=== PATIENT | female | born 1940 | race Caucasian/White ===

== ENCOUNTER 2017-04-19 21:56 | Emergency (ER) | payer MEDICARE, OTHER ==
[~2017-04-19] VITALS: Ht 154.9 cm; Wt 56.8 kg
[~2017-04-19 21:56] MED LIST: AMLO5TAB2 PO; ASCO-196 PO; ATEN25TA PO; CHOL100046 PO; CYCL-1 PO; FOLI0.8T7 PO; FURO40TA4 PO; GABA-530 PO; OMEP40CA37 PO; SEVE800T8 PO
[2017-04-19 22:47] LABS: BASOPHILS % (AUTO) 0.3 % (0-1); EOSINOPHILS # (AUTO) 0.3 X10'3 (0-0.9); EOSINOPHILS % (AUTO) 3.4 % (0-6); HEMATOCRIT 31.5 % (35.0-45.0); HEMOGLOBIN 10.6 g/dl (12.0-16.0); LYMPHOCYTES # (AUTO) 0.7 X10'3 (1.1-4.8); MEAN CORPUSCULAR HEMOGLOBIN 32.8 PG (27.0-31.0); MEAN CORPUSCULAR HGB CONC 33.4 % (33.0-36.5); MEAN PLATELET VOLUME 7.7 FL (7.4-10.4); MONOCYTES # (AUTO) 0.4 X10'3 (0-0.9); MONOCYTES % (AUTO) 4.5 % (2-12); NEUTROPHILS # (AUTO) 7.7 X10'3 (1.8-7.7); NEUTROPHILS % (AUTO) 83.8 % (42-75); PLATELET COUNT 183 X10'3 (140-440); RED BLOOD COUNT 3.22 X10'6 (4.20-5.60); RED CELL DISTRIBUTION WIDTH 14.3 % (11.5-14.5); WHITE BLOOD COUNT 9.1 X10'3 (4.5-11.0)
[2017-04-19 22:58] LABS: ALANINE AMINOTRANSFERASE 31 U/L (12-78); ALBUMIN 3.6 G/DL (3.4-5.0); ALBUMIN/GLOBULIN RATIO 0.8 (1.1-1.5); ALKALINE PHOSPHATASE 120 IU/L (46-116); ANION GAP 8 (8-16); ASPARTATE AMINO TRANSFERASE 21 U/L (10-37); BILIRUBIN,TOTAL 0.4 MG/DL (0.1-1.0); BLOOD UREA NITROGEN 45 MG/DL (7-18); BUN/CREATININE RATIO 7.4 (6.6-38.0); CALCIUM 9.2 MG/DL (8.5-10.1); CHLORIDE 101 MMOL/L (99-107); CREATININE 6.06 MG/DL (0.40-0.90); GLUCOSE 202 MG/DL (70-104); SODIUM 136 MMOL/L (135-145); TOTAL CARBON DIOXIDE 26.7 MMOL/L (24-32); TOTAL PROTEIN 7.9 G/DL (6.4-8.2); eGFR 7 ML/MIN
[2017-04-19 22:59] LABS: D-DIMER 2.61 MG/L FEU (0-0.50); INR 0.9 INR; PARTIAL THROMBOPLASTIN TIME 29 SECONDS (22-32); PROTHROMBIN TIME 9.7 SECONDS (9.0-12.0)
[2017-04-19] MEDS ORDERED: nitroGLYCERIN 1gm ointment UD TP ONE (23:55)
[2017-04-20] MEDS ORDERED: amLODIPine 5mg tablet PO STA (00:56)
[2017-04-20] MEDS ORDERED: metoprolol tartrate 50mg tablet PO STA (00:56)
[2017-04-20] MEDS ORDERED: furosemide 10 MG/1 ML 10ml inj IV STA (00:56)
[2017-04-20] MEDS ORDERED: acetaminophen 325mg tablet PO ONE (04:05)
[2017-04-20] MEDS ORDERED: iohexol 350MG/ML 100ml bottle IV ONE (07:50)
[2017-04-20 09:42] VITALS: BP 170/87
== END 2017-04-20 11:31 | disposition home or self-care (01) ==
LOC: ER 21:56
DX: R06.02 Shortness of breath (principal); R07.9 Chest pain, unspecified; R05 Cough; I50.9 Heart failure, unspecified; E11.22 Type 2 diabetes mellitus with diabetic chronic kidney disease; N18.6 End stage renal disease; Z99.2 Dependence on renal dialysis
CPT/HCPCS: 36415; 71045; 71275; 80053; 83880; 84484; 85025; 85379; 85610; 85730; 87502; 87503; 93005; 99285; J7030; Q9967; J1940

== ENCOUNTER 2017-05-09 03:50 | Emergency (ER) | payer MEDICARE, OTHER ==
[~2017-05-09] VITALS: Ht 157.5 cm; Wt 56.4 kg
[2017-05-09] MEDS ORDERED: METO-467 PO (04:24)
[2017-05-09] MEDS ORDERED: ipratropium/albuterol 3ml nebule NEB ONE (04:25)
[2017-05-09] MEDS ORDERED: dexamethasone sod phosphate 10mg/ml inj IV STA (04:25)
[2017-05-09 04:47] LABS: BASOPHILS # (AUTO) 0.1 X10'3 (0-0.2); BASOPHILS % (AUTO) 0.8 % (0-1); EOSINOPHILS # (AUTO) 0.2 X10'3 (0-0.9); HEMATOCRIT 33.7 % (35.0-45.0); HEMOGLOBIN 11.4 g/dl (12.0-16.0); LYMPHOCYTES # (AUTO) 1.2 X10'3 (1.1-4.8); LYMPHOCYTES % (AUTO) 10.2 % (21-51); MEAN CORPUSCULAR HEMOGLOBIN 33.4 PG (27.0-31.0); MEAN CORPUSCULAR VOLUME 98.2 FL (78-98); MEAN PLATELET VOLUME 9.2 FL (7.4-10.4); MONOCYTES # (AUTO) 0.6 X10'3 (0-0.9); MONOCYTES % (AUTO) 4.9 % (2-12); NEUTROPHILS # (AUTO) 9.8 X10'3 (1.8-7.7); NEUTROPHILS % (AUTO) 82.1 % (42-75); PLATELET COUNT 148 X10'3 (140-440); RED BLOOD COUNT 3.43 X10'6 (4.20-5.60); RED CELL DISTRIBUTION WIDTH 15.9 % (11.5-14.5); WHITE BLOOD COUNT 11.9 X10'3 (4.5-11.0)
[2017-05-09 06:29] LABS: ALANINE AMINOTRANSFERASE 25 U/L (12-78); ALBUMIN 3.6 G/DL (3.4-5.0); ALBUMIN/GLOBULIN RATIO 0.9 (1.1-1.5); ALKALINE PHOSPHATASE 106 IU/L (46-116); ANION GAP 15 (8-16); ASPARTATE AMINO TRANSFERASE 16 U/L (10-37); BILIRUBIN,TOTAL 0.5 MG/DL (0.1-1.0); BLOOD UREA NITROGEN 63 MG/DL (7-18); BUN/CREATININE RATIO 8.9 (6.6-38.0); CALCIUM 8.9 MG/DL (8.5-10.1); CHLORIDE 100 MMOL/L (99-107); GLUCOSE 244 MG/DL (70-104); POTASSIUM 3.9 MMOL/L (3.5-5.1); SODIUM 139 MMOL/L (135-145); TOTAL CARBON DIOXIDE 24.1 MMOL/L (24-32); TOTAL PROTEIN 7.6 G/DL (6.4-8.2); eGFR 6 ML/MIN
[2017-05-09 07:10] VITALS: BP 135/56
== END 2017-05-09 07:10 | disposition home or self-care (01) ==
LOC: ER 03:50
DX: R06.02 Shortness of breath (principal); E11.22 Type 2 diabetes mellitus with diabetic chronic kidney disease; N18.6 End stage renal disease; I50.9 Heart failure, unspecified; Z98.890 Other specified postprocedural states; Z99.2 Dependence on renal dialysis; Z95.1 Presence of aortocoronary bypass graft; Z79.899 Other long term (current) drug therapy
CPT/HCPCS: 36415; 71045; 80053; 83880; 84484; 85025; 93005; 94640; 94760; 96374; 99285; J1100; J7030

== ENCOUNTER 2017-09-21 02:00 | Inpatient (IN) | payer MEDICARE, OTHER ==
[~2017-09-21] VITALS: Ht 162.6 cm; Wt 45.0 kg
[~2017-09-21 02:00] MED LIST changes: +AMLO2.5T2 PO; -ATEN25TA PO; -FURO40TA4 PO; +METO-395 PO; +METO-467 PO; +OMEP20TA5 PO
[2017-09-21 02:33] LABS: BASOPHILS # (AUTO) 0.1 X10'3 (0-0.2); BASOPHILS % (AUTO) 0.4 % (0-1); EOSINOPHILS # (AUTO) 0.3 X10'3 (0-0.9); EOSINOPHILS % (AUTO) 2.9 % (0-6); HEMATOCRIT 28.3 % (35.0-45.0); HEMOGLOBIN 9.7 g/dl (12.0-16.0); LYMPHOCYTES # (AUTO) 0.9 X10'3 (1.1-4.8); LYMPHOCYTES % (AUTO) 7.9 % (21-51); MEAN CORPUSCULAR HEMOGLOBIN 33.8 PG (27.0-31.0); MEAN CORPUSCULAR HGB CONC 34.2 % (33.0-36.5); MEAN CORPUSCULAR VOLUME 98.7 FL (78-98); MEAN PLATELET VOLUME 8.3 FL (7.4-10.4); MONOCYTES # (AUTO) 0.3 X10'3 (0-0.9); MONOCYTES % (AUTO) 2.4 % (2-12); NEUTROPHILS # (AUTO) 10.3 X10'3 (1.8-7.7); NEUTROPHILS % (AUTO) 86.4 % (42-75); PLATELET COUNT 224 X10'3 (140-440); RED BLOOD COUNT 2.86 X10'6 (4.20-5.60); RED CELL DISTRIBUTION WIDTH 15.8 % (11.5-14.5); WHITE BLOOD COUNT 11.9 X10'3 (4.5-11.0)
[2017-09-21 02:43] LABS: PARTIAL THROMBOPLASTIN TIME 25 SECONDS (22-32); PROTHROMBIN TIME 10.1 SECONDS (9.0-12.0)
[2017-09-21 02:49] LABS: ALANINE AMINOTRANSFERASE 28 U/L (12-78); ALBUMIN 3.4 G/DL (3.4-5.0); ALBUMIN/GLOBULIN RATIO 0.7 (1.1-1.5); ALKALINE PHOSPHATASE 118 IU/L (46-116); ANION GAP 16 (8-16); ASPARTATE AMINO TRANSFERASE 21 U/L (10-37); BILIRUBIN,TOTAL 0.5 MG/DL (0.1-1.0); BLOOD UREA NITROGEN 42 MG/DL (7-18); BUN/CREATININE RATIO 6.3 (6.6-38.0); CALCIUM 8.5 MG/DL (8.5-10.1); CHLORIDE 100 MMOL/L (99-107); CREATININE 6.67 MG/DL (0.40-0.90); GLUCOSE 279 MG/DL (70-104); POTASSIUM 3.9 MMOL/L (3.5-5.1); SODIUM 140 MMOL/L (135-145); TOTAL CARBON DIOXIDE 23.7 MMOL/L (24-32); TOTAL PROTEIN 8.1 G/DL (6.4-8.2); eGFR 6 ML/MIN
[2017-09-21] MEDS ORDERED: magnesium hydroxide 30ml (MOM) UD suspension PO PRN (03:25)
[2017-09-21] MEDS ORDERED: acetaminophen 325mg tablet PO PRN (03:25)
[2017-09-21 04:46] LABS: ABG BASE EXCESS 1.1 mmol/L (-2.0-3.0); ABG HCO3 25.5 mmol/L (22.0-26.0); ABG OXYGEN SATURATION 96.8 % (95-98); ABG PCO2 (T) 39.4 mmHg (32.0-45.0); ABG PH (T) 7.428 (7.350-7.450); ABG PO2 (T) 100.4 mmHg (83-108); ALLEN'S TEST Positive; FCOHb 0.1 % (0.5-1.5); FMetHb 0.3 % (0.3-1.12); FO2Hb 96.4 % (94-100); PATIENT TEMPERATURE 36.9; RESPIRATORY RATE 12 b/min; TOTAL HEMOGLOBIN 9.7 G/dl (12.0-16.0)
[2017-09-21] MEDS ORDERED: heparin 1,000unit/ml 10ml vial 10 ML IV ONE (04:53)
[2017-09-21] MEDS ORDERED: normal saline 1000ml 250 ML IV PRN (04:53)
[2017-09-21] MEDS ORDERED: heparin 1,000 units/ml 10ml inj IV ONE (04:55)
[2017-09-21] MEDS ORDERED: albumin (Human) 5% 250ml 250 ML IV PRN (04:55)
[2017-09-21] MEDS ORDERED: epoetin 20,000 units/ml inj IV ONE (04:55)
[2017-09-21] MEDS ORDERED: heparin 1,000 units/ml 10ml inj HE ONE ×2 (05:00)
[2017-09-21 05:15] VITALS: BP 153/57
[2017-09-21 07:50] VITALS: BP 116/63
[2017-09-21] MEDS ORDERED: METO25TA6 PO (07:51)
[2017-09-21] MEDS ORDERED: heparin, porcine 5000 units/ml vial SQ SCH (08:00)
[2017-09-21] MEDS ORDERED: LIDOcaine 1% (10mg/ml) 2ml vial SQ ONE (08:40)
[2017-09-21 11:11] VITALS: BP 145/61
[2017-09-21] MEDS ORDERED: folic acid/vitamin B complex w/vitamin C 0.8mg tablet PO SCH (16:05)
[2017-09-21] MEDS ORDERED: cyclobenzaprine 10mg tablet PO PRN (16:05)
[2017-09-21] MEDS ORDERED: gabapentin 100mg capsule PO PRN (16:05)
[2017-09-21] MEDS ORDERED: vitamin D (cholecalciferol) 1,000 unit tablet PO SCH (16:05)
[2017-09-21] MEDS ORDERED: amLODIPine 5mg tablet PO ONE (16:20)
[2017-09-21] MEDS ORDERED: heparin, porcine 5000 units/ml vial SQ ONE (16:20)
[2017-09-21] MEDS ORDERED: metoprolol tartrate 25mg tablet PO ONE (16:20)
[2017-09-21] MEDS ORDERED: sevelamer carbonate 800mg tablet PO SCH (18:00)
[2017-09-21] MEDS ORDERED: metoprolol tartrate 25mg tablet PO SCH (20:00)
[2017-09-21] MEDS ORDERED: amLODIPine 5mg tablet PO SCH (20:00)
[2017-09-21] MEDS ORDERED: gabapentin 100mg capsule PO SCH (21:00)
[2017-09-22] MEDS ORDERED: pantoprazole 40mg Tablet.DR PO SCH (08:00)
== END 2017-09-21 17:20 | disposition home or self-care (01) | DRG 291 ==
LOC: ER 02:00 → ED HOLD 03:24 → PCU 3S 05:00
PROVIDERS: ATTEND Internal Medicine Critical Care Medicine
PROC: 5A1D70Z Performance of Urinary Filtration, Intermittent, Less than 6 Hours Per Day (ICD-10-PCS; principal; 2017-09-21)
PROC: 5A09357 Assistance with Respiratory Ventilation, Less than 24 Consecutive Hours, Continuous Positive Airway Pressure (ICD-10-PCS; 2017-09-21)
DX: I13.2 Hypertensive heart and chronic kidney disease with heart failure and with stage 5 chronic kidney disease, or end stage renal disease (principal); N18.6 End stage renal disease; J96.91 Respiratory failure, unspecified with hypoxia; E87.70 Fluid overload, unspecified; E11.22 Type 2 diabetes mellitus with diabetic chronic kidney disease; G25.81 Restless legs syndrome; I08.1 Rheumatic disorders of both mitral and tricuspid valves; I50.9 Heart failure, unspecified; Z99.2 Dependence on renal dialysis; Z79.899 Other long term (current) drug therapy; Z87.81 Personal history of (healed) traumatic fracture; Z80.52 Family history of malignant neoplasm of bladder
CPT/HCPCS: 36415; 36600; 71045; 80053; 82803; 83880; 84484; 85018; 85025; 85610; 85730; 87070; 93306; 94660; 94760; 99285; A6402; G0257; J0885; J1644; J3490; J7030

== ENCOUNTER 2017-10-09 03:22 | Emergency (ER) | payer MEDICARE, OTHER ==
[~2017-10-09] VITALS: Ht 154.9 cm; Wt 56.8 kg
[~2017-10-09 03:22] MED LIST changes: -AMLO2.5T2 PO; -ASCO-196 PO; -METO-395 PO; -METO-467 PO; +METO25TA6 PO; -OMEP40CA37 PO
[2017-10-09 03:52] LABS: BASOPHILS % (AUTO) 0.4 % (0-1); EOSINOPHILS # (AUTO) 0.2 X10'3 (0-0.9); EOSINOPHILS % (AUTO) 2.6 % (0-6); HEMATOCRIT 32.8 % (35.0-45.0); HEMOGLOBIN 11.1 g/dl (12.0-16.0); LYMPHOCYTES % (AUTO) 10.9 % (21-51); MEAN CORPUSCULAR VOLUME 102.8 FL (78-98); MEAN PLATELET VOLUME 8.4 FL (7.4-10.4); MONOCYTES # (AUTO) 0.4 X10'3 (0-0.9); MONOCYTES % (AUTO) 4.1 % (2-12); NEUTROPHILS # (AUTO) 7.5 X10'3 (1.8-7.7); PLATELET COUNT 179 X10'3 (140-440); RED BLOOD COUNT 3.19 X10'6 (4.20-5.60); RED CELL DISTRIBUTION WIDTH 17.1 % (11.5-14.5); WHITE BLOOD COUNT 9.2 X10'3 (4.5-11.0)
[2017-10-09 04:04] LABS: INR 0.9 INR; PARTIAL THROMBOPLASTIN TIME 28 SECONDS (22-32); PROTHROMBIN TIME 9.4 SECONDS (9.0-12.0)
[2017-10-09 04:08] LABS: ALANINE AMINOTRANSFERASE 20 U/L (12-78); ALBUMIN 3.9 G/DL (3.4-5.0); ALBUMIN/GLOBULIN RATIO 0.8 (1.1-1.5); ALKALINE PHOSPHATASE 134 IU/L (46-116); ANION GAP 7 (8-16); ASPARTATE AMINO TRANSFERASE 20 U/L (10-37); BILIRUBIN,TOTAL 0.5 MG/DL (0.1-1.0); BLOOD UREA NITROGEN 39 MG/DL (7-18); BUN/CREATININE RATIO 7.3 (6.6-38.0); CALCIUM 9.2 MG/DL (8.5-10.1); CHLORIDE 98 MMOL/L (99-107); CREATININE 5.31 MG/DL (0.40-0.90); GLUCOSE 187 MG/DL (70-104); POTASSIUM 3.2 MMOL/L (3.5-5.1); SODIUM 137 MMOL/L (135-145); TOTAL CARBON DIOXIDE 32.2 MMOL/L (24-32); TOTAL PROTEIN 8.6 G/DL (6.4-8.2); eGFR 8 ML/MIN
[2017-10-09] MEDS ORDERED: potassium Cl 20 mEq SR tablet PO ONE (05:00)
[2017-10-09 05:25] VITALS: BP 139/56
== END 2017-10-09 05:29 | disposition home or self-care (01) ==
LOC: ER 03:22
DX: J81.1 Chronic pulmonary edema (principal); E87.70 Fluid overload, unspecified; I50.9 Heart failure, unspecified; E11.9 Type 2 diabetes mellitus without complications; Z98.890 Other specified postprocedural states; Z79.899 Other long term (current) drug therapy; Z99.2 Dependence on renal dialysis
CPT/HCPCS: 36415; 71045; 80053; 84484; 85025; 85610; 85730; 93005; 99285

== ENCOUNTER 2018-06-01 08:37 | Day surgery (SDC) | payer MEDICARE, OTHER ==
[~2018-06-01] VITALS: Ht 154.9 cm; Wt 57.3 kg
[~2018-06-01 08:37] MED LIST changes: +AMLO-314 PO; -AMLO5TAB2 PO
[2018-06-01] MEDS ORDERED: normal saline 1000ml 1,000 ML IV SCH (09:10)
[2018-06-01] MEDS ORDERED: FURO80TA87 PO (09:12)
[2018-06-01] MEDS ORDERED: CALC668T PO (09:14)
[2018-06-01] MEDS ORDERED: HYDR-4069 PO (09:16)
[2018-06-01] MEDS ORDERED: ASPI81TA52 PO (09:18)
[2018-06-01 09:30] VITALS: BP 125/58
[2018-06-01 09:48] LABS: BASOPHILS # (AUTO) 0.1 X10'3 (0-0.2); BASOPHILS % (AUTO) 0.7 % (0-1); EOSINOPHILS # (AUTO) 0.2 X10'3 (0-0.9); EOSINOPHILS % (AUTO) 2.9 % (0-6); HEMATOCRIT 33.8 % (35.0-45.0); HEMOGLOBIN 11.1 g/dl (12.0-16.0); LYMPHOCYTES # (AUTO) 0.7 X10'3 (1.1-4.8); LYMPHOCYTES % (AUTO) 8.4 % (21-51); MEAN CORPUSCULAR HEMOGLOBIN 32.2 PG (27.0-31.0); MEAN CORPUSCULAR VOLUME 97.5 FL (78-98); MEAN PLATELET VOLUME 8.7 FL (7.4-10.4); MONOCYTES # (AUTO) 0.7 X10'3 (0-0.9); MONOCYTES % (AUTO) 8.1 % (2-12); NEUTROPHILS # (AUTO) 6.8 X10'3 (1.8-7.7); NEUTROPHILS % (AUTO) 79.9 % (42-75); PLATELET COUNT 176 X10'3 (140-440); RED BLOOD COUNT 3.46 X10'6 (4.20-5.60); RED CELL DISTRIBUTION WIDTH 16.9 % (11.5-14.5); WHITE BLOOD COUNT 8.5 X10'3 (4.5-11.0)
[2018-06-01 09:53] LABS: ALBUMIN 3.8 G/DL (3.4-5.0); ANION GAP 10 (8-16); BLOOD UREA NITROGEN 40 MG/DL (7-18); BUN/CREATININE RATIO 8.2 (6.6-38.0); CALCIUM 9.7 MG/DL (8.5-10.1); CHLORIDE 94 MMOL/L (99-107); CREATININE 4.89 MG/DL (0.40-0.90); GLUCOSE 92 MG/DL (70-104); POTASSIUM 3.9 MMOL/L (3.5-5.1); SODIUM 137 MMOL/L (135-145); TOTAL CARBON DIOXIDE 33.2 MMOL/L (24-32); eGFR 9 ML/MIN
[2018-06-01 10:09] LABS: PROTHROMBIN TIME 9.9 SECONDS (9.0-12.0)
[2018-06-01] MEDS ORDERED: LIDOcaine 1%/PF 5ML 10 MG/ML VIAL ONE (10:20)
[2018-06-01] MEDS ORDERED: LIDOcaine 1%/PF 5ML 10 MG/ML VIAL SQ ONE (10:20)
[2018-06-01] MEDS ORDERED: heparin 1,000 UNITS/NS 500ml 500 ML ICATH ONE (10:20)
[2018-06-01] MEDS ORDERED: midazolam 2 mg/2 ml injection ONE (10:20)
[2018-06-01] MEDS ORDERED: fentaNYL/PF 50MCG/1 ML 2ML syringe IV PRN (10:20)
[2018-06-01] MEDS ORDERED: midazolam 2 mg/2 ml injection IV PRN (10:20)
[2018-06-01] MEDS ORDERED: iohexol 300mg/ml 100ml inj. ONE (10:21)
[2018-06-01] MEDS ORDERED: fentaNYL/PF 50MCG/1 ML 2ML syringe ONE (10:21)
[2018-06-01] MEDS ORDERED: heparin 1,000 UNITS/NS 500ml 500 ML ONE (10:21)
[2018-06-01 11:31] VITALS: BP 144/48
[2018-06-01 11:46] VITALS: BP 140/75
[2018-06-01 12:01] VITALS: BP 148/69
[2018-06-01 12:15] VITALS: BP 145/63
[2018-06-01 12:31] VITALS: BP 154/67
== END 2018-06-01 12:55 | disposition home or self-care (01) ==
LOC: SSTAY O 08:37
PROVIDERS: ATTEND Radiology Diagnostic Radiology
DX: T82.858A Stenosis of other vascular prosthetic devices, implants and grafts, initial encounter (principal); Y83.8 Other surgical procedures as the cause of abnormal reaction of the patient, or of later complication, without mention of misadventure at the time of the procedure; Y92.89 Other specified places as the place of occurrence of the external cause; Z79.01 Long term (current) use of anticoagulants
CPT/HCPCS: 36415; 36902; 80048; 85025; 85610; 99152; 99153; J1644; J2001; J2250; J3010; J7030; Q9967; C1725; C1769; C1894

== ENCOUNTER 2018-06-21 23:36 | Inpatient (IN) | payer MEDICARE, OTHER | END 2018-06-23 20:00 | disposition still patient (30) | LOC: ER 23:36 → ED HOLD 06-22 02:18 → CICU 2S 06-22 04:47 | DX: I50.23 Acute on chronic systolic (congestive) heart failure (principal); J18.9 Pneumonia, unspecified organism; I21.A1 Myocardial infarction type 2; N18.6 End stage renal disease; I50.9 Heart failure, unspecified ==

== ENCOUNTER 2018-07-04 22:40 | Inpatient (IN) | payer MEDICARE, OTHER | END 2018-07-06 19:50 | disposition home or self-care (01) | LOC: ED HOLD 07-05 00:26 → ER 22:40 → PCU 3S 07-05 07:54 | DX: N18.6 End stage renal disease (principal); I50.1 Left ventricular failure, unspecified; E11.22 Type 2 diabetes mellitus with diabetic chronic kidney disease; Z99.2 Dependence on renal dialysis ==

== ENCOUNTER 2018-08-05 08:28 | Outpatient (CLI) | payer MEDICARE, OTHER ==
[2018-08-05] VITALS (8 sets, daily range): BP systolic 127–150; BP diastolic 51–59
[~2018-08-05] VITALS: Ht 154.9 cm; Wt 57.7 kg
[~2018-08-05 08:28] MED LIST changes: +ASPI81TA52 PO; +CALC668T PO; -CHOL100046 PO; -CYCL-1 PO; +FURO80TA87 PO; +HYDR-4069 PO; -SEVE800T8 PO
[2018-08-05] MEDS ORDERED: nitroGLYCERIN 0.4mg SUBLingual tab SL PRN (09:40)
[2018-08-05] MEDS ORDERED: aminophylline 250mg/10ml inj. IV PRN (09:40)
[2018-08-05] MEDS ORDERED: regadenoson 0.4mg/5ml syringe IV ONE (09:40)
[2018-08-05] MEDS ORDERED: normal saline 500ml IV soln 500 ML IV ONE (09:40)
== END 2018-08-05 23:59 | disposition home or self-care (01) ==
LOC: CARD DIAG 08:28
PROVIDERS: ATTEND Internal Medicine Cardiovascular Disease
DX: I08.3 Combined rheumatic disorders of mitral, aortic and tricuspid valves (principal); I11.0 Hypertensive heart disease with heart failure; I50.22 Chronic systolic (congestive) heart failure; Z87.891 Personal history of nicotine dependence; E11.9 Type 2 diabetes mellitus without complications
CPT/HCPCS: 78452; 93017; 93306; A9500; J7030

== ENCOUNTER 2018-08-24 11:54 | Day surgery (SDC) | payer MEDICARE, OTHER ==
[2018-08-24] VITALS (10 sets, daily range): BP systolic 152–193; BP diastolic 60–77
[~2018-08-24] VITALS: Ht 154.9 cm; Wt 57.3 kg
[2018-08-24] MEDS ORDERED: normal saline 1,000 ML IV SCH (12:20)
[2018-08-24] MEDS ORDERED: LORazepam 0.5 MG tablet PO PRN (12:20)
[2018-08-24] MEDS ORDERED: diphenhydrAMINE 25mg capsule PO PRN (12:20)
[2018-08-24] MEDS ORDERED: ATEN5POW3 PO (12:33)
[2018-08-24] MEDS ORDERED: AMLO1CAP19 PO (12:33)
[2018-08-24 13:32] LABS: BASOPHILS # (AUTO) 0.1 X10'3 (0-0.2); EOSINOPHILS # (AUTO) 0.3 X10'3 (0-0.9); EOSINOPHILS % (AUTO) 3.7 % (0-6); HEMATOCRIT 41.9 % (35.0-45.0); LYMPHOCYTES # (AUTO) 1.1 X10'3 (1.1-4.8); LYMPHOCYTES % (AUTO) 13.4 % (21-51); MEAN CORPUSCULAR HEMOGLOBIN 33.4 PG (27.0-31.0); MEAN CORPUSCULAR HGB CONC 33.4 g/dL (33.0-36.5); MEAN CORPUSCULAR VOLUME 99.9 FL (78-98); MEAN PLATELET VOLUME 9.1 FL (7.4-10.4); MONOCYTES # (AUTO) 0.8 X10'3 (0-0.9); MONOCYTES % (AUTO) 9.4 % (2-12); NEUTROPHILS # (AUTO) 5.9 X10'3 (1.8-7.7); NEUTROPHILS % (AUTO) 72.5 % (42-75); PLATELET COUNT 172 X10'3 (140-440); RED BLOOD COUNT 4.19 X10'6 (4.20-5.60); RED CELL DISTRIBUTION WIDTH 19.5 % (11.5-14.5); WHITE BLOOD COUNT 8.1 X10'3 (4.5-11.0)
[2018-08-24 13:36] LABS: PARTIAL THROMBOPLASTIN TIME 32 SECONDS (22-32)
[2018-08-24 13:39] LABS: ANION GAP 9 (8-16); BLOOD UREA NITROGEN 36 MG/DL (7-18); BUN/CREATININE RATIO 6.8 (6.6-38.0); CALCIUM 10.4 MG/DL (8.5-10.1); CHLORIDE 100 MMOL/L (99-107); CREATININE 5.28 MG/DL (0.40-0.90); GLUCOSE 89 MG/DL (70-104); SODIUM 141 MMOL/L (135-145); TOTAL CARBON DIOXIDE 31.7 MMOL/L (24-32); eGFR 8 ML/MIN
[2018-08-24] MEDS ORDERED: LIDOcaine 1% (10mg/ml)w/preservative injection 20ml MDV ONE (14:02)
[2018-08-24] MEDS ORDERED: midazolam 2 mg/2 ml injection ONE (14:02)
[2018-08-24] MEDS ORDERED: iohexol 350MG/ML 100ml bottle IV ONE (14:02)
[2018-08-24] MEDS ORDERED: nitroGLYCERIN-Tridil 50MG/D5W 250 ML IV ONE (14:02)
[2018-08-24] MEDS ORDERED: iohexol 350 MG/ML 50ML vial IV ONE (14:02)
[2018-08-24] MEDS ORDERED: fentaNYL/PF 50MCG/1 ML 2ML syringe ONE (14:02)
[2018-08-24] MEDS ORDERED: heparin 1,000unit/ml 10ml vial 10 ML ONE (14:02)
[2018-08-24 15:21] LABS: ISTAT Hct MIX 38 %PCV (35-48); ISTAT O2 SATURATION MIX VENOUS 74 % (60-80); ISTAT SOURCE MIX
[2018-08-24 15:21] LABS: ISTAT HGB ART 12.6 g/dl (12.0-16.0); ISTAT Hct ART 37 %PCV (35-48); ISTAT O2 SATURATION ARTERIAL 98 % (95-98); ISTAT SOURCE ART
[2018-08-24] MEDS ORDERED: hydrALAZINE 20mg/ml inj. IV ONE (15:29)
[2018-08-24] MEDS ORDERED: OXAZEpam 15mg capsule PO PRN (16:40)
== END 2018-08-24 20:00 | disposition home or self-care (01) ==
LOC: SSTAY O 11:54
PROVIDERS: ATTEND Internal Medicine Cardiovascular Disease
DX: I25.10 Atherosclerotic heart disease of native coronary artery without angina pectoris (principal); I35.0 Nonrheumatic aortic (valve) stenosis; I27.20 Pulmonary hypertension, unspecified; I13.2 Hypertensive heart and chronic kidney disease with heart failure and with stage 5 chronic kidney disease, or end stage renal disease; E11.22 Type 2 diabetes mellitus with diabetic chronic kidney disease; N18.6 End stage renal disease; I48.91 Unspecified atrial fibrillation; I50.22 Chronic systolic (congestive) heart failure; E78.5 Hyperlipidemia, unspecified; Z98.890 Other specified postprocedural states; Z79.899 Other long term (current) drug therapy; I42.9 Cardiomyopathy, unspecified
CPT/HCPCS: 36415; 80048; 82803; 85014; 85025; 85610; 85730; 93005; 93460; 99152; 99153; A6257; C1760; J0360; J1644; J2001; J2250; J3010; J7030; Q0163; Q9967; A4620; J3490

== ENCOUNTER 2019-03-19 22:50 | Inpatient (IN) | payer MEDICARE, OTHER ==
[~2019-03-19] VITALS: Ht 154.9 cm; Wt 55.1 kg
[~2019-03-19 22:50] MED LIST changes: -AMLO-314 PO; +AMLO1CAP19 PO; -ASPI81TA52 PO; +ATEN5POW3 PO; -HYDR-4069 PO; -METO25TA6 PO
--- NOTE | 2019-03-19 23:25 | NUR ---
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 WHEN ACCESSING THE RIGHT SIDE THE VIEW BLOWS WHEN ADVANCING THE CATHETER. I TRIED TWICE AND JAMAAL HALL TRIED WELL WITHOUT SUCCESS. WILL NOTIFY
[2019-03-19 23:45] LABS: BASOPHILS % (AUTO) 0.5 % (0-1); EOSINOPHILS # (AUTO) 0.1 X10'3 (0-0.9); EOSINOPHILS % (AUTO) 1.1 % (0-6); HEMATOCRIT 32.5 % (35.0-45.0); HEMOGLOBIN 11.1 g/dl (12.0-16.0); LYMPHOCYTES # (AUTO) 0.3 X10'3 (1.1-4.8); LYMPHOCYTES % (AUTO) 4.3 % (21-51); MEAN CORPUSCULAR HEMOGLOBIN 33.3 PG (27.0-31.0); MEAN CORPUSCULAR HGB CONC 34.3 g/dL (33.0-36.5); MEAN CORPUSCULAR VOLUME 97.2 FL (78-98); MEAN PLATELET VOLUME 8.9 FL (7.4-10.4); MONOCYTES # (AUTO) 0.5 X10'3 (0-0.9); MONOCYTES % (AUTO) 6.1 % (2-12); PLATELET COUNT 133 X10'3 (140-440); RED BLOOD COUNT 3.35 X10'6 (4.20-5.60); RED CELL DISTRIBUTION WIDTH 16.9 % (11.5-14.5)
--- NOTE | 2019-03-19 23:46 | NUR ---
PT HAD AN EPISODE OF DIARRHEA. SHE WAS CLEANED UP AND PLACED BACK INTO BED.
--- NOTE | 2019-03-19 23:54 | NUR ---
PT STATES IT IS GETTING HARDER TO BREATHE. HER 02 SATS ARE 88% ON 4LPM, SHE DOESN'T NORMALLY REQUIRE O2. MD AWARE AND REQUESTS WE PAGE RT FOR BIPAP - RT HAS BEEN PAGED.
[2019-03-19 23:57] LABS: ALANINE AMINOTRANSFERASE 23 U/L (12-78); ALBUMIN 3.4 G/DL (3.4-5.0); ALBUMIN/GLOBULIN RATIO 0.7 (1.1-1.5); ALKALINE PHOSPHATASE 94 IU/L (46-116); ANION GAP 7 (8-16); ASPARTATE AMINO TRANSFERASE 17 U/L (10-37); BILIRUBIN,TOTAL 0.5 MG/DL (0.1-1.0); BLOOD UREA NITROGEN 35 MG/DL (7-18); BUN/CREATININE RATIO 5.6 (6.6-38.0); CHLORIDE 98 MMOL/L (99-107); CREATININE 6.29 MG/DL (0.40-0.90); GLUCOSE 197 MG/DL (70-104); POTASSIUM 4.6 MMOL/L (3.5-5.1); SODIUM 137 MMOL/L (135-145); TOTAL CARBON DIOXIDE 31.7 MMOL/L (24-32); TOTAL PROTEIN 8.2 G/DL (6.4-8.2); eGFR 6 ML/MIN
[2019-03-20] LABS: TROPONIN I < 0.04 NG/ML (0.0-0.05)
[2019-03-20] MEDS ORDERED: ondansetron/PF 4mg/2ml inj IV ONE ×2 (00:05→01:20)
--- NOTE | 2019-03-20 00:08 | NUR ---
MD AT BEDSIDE WELL RT - PT WILL BE MEDIACTED FOR HER NAUSEA AND THEN PLACED ON BiPAP. SHE REPORTS HER BREATHING IS GETTING WORSE. HER HR IS UP TO 134 AND HER SAT REMAINS IN THE HIGH 80'S ON 6LPM VIA NC
[2019-03-20] MEDS ORDERED: CefTRIAXone/D5W-Rocephin 1gm 50 ML IV ONE (00:10)
[2019-03-20 00:11] LABS: ABG BASE EXCESS -1.4 mmol/L (-2.0-3.0); ABG HCO3 22.5 mmol/L (22.0-26.0); ABG OXYGEN SATURATION 85.8 % (95-98); ABG PCO2 (T) 36.4 mmHg (35.0-45.0); ABG PH (T) 7.413 (7.350-7.450); ABG PO2 (T) 53.6 mmHg (83-108); FCOHb 1.1 % (0.5-1.5); FLOW 4 L/min; FMetHb 0.3 % (0.3-1.12); FO2Hb 84.6 % (94-100); PATIENT TEMPERATURE 37.8; RESPIRATORY RATE (OBSERVED) 26 b/min; TOTAL HEMOGLOBIN 12.1 G/dl (12.0-16.0)
[2019-03-20] MEDS ORDERED: furosemide 40mg/4ml inj IV ONE (00:20)
[2019-03-20] MEDS ORDERED: furosemide 10 MG/1 ML 10ml inj IV ONE (00:20)
[2019-03-20] MEDS ORDERED: acetaminophen 325mg tablet PO ONE (02:00)
[2019-03-20] MEDS ORDERED: acetaminophen 650mg rectal suppository RC PRN (02:10)
[2019-03-20] MEDS ORDERED: proCHLORperazine 10 MG/2 ml inj IV PRN (02:10)
[2019-03-20] MEDS ORDERED: acetaminophen 325mg tablet PO PRN (02:10)
[2019-03-20] MEDS ORDERED: ipratropium/albuterol 3ml nebule NEB PRN (02:10)
[2019-03-20] MEDS ORDERED: HYDR-4069 PO (03:11)
[2019-03-20] MEDS ORDERED: FOLI0.8T7 PO (03:11)
[2019-03-20] MEDS ORDERED: CHOL400T14 PO (03:11)
[2019-03-20] MEDS ORDERED: AMLO2.5T2 PO (03:11)
[2019-03-20] MEDS ORDERED: LANT1000 PO (03:11)
[2019-03-20] MEDS ORDERED: METO25TA6 PO (03:11)
--- NOTE | 2019-03-20 04:00 | NUR ---
Patient in room ED 1. I have received report from JAMAAL Carver and had the opportunity to ask questions and assume patient care.
[2019-03-20 04:33] VITALS: BP 102/54
--- NOTE | 2019-03-20 04:37 | NUR ---
Patient arrived on PCU at 0420 2 RN skin check complete. MRSA swab collected, vital signs obtained within normal limits, patient is on 2 L NC. Patient would like to sleep and do DART in the AM. Patient is on mobile 68 due to previous continuous bipap order that has now been changed to PRN.
[2019-03-20 06:00] VITALS: BP 111/56
--- NOTE | 2019-03-20 06:23 | NUR ---
Patient in room PCU 3021. I have received report from AJMAAL BURKS and had the opportunity to ask questions and assume patient care.
--- NOTE | 2019-03-20 06:24 | NUR ---
Problems reprioritized. Patient report given, questions answered & plan of care reviewed with JAMAAL Ponce.
[2019-03-20 06:43] LABS: BASOPHILS % (AUTO) 0.6 % (0-1); EOSINOPHILS % (AUTO) 0 % (0-6); HEMATOCRIT 29.9 % (35.0-45.0); HEMOGLOBIN 10.3 g/dl (12.0-16.0); LYMPHOCYTES # (AUTO) 0.2 X10'3 (1.1-4.8); LYMPHOCYTES % (AUTO) 3.3 % (21-51); MEAN CORPUSCULAR HEMOGLOBIN 33.9 PG (27.0-31.0); MEAN CORPUSCULAR HGB CONC 34.3 g/dL (33.0-36.5); MEAN CORPUSCULAR VOLUME 98.7 FL (78-98); MEAN PLATELET VOLUME 9.5 FL (7.4-10.4); MONOCYTES # (AUTO) 0.4 X10'3 (0-0.9); MONOCYTES % (AUTO) 5.2 % (2-12); NEUTROPHILS # (AUTO) 6.5 X10'3 (1.8-7.7); NEUTROPHILS % (AUTO) 90.9 % (42-75); PLATELET COUNT 126 X10'3 (140-440); RED BLOOD COUNT 3.03 X10'6 (4.20-5.60); WHITE BLOOD COUNT 7.1 X10'3 (4.5-11.0)
[2019-03-20 07:00] LABS: PARTIAL THROMBOPLASTIN TIME 33 SECONDS (22-32)
[2019-03-20 07:15] LABS: HEMOGLOBIN A1C 5.9 % (4.5-6.2)
[2019-03-20 07:35] LABS: ALANINE AMINOTRANSFERASE 20 U/L (12-78); ALBUMIN 3.1 G/DL (3.4-5.0); ALBUMIN/GLOBULIN RATIO 0.7 (1.1-1.5); ALKALINE PHOSPHATASE 78 IU/L (46-116); ANION GAP 11 (8-16); ASPARTATE AMINO TRANSFERASE 19 U/L (10-37); BILIRUBIN,TOTAL 0.3 MG/DL (0.1-1.0); BLOOD UREA NITROGEN 39 MG/DL (7-18); BUN/CREATININE RATIO 5.8 (6.6-38.0); CALCIUM 8.9 MG/DL (8.5-10.1); CHLORIDE 99 MMOL/L (99-107); CREATININE 6.78 MG/DL (0.40-0.90); GLUCOSE 145 MG/DL (70-104); MAGNESIUM 1.7 MG/DL (1.5-2.4); POTASSIUM 4.9 MMOL/L (3.5-5.1); SODIUM 140 MMOL/L (135-145); TOTAL CARBON DIOXIDE 30.5 MMOL/L (24-32); TOTAL PROTEIN 7.6 G/DL (6.4-8.2); eGFR 6 ML/MIN
[2019-03-20] MEDS: calcium acetate 667mg (PhosLO) capsule PO SCH ×3 (07:50→17:30)
[2019-03-20] MEDS: azithromycin/NS 500mg/250ml 250 ML IV SCH (07:52)
[2019-03-20] MEDS: pantoprazole 40 MG vial IV SCH (07:52)
[2019-03-20] MEDS: hydrALAZINE 25 MG tablet PO SCH ×2 (07:53→20:19)
[2019-03-20] MEDS: furosemide 40mg tablet PO SCH ×3 (07:54→20:20)
[2019-03-20] MEDS: metoprolol tartrate 25mg tablet PO SCH ×2 (07:57→20:19)
[2019-03-20] MEDS: folic acid/vitamin B complex w/vitamin C 0.8mg tablet PO SCH (07:57)
[2019-03-20] MEDS: gabapentin 100mg capsule PO SCH ×3 (07:58→20:15)
[2019-03-20] MEDS: amLODIPine 2.5mg tablet PO SCH ×2 (07:59→20:19)
[2019-03-20] MEDS: cholecalciferol (vitamin D) 400 unit tablet PO SCH (07:59)
[2019-03-20] MEDS ORDERED: furosemide 40mg tablet PO SCH (08:00)
[2019-03-20] MEDS ORDERED: ATENOLOL PO SCH (08:00)
[2019-03-20] MEDS: heparin, porcine 5000 units/ml vial SQ SCH ×2 (08:00→20:18)
[2019-03-20] MEDS ORDERED: folic acid/vitamin B complex w/vitamin C 0.8mg tablet PO SCH (08:00)
[2019-03-20] MEDS ORDERED: normal saline 1000ml 250 ML IV PRN (09:12)
[2019-03-20] MEDS ORDERED: albumin (human) 25% 100ml IV 100 ML IV PRN (09:15)
[2019-03-20] MEDS ORDERED: epoetin 20,000 units/ml inj IV ONE (09:15)
[2019-03-20] MEDS ORDERED: LIDOcaine 1% (10mg/ml) 2ml vial SQ ONE (09:15)
[2019-03-20] MEDS ORDERED: heparin 1,000 units/ml 10ml inj HE ONE ×2 (09:20)
[2019-03-20] MEDS: ondansetron/PF 4mg/2ml inj IV PRN (09:26)
[2019-03-20 11:00] VITALS: BP 109/56
[2019-03-20] MEDS: acetaminophen 325mg tablet PO PRN ×2 (11:08→20:16)
[2019-03-20 15:00] VITALS: BP 109/51
--- NOTE | 2019-03-20 18:00 | NUR ---
Patient in room PCU 3021. I have received report from Kris HINTON and had the opportunity to ask questions and assume patient care.
--- NOTE | 2019-03-20 18:01 | NUR ---
RESTING IN BED WITH EYES CLOSED. DINNER AT BEDSIDE. RR 20. APPEARS TO BE SLEEPING. PHOS BINDERS HELD FOR NOW.
--- NOTE | 2019-03-20 18:37 | NUR ---
Problems reprioritized. Patient report given, questions answered & plan of care reviewed with JAMAAL DAMICO.
[2019-03-20 19:00] VITALS: BP 131/65
[2019-03-20 23:00] VITALS: BP 110/56
[2019-03-21] MEDS: CefTRIAXone 2gm/D5W 50ml 50 ML IV SCH (00:29)
[2019-03-21 03:00] VITALS: BP 116/56
[2019-03-21 05:36] LABS: BASOPHILS % (AUTO) 0.5 % (0-1); EOSINOPHILS % (AUTO) 0.4 % (0-6); HEMATOCRIT 28.4 % (35.0-45.0); HEMOGLOBIN 9.7 g/dl (12.0-16.0); LYMPHOCYTES # (AUTO) 0.4 X10'3 (1.1-4.8); LYMPHOCYTES % (AUTO) 7.4 % (21-51); MEAN CORPUSCULAR HEMOGLOBIN 33.7 PG (27.0-31.0); MEAN PLATELET VOLUME 9.4 FL (7.4-10.4); MONOCYTES # (AUTO) 0.3 X10'3 (0-0.9); MONOCYTES % (AUTO) 5.7 % (2-12); NEUTROPHILS # (AUTO) 4.7 X10'3 (1.8-7.7); PLATELET COUNT 113 X10'3 (140-440); RED BLOOD COUNT 2.87 X10'6 (4.20-5.60); RED CELL DISTRIBUTION WIDTH 17.1 % (11.5-14.5); WHITE BLOOD COUNT 5.5 X10'3 (4.5-11.0)
[2019-03-21 05:52] LABS: ALANINE AMINOTRANSFERASE 42 U/L (12-78); ALBUMIN 3.4 G/DL (3.4-5.0); ALBUMIN/GLOBULIN RATIO 0.8 (1.1-1.5); ALKALINE PHOSPHATASE 72 IU/L (46-116); ANION GAP 10 (8-16); ASPARTATE AMINO TRANSFERASE 46 U/L (10-37); BILIRUBIN,TOTAL 0.4 MG/DL (0.1-1.0); BLOOD UREA NITROGEN 25 MG/DL (7-18); CALCIUM 9.2 MG/DL (8.5-10.1); CHLORIDE 98 MMOL/L (99-107); CREATININE 4.98 MG/DL (0.40-0.90); GLUCOSE 105 MG/DL (70-104); MAGNESIUM 1.8 MG/DL (1.5-2.4); PHOSPHORUS 5.8 MG/DL (2.3-4.5); POTASSIUM 4.2 MMOL/L (3.5-5.1); SODIUM 138 MMOL/L (135-145); TOTAL CARBON DIOXIDE 30.5 MMOL/L (24-32); TOTAL PROTEIN 7.8 G/DL (6.4-8.2); eGFR 8 ML/MIN
[2019-03-21 06:00] VITALS: BP 122/55
--- NOTE | 2019-03-21 06:21 | NUR ---
Patient in room PCU 3021. I have received report from KAYLI. HINTON and had the opportunity to ask questions and assume patient care.
--- NOTE | 2019-03-21 06:36 | NUR ---
Problems reprioritized. Patient report given, questions answered & plan of care reviewed with Kris RN.
[2019-03-21] MEDS: calcium acetate 667mg (PhosLO) capsule PO SCH ×3 (07:46→17:44)
[2019-03-21] MEDS: pantoprazole 40 MG vial IV SCH (07:46)
[2019-03-21] MEDS: azithromycin/NS 500mg/250ml 250 ML IV SCH (07:47)
[2019-03-21] MEDS: hydrALAZINE 25 MG tablet PO SCH ×2 (07:47→19:58)
[2019-03-21] MEDS: furosemide 40mg tablet PO SCH ×3 (07:48→19:58)
[2019-03-21] MEDS: metoprolol tartrate 25mg tablet PO SCH ×2 (07:49→19:57)
[2019-03-21] MEDS: gabapentin 100mg capsule PO SCH ×3 (07:49→19:57)
[2019-03-21] MEDS: folic acid/vitamin B complex w/vitamin C 0.8mg tablet PO SCH (07:49)
[2019-03-21] MEDS: cholecalciferol (vitamin D) 400 unit tablet PO SCH (07:50)
[2019-03-21] MEDS: amLODIPine 2.5mg tablet PO SCH ×2 (07:50→19:57)
[2019-03-21] MEDS: heparin, porcine 5000 units/ml vial SQ SCH ×2 (07:51→19:58)
[2019-03-21] MEDS: guaiFENesin 200 MG/10 ML oral syrup UD cup PO PRN (08:04)
[2019-03-21 11:00] VITALS: BP 108/64
[2019-03-21 15:00] VITALS: BP 106/67
--- NOTE | 2019-03-21 18:18 | NUR ---
Problems reprioritized. Patient report given, questions answered & plan of care reviewed with laura stubbs.
--- NOTE | 2019-03-21 18:33 | NUR ---
Patient in room PCU 3021. I have received report from Kris HINTON and had the opportunity to ask questions and assume patient care.
[2019-03-21 19:00] VITALS: BP 132/61
[2019-03-21] MEDS: lactobacillus rhamnosus 10,000 MMU CELLS/CAPSULE PO SCH (19:57)
[2019-03-21 23:00] VITALS: BP 133/60
[2019-03-22] MEDS: guaiFENesin 200 MG/10 ML oral syrup UD cup PO PRN ×2 (00:19→20:43)
[2019-03-22] MEDS: CefTRIAXone 2gm/D5W 50ml 50 ML IV SCH (00:20)
[2019-03-22] MEDS ORDERED: lactulose 20gm/30ml cup PO PRN (02:10)
[2019-03-22 03:00] VITALS: BP 116/62
[2019-03-22 05:49] LABS: BASOPHILS % (AUTO) 0.5 % (0-1); EOSINOPHILS # (AUTO) 0.2 X10'3 (0-0.9); EOSINOPHILS % (AUTO) 3.6 % (0-6); HEMATOCRIT 27.3 % (35.0-45.0); HEMOGLOBIN 9.2 g/dl (12.0-16.0); LYMPHOCYTES # (AUTO) 0.6 X10'3 (1.1-4.8); LYMPHOCYTES % (AUTO) 10.1 % (21-51); MEAN CORPUSCULAR HEMOGLOBIN 33.1 PG (27.0-31.0); MEAN CORPUSCULAR HGB CONC 33.7 g/dL (33.0-36.5); MEAN CORPUSCULAR VOLUME 98.2 FL (78-98); MEAN PLATELET VOLUME 9.9 FL (7.4-10.4); MONOCYTES # (AUTO) 0.4 X10'3 (0-0.9); MONOCYTES % (AUTO) 6.6 % (2-12); NEUTROPHILS # (AUTO) 4.4 X10'3 (1.8-7.7); NEUTROPHILS % (AUTO) 79.2 % (42-75); PLATELET COUNT 124 X10'3 (140-440); RED BLOOD COUNT 2.78 X10'6 (4.20-5.60); RED CELL DISTRIBUTION WIDTH 16.8 % (11.5-14.5); WHITE BLOOD COUNT 5.6 X10'3 (4.5-11.0)
[2019-03-22 06:00] VITALS: BP 122/88
[2019-03-22 06:04] LABS: ALANINE AMINOTRANSFERASE 40 U/L (12-78); ALBUMIN 2.9 G/DL (3.4-5.0); ALBUMIN/GLOBULIN RATIO 0.7 (1.1-1.5); ALKALINE PHOSPHATASE 61 IU/L (46-116); ANION GAP 11 (8-16); ASPARTATE AMINO TRANSFERASE 36 U/L (10-37); BILIRUBIN,TOTAL 0.3 MG/DL (0.1-1.0); BLOOD UREA NITROGEN 45 MG/DL (7-18); BUN/CREATININE RATIO 6.5 (6.6-38.0); CALCIUM 8.8 MG/DL (8.5-10.1); CHLORIDE 97 MMOL/L (99-107); CREATININE 6.89 MG/DL (0.40-0.90); GLUCOSE 97 MG/DL (70-104); MAGNESIUM 1.9 MG/DL (1.5-2.4); PHOSPHORUS 4.7 MG/DL (2.3-4.5); POTASSIUM 4.2 MMOL/L (3.5-5.1); SODIUM 136 MMOL/L (135-145); TOTAL CARBON DIOXIDE 27.7 MMOL/L (24-32); TOTAL PROTEIN 7.3 G/DL (6.4-8.2); eGFR 6 ML/MIN
--- NOTE | 2019-03-22 06:17 | NUR ---
Problems reprioritized. Patient report given, questions answered & plan of care reviewed with Ebony RN.
--- NOTE | 2019-03-22 06:32 | NUR ---
Patient in room PCU 3021. I have received report from JAMAAL Henry and had the opportunity to ask questions and assume patient care.
--- NOTE | 2019-03-22 06:54 | NUR ---
pt O2 saturation at 98% on 3.5 L NC. O2 turned down to 1L. Will continue to monitor.
[2019-03-22] MEDS ORDERED: epoetin 20,000 units/ml inj IV ONE (08:00)
[2019-03-22] MEDS ORDERED: normal saline 1000ml 250 ML IV PRN (08:00)
[2019-03-22] MEDS ORDERED: albumin (human) 25% 100ml IV 100 ML IV PRN (08:00)
[2019-03-22] MEDS ORDERED: heparin 1,000 units/ml 10ml inj HE ONE ×2 (08:00)
[2019-03-22] MEDS: heparin, porcine 5000 units/ml vial SQ SCH ×2 (08:42→20:35)
[2019-03-22] MEDS: gabapentin 100mg capsule PO SCH ×3 (08:43→20:34)
[2019-03-22] MEDS: metoprolol tartrate 25mg tablet PO SCH ×2 (08:43→20:33)
[2019-03-22] MEDS: amLODIPine 2.5mg tablet PO SCH ×2 (08:43→20:34)
[2019-03-22] MEDS: hydrALAZINE 25 MG tablet PO SCH ×2 (08:43→20:32)
[2019-03-22] MEDS: furosemide 40mg tablet PO SCH ×3 (08:43→20:34)
[2019-03-22] MEDS: folic acid/vitamin B complex w/vitamin C 0.8mg tablet PO SCH (08:43)
[2019-03-22] MEDS: cholecalciferol (vitamin D) 400 unit tablet PO SCH (08:43)
[2019-03-22] MEDS: lactobacillus rhamnosus 10,000 MMU CELLS/CAPSULE PO SCH ×2 (08:46→20:32)
[2019-03-22] MEDS: calcium acetate 667mg (PhosLO) capsule PO SCH ×3 (08:46→17:30)
[2019-03-22] MEDS: pantoprazole 40mg Tablet.DR PO SCH (08:46)
[2019-03-22 11:00] VITALS: BP 113/77
[2019-03-22] MEDS ORDERED: ipratropium/albuterol 3ml nebule NEB PRN (14:00)
--- NOTE | 2019-03-22 14:58 | NUR ---
Report given to back order clerk for lunch. No phone to give.
[2019-03-22 15:00] VITALS: BP 124/61
--- NOTE | 2019-03-22 15:30 | NUR ---
resumed care of pt
[2019-03-22 18:00] VITALS: BP 131/64
--- NOTE | 2019-03-22 18:18 | NUR ---
Patient in room PCU 3021. I have received report from JAMAAL Beck and had the opportunity to ask questions and assume patient care. Pt denies CP, dizziness, feel nauseated, and had a sore throat.
--- NOTE | 2019-03-22 18:19 | NUR ---
Problems reprioritized. Patient report given, questions answered & plan of care reviewed with JAMAAL Lam.
[2019-03-22] MEDS: ondansetron/PF 4mg/2ml inj IV PRN (20:43)
[2019-03-22] MEDS ORDERED: guaiFENesin/DM/phenylephrine syrup 120ml bottle PO PRN (21:15)
[2019-03-22] MEDS ORDERED: benzonatate 100mg capsule PO PRN (21:15)
[2019-03-22 22:00] VITALS: BP 111/55
[2019-03-23] MEDS: CefTRIAXone 2gm/D5W 50ml 50 ML IV SCH (01:41)
[2019-03-23] MEDS: guaiFENesin 200 MG/10 ML oral syrup UD cup PO PRN ×2 (01:42→20:15)
[2019-03-23 02:00] VITALS: BP 159/65
[2019-03-23 05:33] LABS: BASOPHILS % (AUTO) 0.6 % (0-1); EOSINOPHILS # (AUTO) 0.2 X10'3 (0-0.9); EOSINOPHILS % (AUTO) 3.8 % (0-6); HEMATOCRIT 29.2 % (35.0-45.0); HEMOGLOBIN 9.9 g/dl (12.0-16.0); LYMPHOCYTES # (AUTO) 0.6 X10'3 (1.1-4.8); LYMPHOCYTES % (AUTO) 12.4 % (21-51); MEAN CORPUSCULAR HEMOGLOBIN 33.1 PG (27.0-31.0); MEAN CORPUSCULAR VOLUME 97.4 FL (78-98); MEAN PLATELET VOLUME 9.9 FL (7.4-10.4); MONOCYTES # (AUTO) 0.4 X10'3 (0-0.9); MONOCYTES % (AUTO) 7.3 % (2-12); NEUTROPHILS # (AUTO) 3.9 X10'3 (1.8-7.7); NEUTROPHILS % (AUTO) 75.9 % (42-75); PLATELET COUNT 140 X10'3 (140-440); RED BLOOD COUNT 2.99 X10'6 (4.20-5.60); RED CELL DISTRIBUTION WIDTH 16.8 % (11.5-14.5); WHITE BLOOD COUNT 5.2 X10'3 (4.5-11.0)
[2019-03-23 05:55] LABS: ALANINE AMINOTRANSFERASE 37 U/L (12-78); ALBUMIN/GLOBULIN RATIO 0.6 (1.1-1.5); ALKALINE PHOSPHATASE 71 IU/L (46-116); ANION GAP 8 (8-16); ASPARTATE AMINO TRANSFERASE 24 U/L (10-37); BILIRUBIN,TOTAL 0.4 MG/DL (0.1-1.0); BLOOD UREA NITROGEN 32 MG/DL (7-18); BUN/CREATININE RATIO 6.2 (6.6-38.0); CALCIUM 9.2 MG/DL (8.5-10.1); CHLORIDE 97 MMOL/L (99-107); CREATININE 5.19 MG/DL (0.40-0.90); GLUCOSE 101 MG/DL (70-104); PHOSPHORUS 3.4 MG/DL (2.3-4.5); POTASSIUM 3.9 MMOL/L (3.5-5.1); SODIUM 135 MMOL/L (135-145); TOTAL CARBON DIOXIDE 30.2 MMOL/L (24-32); TOTAL PROTEIN 7.7 G/DL (6.4-8.2); eGFR 8 ML/MIN
[2019-03-23 06:00] VITALS: BP 111/60
--- NOTE | 2019-03-23 06:43 | NUR ---
Problems reprioritized. Patient report given, questions answered & plan of care reviewed with JAMAAL Wagner. Patient stable at shift change
--- NOTE | 2019-03-23 06:46 | NUR ---
Patient in room PCU 3021. I have received report from Genaro HINTON and had the opportunity to ask questions and assume patient care.
[2019-03-23] MEDS: metoprolol tartrate 25mg tablet PO SCH ×2 (08:09→20:13)
[2019-03-23] MEDS: gabapentin 100mg capsule PO SCH ×3 (08:09→20:14)
[2019-03-23] MEDS: hydrALAZINE 25 MG tablet PO SCH ×2 (08:09→20:13)
[2019-03-23] MEDS: amLODIPine 2.5mg tablet PO SCH ×2 (08:10→20:12)
[2019-03-23] MEDS: cholecalciferol (vitamin D) 400 unit tablet PO SCH (08:10)
[2019-03-23] MEDS: calcium acetate 667mg (PhosLO) capsule PO SCH ×3 (08:11→18:07)
[2019-03-23] MEDS: folic acid/vitamin B complex w/vitamin C 0.8mg tablet PO SCH (08:11)
[2019-03-23] MEDS: lactobacillus rhamnosus 10,000 MMU CELLS/CAPSULE PO SCH ×2 (08:11→20:12)
[2019-03-23] MEDS: furosemide 40mg tablet PO SCH ×3 (08:11→20:15)
[2019-03-23] MEDS: pantoprazole 40mg Tablet.DR PO SCH (08:12)
[2019-03-23] MEDS: heparin, porcine 5000 units/ml vial SQ SCH ×2 (08:14→20:15)
[2019-03-23] MEDS: benzocaine/menthol oral lozeng 1 EACH BOX MM PRN (08:14)
[2019-03-23 11:00] VITALS: BP 107/55
[2019-03-23] MEDS: azithromycin 250mg tablet PO SCH (12:47)
[2019-03-23 15:00] VITALS: BP 118/68
[2019-03-23 18:00] VITALS: BP 121/68
--- NOTE | 2019-03-23 18:52 | NUR ---
Problems reprioritized. Patient report given, questions answered & plan of care reviewed with Genaro HINTON.
--- NOTE | 2019-03-23 18:52 | NUR ---
Patient in room PCU 3021. I have received report from JAMAAL Ivey and had the opportunity to ask questions and assume patient care.
[2019-03-23 22:00] VITALS: BP 125/60
[2019-03-23] MEDS ORDERED: MESSAGE TO PHARMACY PO ONE (23:45)
[2019-03-23] MEDS ORDERED: insulin Lispro (HumaLOG) vial - multi-dose SQ SCH (23:45)
[2019-03-23] MEDS ORDERED: dextrose 50%-water 50ml dispensing syringe IV PRN ×2 (23:45)
[2019-03-23] MEDS ORDERED: glucagon, human recombinant 1mg kit SUBCUT PRN (23:45)
[2019-03-23] MEDS ORDERED: dextrose ORAL solution 15 GM/59 ML bottle PO PRN ×2 (23:45)
[2019-03-24] MEDS: benzocaine/menthol oral lozeng 1 EACH BOX MM PRN (00:18)
[2019-03-24] MEDS: CefTRIAXone 2gm/D5W 50ml 50 ML IV SCH (00:18)
[2019-03-24 02:00] VITALS: BP 129/63
[2019-03-24 06:00] VITALS: BP 119/60
--- NOTE | 2019-03-24 06:12 | NUR ---
Problems reprioritized. Patient report given, questions answered & plan of care reviewed with JAMAAL Ivey. Patient stable at shift change
[2019-03-24 06:20] LABS: BASOPHILS % (AUTO) 0.7 % (0-1); EOSINOPHILS # (AUTO) 0.4 X10'3 (0-0.9); HEMATOCRIT 29.3 % (35.0-45.0); LYMPHOCYTES % (AUTO) 18.9 % (21-51); MEAN CORPUSCULAR HEMOGLOBIN 33.3 PG (27.0-31.0); MEAN CORPUSCULAR HGB CONC 34.1 g/dL (33.0-36.5); MEAN CORPUSCULAR VOLUME 97.5 FL (78-98); MEAN PLATELET VOLUME 9.8 FL (7.4-10.4); MONOCYTES # (AUTO) 0.5 X10'3 (0-0.9); MONOCYTES % (AUTO) 8.8 % (2-12); NEUTROPHILS # (AUTO) 3.3 X10'3 (1.8-7.7); NEUTROPHILS % (AUTO) 64.6 % (42-75); PLATELET COUNT 168 X10'3 (140-440); RED BLOOD COUNT 3.01 X10'6 (4.20-5.60); RED CELL DISTRIBUTION WIDTH 16.4 % (11.5-14.5); WHITE BLOOD COUNT 5.1 X10'3 (4.5-11.0)
[2019-03-24 06:45] LABS: ALANINE AMINOTRANSFERASE 28 U/L (12-78); ALBUMIN 2.9 G/DL (3.4-5.0); ALBUMIN/GLOBULIN RATIO 0.6 (1.1-1.5); ALKALINE PHOSPHATASE 74 IU/L (46-116); ANION GAP 14 (8-16); ASPARTATE AMINO TRANSFERASE 19 U/L (10-37); BILIRUBIN,TOTAL 0.4 MG/DL (0.1-1.0); BLOOD UREA NITROGEN 48 MG/DL (7-18); BUN/CREATININE RATIO 6.9 (6.6-38.0); CALCIUM 9.3 MG/DL (8.5-10.1); CHLORIDE 95 MMOL/L (99-107); CREATININE 6.91 MG/DL (0.40-0.90); GLUCOSE 104 MG/DL (70-104); PHOSPHORUS 4.4 MG/DL (2.3-4.5); POTASSIUM 3.9 MMOL/L (3.5-5.1); SODIUM 136 MMOL/L (135-145); TOTAL CARBON DIOXIDE 27.5 MMOL/L (24-32); TOTAL PROTEIN 7.8 G/DL (6.4-8.2); eGFR 6 ML/MIN
[2019-03-24] MEDS: pantoprazole 40mg Tablet.DR PO SCH (07:42)
[2019-03-24] MEDS: calcium acetate 667mg (PhosLO) capsule PO SCH ×3 (07:42→17:37)
[2019-03-24] MEDS: folic acid/vitamin B complex w/vitamin C 0.8mg tablet PO SCH (07:42)
[2019-03-24] MEDS: gabapentin 100mg capsule PO SCH ×3 (07:42→20:50)
[2019-03-24] MEDS: lactobacillus rhamnosus 10,000 MMU CELLS/CAPSULE PO SCH ×2 (07:42→20:51)
[2019-03-24] MEDS: heparin, porcine 5000 units/ml vial SQ SCH ×2 (07:42→20:52)
[2019-03-24] MEDS: cholecalciferol (vitamin D) 400 unit tablet PO SCH (07:42)
[2019-03-24] MEDS: hydrALAZINE 25 MG tablet PO SCH ×2 (07:49→20:45)
[2019-03-24] MEDS: furosemide 40mg tablet PO SCH ×3 (07:49→20:51)
[2019-03-24] MEDS: metoprolol tartrate 25mg tablet PO SCH ×2 (07:50→20:50)
[2019-03-24] MEDS: amLODIPine 2.5mg tablet PO SCH ×2 (07:50→20:51)
[2019-03-24] MEDS ORDERED: heparin 1,000 units/ml 10ml inj HE ONE ×2 (08:00)
[2019-03-24] MEDS ORDERED: epoetin 20,000 units/ml inj IV ONE (08:00)
[2019-03-24] MEDS ORDERED: normal saline 1000ml 250 ML IV PRN (08:00)
[2019-03-24] MEDS ORDERED: albumin (human) 25% 100ml IV 100 ML IV PRN (08:00)
[2019-03-24] MEDS ORDERED: LIDOcaine 1% (10mg/ml) 2ml vial SQ ONE (08:00)
--- NOTE | 2019-03-24 10:44 | NUR ---
Initial: Pt admit with acute resp failure, pulmonary edema and PNA with hx ESRD on HD. Per MD note pt getting fluid removed from HD and pt completed abx for PNA. Pt on renal diet documented with average 75% PO intake likely meeting nutrient needs at this time with adequate protein to meet the demands of HD. LBM 03/22. No edema or wounds. No nutrition diagnosis at this time. Will continue to follow. Recommendations: 1) Continue renal diet 2) Monitor BG levels and need for the addition of CHO controlled diet 3) Monitor need for ONS/additional protein for HD 4) Routine Phos binder 5) Bowel care PRN 6) Wt per rx Addendum: 03/24/19 at [address] Amended: Links added.
[2019-03-24 11:00] VITALS: BP 115/67
--- NOTE | 2019-03-24 11:28 | NUR ---
Per HD nurse Mehnaz HINTON, received telephone orders from Zhou DANIEL to change potassium bath to 3. Assisted with placing order for Mehnaz into [facility] d/t Mehnaz having no code yet.
[2019-03-24] MEDS: guaiFENesin 200 MG/10 ML oral syrup UD cup PO PRN (14:09)
--- NOTE | 2019-03-24 14:12 | NUR ---
[id number] meds given late d/t hemodialysis procedure in progress at the time.
[2019-03-24 15:00] VITALS: BP 118/64
[2019-03-24 18:00] VITALS: BP 134/66
--- NOTE | 2019-03-24 18:31 | NUR ---
Problems reprioritized. Patient report given, questions answered & plan of care reviewed with Mena HINTON.
[2019-03-24] MEDS ORDERED: insulin glargine (Lantus) pen - multi-dose SQ SCH (21:00)
[2019-03-24 22:00] VITALS: BP 110/60
[2019-03-25] MEDS: CefTRIAXone 2gm/D5W 50ml 50 ML IV SCH (00:46)
[2019-03-25 02:00] VITALS: BP 116/62
[2019-03-25 06:00] VITALS: BP 125/66
--- NOTE | 2019-03-25 06:15 | NUR ---
Problems reprioritized. Patient report given, questions answered & plan of care reviewed withJAMAAL Luque.
[2019-03-25 06:28] LABS: BASOPHILS # (AUTO) 0.1 X10'3 (0-0.2); EOSINOPHILS # (AUTO) 0.4 X10'3 (0-0.9); EOSINOPHILS % (AUTO) 6.5 % (0-6); HEMATOCRIT 31.1 % (35.0-45.0); HEMOGLOBIN 10.8 g/dl (12.0-16.0); LYMPHOCYTES # (AUTO) 1.2 X10'3 (1.1-4.8); LYMPHOCYTES % (AUTO) 17.9 % (21-51); MEAN CORPUSCULAR HEMOGLOBIN 33.5 PG (27.0-31.0); MEAN CORPUSCULAR HGB CONC 34.8 g/dL (33.0-36.5); MEAN CORPUSCULAR VOLUME 96.4 FL (78-98); MEAN PLATELET VOLUME 9.5 FL (7.4-10.4); MONOCYTES # (AUTO) 0.5 X10'3 (0-0.9); MONOCYTES % (AUTO) 7.9 % (2-12); NEUTROPHILS # (AUTO) 4.4 X10'3 (1.8-7.7); NEUTROPHILS % (AUTO) 66.7 % (42-75); PLATELET COUNT 200 X10'3 (140-440); RED BLOOD COUNT 3.23 X10'6 (4.20-5.60); RED CELL DISTRIBUTION WIDTH 16.6 % (11.5-14.5); WHITE BLOOD COUNT 6.6 X10'3 (4.5-11.0)
[2019-03-25 06:39] LABS: ALANINE AMINOTRANSFERASE 30 U/L (12-78); ALBUMIN 3.2 G/DL (3.4-5.0); ALBUMIN/GLOBULIN RATIO 0.7 (1.1-1.5); ALKALINE PHOSPHATASE 85 IU/L (46-116); ANION GAP 10 (8-16); ASPARTATE AMINO TRANSFERASE 22 U/L (10-37); BILIRUBIN,TOTAL 0.4 MG/DL (0.1-1.0); BLOOD UREA NITROGEN 37 MG/DL (7-18); BUN/CREATININE RATIO 6.1 (6.6-38.0); CALCIUM 9.9 MG/DL (8.5-10.1); CHLORIDE 97 MMOL/L (99-107); GLUCOSE 99 MG/DL (70-104); MAGNESIUM 1.9 MG/DL (1.5-2.4); PHOSPHORUS 3.2 MG/DL (2.3-4.5); POTASSIUM 3.9 MMOL/L (3.5-5.1); SODIUM 134 MMOL/L (135-145); TOTAL CARBON DIOXIDE 26.8 MMOL/L (24-32); TOTAL PROTEIN 8.1 G/DL (6.4-8.2); eGFR 7 ML/MIN
[2019-03-25 07:54] VITALS: BP_SYST 125
[2019-03-25] MEDS: metoprolol tartrate 25mg tablet PO SCH (07:54)
[2019-03-25] MEDS: lactobacillus rhamnosus 10,000 MMU CELLS/CAPSULE PO SCH (07:54)
[2019-03-25] MEDS: hydrALAZINE 25 MG tablet PO SCH (07:55)
[2019-03-25] MEDS: pantoprazole 40mg Tablet.DR PO SCH (07:55)
[2019-03-25] MEDS: gabapentin 100mg capsule PO SCH ×2 (07:55→12:29)
[2019-03-25] MEDS: folic acid/vitamin B complex w/vitamin C 0.8mg tablet PO SCH (07:55)
[2019-03-25] MEDS: cholecalciferol (vitamin D) 400 unit tablet PO SCH (07:55)
[2019-03-25] MEDS: amLODIPine 2.5mg tablet PO SCH (07:55)
[2019-03-25] MEDS: furosemide 40mg tablet PO SCH ×2 (07:55→12:29)
[2019-03-25] MEDS: calcium acetate 667mg (PhosLO) capsule PO SCH ×2 (07:55→12:29)
[2019-03-25] MEDS: heparin, porcine 5000 units/ml vial SQ SCH (07:57)
[2019-03-25] MEDS: azithromycin 250mg tablet PO SCH (11:28)
[2019-03-25] MEDS ORDERED: AZI25OT PO (13:42)
--- NOTE | 2019-03-25 15:01 | NUR ---
Received orders for patient to discharge home, belongings gathered, telemetry removed, IV removed, patient educated on discharge instructions and new antibiotic medication, verbalized understanding of teaching, prescriptions called to [facility] per pt request. Patient stable at time of discharge.
--- NOTE | 2019-03-31 13:53 | NUR ---
Duplicate charges 03/24 for hemodialysis. Please disregard second entry. Only one dialysis treatment was performed on 03/24/19 Addendum: 03/31/19 at 1355 by Brooke Piper RN Amended: Links added.
--- NOTE | 2019-04-01 15:45 | NUR ---
Duplicate dialysis charges 03/24/19 Addendum: 04/01/19 at 1548 by Brooke Piper RN Amended: Links added.
== END 2019-03-25 14:50 | disposition home or self-care (01) | DRG 193 ==
LOC: ER 22:51 → ED HOLD 03-20 02:25 → PCU 3S 03-20 04:30
PROC: 5A1D70Z Performance of Urinary Filtration, Intermittent, Less than 6 Hours Per Day (ICD-10-PCS; 2019-03-20)
PROC: 5A09357 Assistance with Respiratory Ventilation, Less than 24 Consecutive Hours, Continuous Positive Airway Pressure (ICD-10-PCS; 2019-03-20)
PROC: 5A1D70Z Performance of Urinary Filtration, Intermittent, Less than 6 Hours Per Day (ICD-10-PCS; 2019-03-22)
PROC: 5A1D70Z Performance of Urinary Filtration, Intermittent, Less than 6 Hours Per Day (ICD-10-PCS; principal; 2019-03-24)
DX: J18.9 Pneumonia, unspecified organism (principal); N18.6 End stage renal disease; J81.0 Acute pulmonary edema; J96.01 Acute respiratory failure with hypoxia; I13.2 Hypertensive heart and chronic kidney disease with heart failure and with stage 5 chronic kidney disease, or end stage renal disease; E11.22 Type 2 diabetes mellitus with diabetic chronic kidney disease; K21.9 Gastro-esophageal reflux disease without esophagitis; R19.7 Diarrhea, unspecified; I25.10 Atherosclerotic heart disease of native coronary artery without angina pectoris; I50.9 Heart failure, unspecified; Z80.52 Family history of malignant neoplasm of bladder; Z99.2 Dependence on renal dialysis; Z79.899 Other long term (current) drug therapy
CPT/HCPCS: 36415; 36600; 71045; 80053; 82803; 82948; 83036; 83605; 83735; 83880; 84100; 84145; 84484; 85018; 85025; 85610; 85730; 87040; 87081; 87502; 87503; 93005; 93306; 94660; 94760; 96365; 96375; 96376; 97116; 97161; 97530; 99285; C9113; G0257; G0378; J0456; J0696; J0780; J1644; J1815; J1940; J2001; J2405; P9047; Q4081

== ENCOUNTER 2020-09-21 00:03 | Emergency (ER) | payer MEDICARE, OTHER ==
[~2020-09-21] VITALS: Ht 154.9 cm; Wt 60.0 kg
[~2020-09-21 00:03] MED LIST changes: -AMLO1CAP19 PO; +AMLO2.5T2 PO; -ATEN5POW3 PO; -CALC668T PO; +CHOL400T14 PO; +HYDR-4069 PO; +LANT1000 PO; +LOP25T PO; +[UNRECOGNIZED DRUG - CODE] PO
[2020-09-21 00:53] LABS: ALANINE AMINOTRANSFERASE 29 U/L (12-78); ALBUMIN 3.5 G/DL (3.4-5.0); ALBUMIN/GLOBULIN RATIO 0.8 (1.1-1.5); ANION GAP 15 (8-16); ASPARTATE AMINO TRANSFERASE 22 U/L (10-37); BILIRUBIN,TOTAL 0.4 MG/DL (0.1-1.0); BLOOD UREA NITROGEN 63 MG/DL (7-18); CALCIUM 8.4 MG/DL (8.5-10.1); CHLORIDE 99 MMOL/L (99-107); CREATININE 9.03 MG/DL (0.40-0.90); GLUCOSE 141 MG/DL (70-104); SODIUM 139 MMOL/L (135-145); TOTAL CARBON DIOXIDE 24.8 MMOL/L (24-32); TOTAL PROTEIN 7.8 G/DL (6.4-8.2); eGFR 4 ML/MIN
[2020-09-21 00:54] LABS: ALKALINE PHOSPHATASE 165 IU/L (46-116)
[2020-09-21 00:57] LABS: POTASSIUM 6.1 MMOL/L (3.5-5.1)
[2020-09-21 02:07] LABS: BASOPHILS # (AUTO) 0.1 X10'3 (0-0.2); EOSINOPHILS # (AUTO) 0.6 X10'3 (0-0.9); EOSINOPHILS % (AUTO) 7.1 % (0-6); HEMATOCRIT 36.4 % (35.0-45.0); HEMOGLOBIN 11.9 g/dl (12.0-16.0); LYMPHOCYTES # (AUTO) 0.8 X10'3 (1.1-4.8); LYMPHOCYTES % (AUTO) 9.3 % (21-51); MEAN CORPUSCULAR HEMOGLOBIN 34.2 PG (27.0-31.0); MEAN CORPUSCULAR HGB CONC 32.7 g/dL (33.0-36.5); MEAN CORPUSCULAR VOLUME 104.4 FL (78-98); MEAN PLATELET VOLUME 9.6 FL (7.4-10.4); MONOCYTES # (AUTO) 0.5 X10'3 (0-0.9); MONOCYTES % (AUTO) 6.2 % (2-12); NEUTROPHILS # (AUTO) 6.5 X10'3 (1.8-7.7); NEUTROPHILS % (AUTO) 76.4 % (42-75); PLATELET COUNT 127 X10'3 (140-440); RED BLOOD COUNT 3.49 X10'6 (4.20-5.60); RED CELL DISTRIBUTION WIDTH 17.4 % (11.5-14.5); WHITE BLOOD COUNT 8.5 X10'3 (4.5-11.0)
[2020-09-21 06:27] VITALS: BP 135/59
== END 2020-09-21 06:29 | disposition home or self-care (01) ==
LOC: ER 00:04
DX: R06.00 Dyspnea, unspecified (principal); R06.02 Shortness of breath; I50.9 Heart failure, unspecified; E11.22 Type 2 diabetes mellitus with diabetic chronic kidney disease; N18.6 End stage renal disease; Z87.81 Personal history of (healed) traumatic fracture; Z99.2 Dependence on renal dialysis; Z95.5 Presence of coronary angioplasty implant and graft; Z79.899 Other long term (current) drug therapy
CPT/HCPCS: 36415; 71045; 80053; 83880; 84484; 85025; 93005; 99285

== ENCOUNTER 2020-11-23 00:48 | Emergency (ER) | payer MEDICARE, OTHER ==
[~2020-11-23] VITALS: Ht 154.9 cm; Wt 55.0 kg
[~2020-11-23 00:48] MED LIST changes: -[UNRECOGNIZED DRUG - CODE] PO
[2020-11-23 02:17] LABS: BASOPHILS # (AUTO) 0.1 X10'3 (0-0.2); BASOPHILS % (AUTO) 0.9 % (0-1); EOSINOPHILS # (AUTO) 0.2 X10'3 (0-0.9); EOSINOPHILS % (AUTO) 1.6 % (0-6); HEMATOCRIT 32.1 % (35.0-45.0); HEMOGLOBIN 10.6 g/dl (12.0-16.0); LYMPHOCYTES # (AUTO) 0.8 X10'3 (1.1-4.8); LYMPHOCYTES % (AUTO) 5.7 % (21-51); MEAN CORPUSCULAR HEMOGLOBIN 34.4 PG (27.0-31.0); MEAN CORPUSCULAR VOLUME 104.5 FL (78-98); MONOCYTES # (AUTO) 0.5 X10'3 (0-0.9); MONOCYTES % (AUTO) 3.6 % (2-12); NEUTROPHILS # (AUTO) 12.2 X10'3 (1.8-7.7); NEUTROPHILS % (AUTO) 88.2 % (42-75); PLATELET COUNT 171 X10'3 (140-440); RED BLOOD COUNT 3.07 X10'6 (4.20-5.60); RED CELL DISTRIBUTION WIDTH 15.8 % (11.5-14.5); WHITE BLOOD COUNT 13.8 X10'3 (4.5-11.0)
[2020-11-23 02:21] LABS: ALBUMIN 3.8 G/DL (3.4-5.0); ANION GAP 18 (8-16); BLOOD UREA NITROGEN 58 MG/DL (7-18); BUN/CREATININE RATIO 6.7 (6.6-38.0); CALCIUM 8.3 MG/DL (8.5-10.1); CHLORIDE 100 MMOL/L (99-107); CREATININE 8.66 MG/DL (0.40-0.90); GLUCOSE 250 MG/DL (70-104); POTASSIUM 5.2 MMOL/L (3.5-5.1); SODIUM 142 MMOL/L (135-145); TOTAL CARBON DIOXIDE 24.2 MMOL/L (24-32); TROPONIN I < 0.04 NG/ML (0.0-0.05); eGFR 4 ML/MIN
[2020-11-23 03:02] VITALS: BP 134/72
== END 2020-11-23 03:21 | disposition home or self-care (01) ==
LOC: ER 00:48
DX: N18.6 End stage renal disease (principal); E11.22 Type 2 diabetes mellitus with diabetic chronic kidney disease; I50.9 Heart failure, unspecified; R06.02 Shortness of breath; R11.0 Nausea; Z99.2 Dependence on renal dialysis; Z98.890 Other specified postprocedural states; Z95.1 Presence of aortocoronary bypass graft; Z79.899 Other long term (current) drug therapy
CPT/HCPCS: 36415; 71045; 80048; 83605; 84484; 85025; 93005; 99285

== ENCOUNTER 2020-12-10 01:21 | Inpatient (IN) | payer MEDICARE, OTHER ==
[~2020-12-10] VITALS: Ht 152.4 cm; Wt 61.0 kg
[2020-12-10] MEDS ORDERED: nitroGLYCERIN 0.4mg SUBLingual tab SL ONE (01:32)
[2020-12-10 02:14] LABS: BASOPHILS # (AUTO) 0.1 X10'3 (0-0.2); BASOPHILS % (AUTO) 1.3 % (0-1); EOSINOPHILS # (AUTO) 0.3 X10'3 (0-0.9); EOSINOPHILS % (AUTO) 3.1 % (0-6); LYMPHOCYTES # (AUTO) 1.7 X10'3 (1.1-4.8); LYMPHOCYTES % (AUTO) 19.3 % (21-51); MEAN CORPUSCULAR HEMOGLOBIN 34.5 PG (27.0-31.0); MEAN CORPUSCULAR HGB CONC 32.3 g/dL (33.0-36.5); MEAN CORPUSCULAR VOLUME 106.9 FL (78-98); MEAN PLATELET VOLUME 9.1 FL (7.4-10.4); MONOCYTES # (AUTO) 0.7 X10'3 (0-0.9); MONOCYTES % (AUTO) 7.6 % (2-12); NEUTROPHILS % (AUTO) 68.7 % (42-75); PLATELET COUNT 226 X10'3 (140-440); RED BLOOD COUNT 3.18 X10'6 (4.20-5.60); WHITE BLOOD COUNT 8.7 X10'3 (4.5-11.0)
[2020-12-10 02:34] LABS: ALANINE AMINOTRANSFERASE 14 U/L (12-78); ALBUMIN 3.9 G/DL (3.4-5.0); ALBUMIN/GLOBULIN RATIO 0.8 (1.1-1.5); ALKALINE PHOSPHATASE 215 IU/L (46-116); ANION GAP 14 (8-16); ASPARTATE AMINO TRANSFERASE 16 U/L (10-37); BILIRUBIN,TOTAL 0.5 MG/DL (0.1-1.0); BLOOD UREA NITROGEN 55 MG/DL (7-18); BUN/CREATININE RATIO 7.3 (6.6-38.0); CALCIUM 8.2 MG/DL (8.5-10.1); CHLORIDE 97 MMOL/L (99-107); CREATININE 7.53 MG/DL (0.40-0.90); GLUCOSE 260 MG/DL (70-104); POTASSIUM 4.6 MMOL/L (3.5-5.1); SODIUM 139 MMOL/L (135-145); TOTAL CARBON DIOXIDE 28.4 MMOL/L (24-32); TOTAL PROTEIN 8.5 G/DL (6.4-8.2); eGFR 5 ML/MIN
[2020-12-10 02:36] LABS: TROPONIN I < 0.04 NG/ML (0.0-0.05)
[2020-12-10] MEDS ORDERED: acetaminophen 650mg rectal suppository RC PRN (05:15)
[2020-12-10] MEDS ORDERED: ondansetron/PF 4mg/2ml inj IV PRN (05:15)
[2020-12-10] MEDS ORDERED: diphenhydrAMINE 25mg capsule PO PRN (05:15)
[2020-12-10] MEDS ORDERED: diphenhydrAMINE 50 mg/ml inj IV PRN (05:15)
[2020-12-10] MEDS ORDERED: bisacodyl 10mg suppository rectal RC PRN (05:15)
[2020-12-10] MEDS ORDERED: HYDROmorphone inj. 0.5 MG/0.5 ML DISP.SYRIN IV PRN (05:15)
[2020-12-10] MEDS ORDERED: ondansetron 4mg rapidly disintigrating tab PO PRN (05:15)
[2020-12-10] MEDS ORDERED: magnesium hydroxide 30ml (MOM) UD suspension PO PRN (05:15)
[2020-12-10] MEDS ORDERED: morphine 2 MG/ML inj. syringe IV PRN ×2 (05:15)
[2020-12-10] MEDS ORDERED: acetaminophen 325mg tablet PO PRN (05:15)
[2020-12-10] MEDS ORDERED: HYDROcodone/acetaminophen 5mg/325mg tablet PO PRN (05:15)
[2020-12-10] MEDS ORDERED: HYDROcodone/acetaminophen 10/325mg tab PO PRN (05:15)
[2020-12-10] MEDS ORDERED: mag hydrox/Alum hydrox/simeth 30ml oral suspension PO PRN (05:15)
[2020-12-10 06:02] LABS: PARTIAL THROMBOPLASTIN TIME 26 SECONDS (22-32)
[2020-12-10] MEDS: pantoprazole 40mg Tablet.DR PO SCH (07:30)
[2020-12-10] MEDS: amLODIPine 5mg tablet PO SCH ×2 (08:00→20:32)
[2020-12-10] MEDS: docusate sod 100mg capsule PO SCH ×2 (08:00→20:00)
[2020-12-10] MEDS: LANTHANUM CARBONATE 1000 MG PO SCH ×3 (08:00→18:00)
[2020-12-10] MEDS: metoprolol tartrate 25mg tablet PO SCH ×2 (08:00→20:32)
[2020-12-10] MEDS: hydrALAZINE 25 MG tablet PO SCH ×2 (08:00→20:33)
[2020-12-10] MEDS: heparin, porcine 5000 units/ml vial SQ SCH ×2 (08:00→20:30)
[2020-12-10] MEDS ORDERED: gabapentin 100mg capsule PO SCH (08:00)
--- NOTE | 2020-12-10 08:17 | NUR ---
Patient in room ED 3. I have received report from WILLIAM RN and had the opportunity to ask questions and assume patient care.
[2020-12-10 09:00] VITALS: BP 129/58
[2020-12-10] MEDS ORDERED: LIDOcaine 1% (10mg/ml) 2ml vial SQ ONE (09:00)
[2020-12-10] MEDS ORDERED: normal saline 1000ml 250 ML IV PRN (09:00)
[2020-12-10] MEDS ORDERED: heparin 1,000 units/ml 10ml inj IV ONE (09:00)
[2020-12-10 11:00] VITALS: BP 104/56
[2020-12-10 15:00] VITALS: BP 120/58
[2020-12-10 18:00] VITALS: BP 122/49
--- NOTE | 2020-12-10 18:44 | NUR ---
Problems reprioritized. Patient report given, questions answered & plan of care reviewed with Farideh HINTON.
[2020-12-10] MEDS: gabapentin 100mg capsule PO SCH (20:31)
[2020-12-10] MEDS: acetaminophen 325mg tablet PO PRN (20:37)
[2020-12-10] MEDS ORDERED: temazepam 15mg capsule PO PRN (21:00)
[2020-12-10 22:00] VITALS: BP 109/49
[2020-12-11 02:00] VITALS: BP 115/42
[2020-12-11 06:00] VITALS: BP 117/44
[2020-12-11 06:09] LABS: BASOPHILS # (AUTO) 0.1 X10'3 (0-0.2); BASOPHILS % (AUTO) 1.1 % (0-1); EOSINOPHILS # (AUTO) 0.2 X10'3 (0-0.9); HEMATOCRIT 28.6 % (35.0-45.0); HEMOGLOBIN 9.4 g/dl (12.0-16.0); LYMPHOCYTES # (AUTO) 0.9 X10'3 (1.1-4.8); LYMPHOCYTES % (AUTO) 12.6 % (21-51); MEAN CORPUSCULAR HGB CONC 32.9 g/dL (33.0-36.5); MEAN CORPUSCULAR VOLUME 106.2 FL (78-98); MEAN PLATELET VOLUME 8.6 FL (7.4-10.4); MONOCYTES # (AUTO) 0.6 X10'3 (0-0.9); MONOCYTES % (AUTO) 8.1 % (2-12); NEUTROPHILS # (AUTO) 5.4 X10'3 (1.8-7.7); NEUTROPHILS % (AUTO) 75.2 % (42-75); PLATELET COUNT 173 X10'3 (140-440); RED BLOOD COUNT 2.69 X10'6 (4.20-5.60); RED CELL DISTRIBUTION WIDTH 16.2 % (11.5-14.5); WHITE BLOOD COUNT 7.1 X10'3 (4.5-11.0)
[2020-12-11 06:18] LABS: ALANINE AMINOTRANSFERASE 12 U/L (12-78); ALBUMIN 3.3 G/DL (3.4-5.0); ALBUMIN/GLOBULIN RATIO 0.8 (1.1-1.5); ALKALINE PHOSPHATASE 147 IU/L (46-116); ANION GAP 11 (8-16); ASPARTATE AMINO TRANSFERASE 12 U/L (10-37); BILIRUBIN,TOTAL 0.5 MG/DL (0.1-1.0); BLOOD UREA NITROGEN 30 MG/DL (7-18); BUN/CREATININE RATIO 6.5 (6.6-38.0); CALCIUM 8.6 MG/DL (8.5-10.1); CHLORIDE 99 MMOL/L (99-107); CREATININE 4.63 MG/DL (0.40-0.90); GLUCOSE 105 MG/DL (70-104); SODIUM 139 MMOL/L (135-145); TOTAL CARBON DIOXIDE 29.2 MMOL/L (24-32); TOTAL PROTEIN 7.5 G/DL (6.4-8.2); eGFR 9 ML/MIN
[2020-12-11] MEDS: pantoprazole 40mg Tablet.DR PO SCH (09:03)
[2020-12-11] MEDS: heparin, porcine 5000 units/ml vial SQ SCH ×2 (09:03→20:37)
[2020-12-11] MEDS: amLODIPine 5mg tablet PO SCH ×2 (09:04→20:37)
[2020-12-11] MEDS: docusate sod 100mg capsule PO SCH ×3 (09:04→20:35)
[2020-12-11] MEDS: metoprolol tartrate 25mg tablet PO SCH ×2 (09:04→20:36)
[2020-12-11] MEDS: hydrALAZINE 25 MG tablet PO SCH ×2 (09:06→20:36)
[2020-12-11 11:00] VITALS: BP 124/41
--- NOTE | 2020-12-11 11:04 | NUR ---
page regarding DC home med while admitted PAGER ID: [phone] MESSAGE: room 3020, Анна Enrique, patient has Fosrenol on their EMAR, pharmacy doesn't have this, patient cannot get it brought from home. can we DC it? thank you, Cassie HINTON [phone]
[2020-12-11] MEDS: atorvastatin 20mg tablet PO SCH (12:58)
[2020-12-11] MEDS: aspirin 81mg, enteric-coated 1 TAB TABLET.DR PO SCH (12:58)
--- NOTE | 2020-12-11 13:02 | NUR ---
PAGER ID: [phone] MESSAGE: room 3020A Анна Enrique, our pharmacy doesn't carry patients home med (Fosrenal), but we have the equivalent in different name (Renvela). can i put in orders for this med? Cassie HINTON, [phone]
[2020-12-11] MEDS: sevelamer carbonate 800mg tablet PO SCH ×2 (13:12→18:00)
[2020-12-11 15:00] VITALS: BP 114/43
[2020-12-11 18:00] VITALS: BP 114/47
[2020-12-11] MEDS: gabapentin 100mg capsule PO SCH (20:36)
[2020-12-11] MEDS: acetaminophen 325mg tablet PO PRN (20:38)
[2020-12-11 22:00] VITALS: BP 108/51
[2020-12-12 02:00] VITALS: BP 121/78
[2020-12-12 06:00] VITALS: BP 113/37
[2020-12-12 06:06] LABS: BASOPHILS # (AUTO) 0.1 X10'3 (0-0.2); BASOPHILS % (AUTO) 1.3 % (0-1); EOSINOPHILS # (AUTO) 0.2 X10'3 (0-0.9); EOSINOPHILS % (AUTO) 2.9 % (0-6); HEMATOCRIT 28.2 % (35.0-45.0); HEMOGLOBIN 9.3 g/dl (12.0-16.0); LYMPHOCYTES # (AUTO) 0.9 X10'3 (1.1-4.8); LYMPHOCYTES % (AUTO) 14.4 % (21-51); MEAN CORPUSCULAR HEMOGLOBIN 34.6 PG (27.0-31.0); MEAN CORPUSCULAR HGB CONC 32.9 g/dL (33.0-36.5); MEAN CORPUSCULAR VOLUME 105.1 FL (78-98); MEAN PLATELET VOLUME 8.6 FL (7.4-10.4); MONOCYTES # (AUTO) 0.5 X10'3 (0-0.9); MONOCYTES % (AUTO) 7.4 % (2-12); NEUTROPHILS # (AUTO) 4.7 X10'3 (1.8-7.7); PLATELET COUNT 175 X10'3 (140-440); RED BLOOD COUNT 2.68 X10'6 (4.20-5.60); RED CELL DISTRIBUTION WIDTH 16.3 % (11.5-14.5); WHITE BLOOD COUNT 6.3 X10'3 (4.5-11.0)
[2020-12-12 06:52] LABS: % IRON SATURATION 31 % (11-46); IRON 60 UG/DL (49-151); TOTAL IRON BINDING CAPACITY 193 UG/DL (259-388)
[2020-12-12 07:21] LABS: ALANINE AMINOTRANSFERASE 9 U/L (12-78); ALBUMIN 3.5 G/DL (3.4-5.0); ALBUMIN/GLOBULIN RATIO 0.8 (1.1-1.5); ALKALINE PHOSPHATASE 151 IU/L (46-116); ANION GAP 15 (8-16); ASPARTATE AMINO TRANSFERASE 12 U/L (10-37); BILIRUBIN,TOTAL 0.5 MG/DL (0.1-1.0); BLOOD UREA NITROGEN 46 MG/DL (7-18); BUN/CREATININE RATIO 7.3 (6.6-38.0); CALCIUM 8.7 MG/DL (8.5-10.1); CHLORIDE 97 MMOL/L (99-107); CREATININE 6.28 MG/DL (0.40-0.90); GLUCOSE 115 MG/DL (70-104); SODIUM 138 MMOL/L (135-145); TOTAL CARBON DIOXIDE 26.5 MMOL/L (24-32); TOTAL PROTEIN 7.7 G/DL (6.4-8.2); eGFR 6 ML/MIN
[2020-12-12 07:23] LABS: FERRITIN 1394 NG/ML (8-252)
[2020-12-12] MEDS ORDERED: LIDOcaine 1% (10mg/ml) 2ml vial SQ ONE (08:00)
[2020-12-12] MEDS: hydrALAZINE 25 MG tablet PO SCH (08:00)
[2020-12-12] MEDS: metoprolol tartrate 25mg tablet PO SCH (08:00)
[2020-12-12] MEDS: amLODIPine 5mg tablet PO SCH (08:00)
[2020-12-12] MEDS ORDERED: EPOETIN ALFA-EPBX 20,000 UNIT/ML 1 ML MDV IV ONE (08:00)
[2020-12-12] MEDS ORDERED: normal saline 1000ml 250 ML IV PRN (08:00)
[2020-12-12] MEDS ORDERED: heparin 1,000 units/ml 10ml inj IV ONE (08:00)
[2020-12-12] MEDS: sevelamer carbonate 800mg tablet PO SCH ×2 (08:18→12:30)
[2020-12-12] MEDS: docusate sod 100mg capsule PO SCH (08:18)
[2020-12-12] MEDS: heparin, porcine 5000 units/ml vial SQ SCH (08:18)
[2020-12-12] MEDS: atorvastatin 20mg tablet PO SCH (08:19)
[2020-12-12] MEDS: pantoprazole 40mg Tablet.DR PO SCH (08:19)
[2020-12-12] MEDS: aspirin 81mg, enteric-coated 1 TAB TABLET.DR PO SCH (08:19)
[2020-12-12 11:00] VITALS: BP 115/47
--- NOTE | 2020-12-12 15:35 | NUR ---
page sent regarding discharge orders PAGER ID: [phone] MESSAGE: room 3020, Анна Enrique, I acknowledged her discharge orders. can you please complete her discharge disposition and home med list, and any new meds she will be going home on? thank you, Cassie HINTON, [phone]
[2020-12-12] MEDS ORDERED: SEVE800T8 PO (15:38)
[2020-12-12] MEDS ORDERED: ASPI-1071 PO (15:38)
[2020-12-12] MEDS ORDERED: ATOR20TA66 PO (15:38)
== END 2020-12-12 16:20 | disposition home or self-care (01) | DRG 280 ==
LOC: ER 01:22 → ED HOLD 05:16 → UNDOADMIN 05:16 → ED HOLD 05:49 → PCU 3S 09:10
PROVIDERS: ADMIT Family Medicine; ATTEND Internal Medicine
PROC: 5A09357 Assistance with Respiratory Ventilation, Less than 24 Consecutive Hours, Continuous Positive Airway Pressure (ICD-10-PCS; principal; 2020-12-10)
PROC: 5A1D70Z Performance of Urinary Filtration, Intermittent, Less than 6 Hours Per Day (ICD-10-PCS; 2020-12-10)
PROC: 5A1D70Z Performance of Urinary Filtration, Intermittent, Less than 6 Hours Per Day (ICD-10-PCS; 2020-12-12)
DX: I13.2 Hypertensive heart and chronic kidney disease with heart failure and with stage 5 chronic kidney disease, or end stage renal disease (principal); I21.4 Non-ST elevation (NSTEMI) myocardial infarction; N18.6 End stage renal disease; I50.33 Acute on chronic diastolic (congestive) heart failure; J96.11 Chronic respiratory failure with hypoxia; D64.9 Anemia, unspecified; E11.22 Type 2 diabetes mellitus with diabetic chronic kidney disease; I05.2 Rheumatic mitral stenosis with insufficiency; K21.9 Gastro-esophageal reflux disease without esophagitis; I95.9 Hypotension, unspecified; Z20.822 Contact with and (suspected) exposure to COVID-19; I25.10 Atherosclerotic heart disease of native coronary artery without angina pectoris; I44.7 Left bundle-branch block, unspecified; Z99.2 Dependence on renal dialysis; Z79.899 Other long term (current) drug therapy; Z80.52 Family history of malignant neoplasm of bladder; Z87.891 Personal history of nicotine dependence; Z91.11 Patient's noncompliance with dietary regimen; Z99.81 Dependence on supplemental oxygen
CPT/HCPCS: 36415; 71045; 80053; 82607; 82728; 83540; 83550; 83605; 83735; 83880; 84100; 84145; 84484; 85025; 85610; 85730; 87040; 87081; 87635; 93005; 93306; 94660; 94760; 99291; C9803; G0257; G0378; J1644; Q4081

== ENCOUNTER 2020-12-24 02:32 | Emergency (ER) | payer MEDICARE, OTHER ==
[~2020-12-24] VITALS: Ht 154.9 cm; Wt 55.0 kg
[~2020-12-24 02:32] MED LIST changes: +ASPI-1071 PO; +ATOR20TA66 PO; -CHOL400T14 PO; +SEVE800T8 PO
[2020-12-24] MEDS ORDERED: dexamethasone sod phosphate 10mg/ml inj IV STA (02:46)
[2020-12-24 03:11] LABS: BASOPHILS # (AUTO) 0.1 X10'3 (0-0.2); EOSINOPHILS # (AUTO) 0.2 X10'3 (0-0.9); EOSINOPHILS % (AUTO) 1.9 % (0-6); HEMATOCRIT 26.1 % (35.0-45.0); HEMOGLOBIN 8.6 g/dl (12.0-16.0); LYMPHOCYTES % (AUTO) 10.9 % (21-51); MEAN CORPUSCULAR HEMOGLOBIN 35.5 PG (27.0-31.0); MEAN CORPUSCULAR HGB CONC 33.1 g/dL (33.0-36.5); MEAN CORPUSCULAR VOLUME 107.4 FL (78-98); MEAN PLATELET VOLUME 8.8 FL (7.4-10.4); MONOCYTES # (AUTO) 0.5 X10'3 (0-0.9); MONOCYTES % (AUTO) 5.6 % (2-12); NEUTROPHILS # (AUTO) 7.4 X10'3 (1.8-7.7); NEUTROPHILS % (AUTO) 80.6 % (42-75); PLATELET COUNT 186 X10'3 (140-440); RED BLOOD COUNT 2.43 X10'6 (4.20-5.60); RED CELL DISTRIBUTION WIDTH 15.4 % (11.5-14.5); WHITE BLOOD COUNT 9.2 X10'3 (4.5-11.0)
[2020-12-24 03:27] LABS: ALBUMIN 3.6 G/DL (3.4-5.0); ANION GAP 18 (8-16); BLOOD UREA NITROGEN 41 MG/DL (7-18); CALCIUM 8.8 MG/DL (8.5-10.1); CHLORIDE 98 MMOL/L (99-107); CREATININE 6.79 MG/DL (0.40-0.90); GLUCOSE 172 MG/DL (70-104); POTASSIUM 4.9 MMOL/L (3.5-5.1); SODIUM 141 MMOL/L (135-145); TOTAL CARBON DIOXIDE 25.5 MMOL/L (24-32); TROPONIN I < 0.04 NG/ML (0.0-0.05); eGFR 6 ML/MIN
[2020-12-24] MEDS ORDERED: iohexol 350MG/ML 100ml bottle IV ONE (04:09)
[2020-12-24 06:28] VITALS: BP 112/68
== END 2020-12-24 07:01 | disposition home or self-care (01) ==
LOC: ER 02:33
DX: J44.1 Chronic obstructive pulmonary disease with (acute) exacerbation (principal); J45.901 Unspecified asthma with (acute) exacerbation; N18.9 Chronic kidney disease, unspecified; I50.9 Heart failure, unspecified; Z79.899 Other long term (current) drug therapy
CPT/HCPCS: 36415; 71045; 71275; 80048; 84484; 85025; 87635; 93005; 96374; 99285; C9803; J1100; Q9967

== ENCOUNTER 2021-01-07 02:23 | Emergency (ER) | payer MEDICARE, OTHER ==
[~2021-01-07] VITALS: Ht 154.9 cm; Wt 55.5 kg
[~2021-01-07 02:23] MED LIST changes: +AMLO-93 PO; +CHOL400T8 PO; +FURO-149 PO; +OMEP40CA21 PO
[2021-01-07 02:31] VITALS: BP_DIAS 74
[2021-01-07] MEDS ORDERED: furosemide 40mg/4ml inj IV ONE (03:05)
[2021-01-07] MEDS ORDERED: metoprolol tartrate 1mg/ml inj IV ONE ×2 (03:05→04:25)
[2021-01-07 03:25] LABS: ALANINE AMINOTRANSFERASE 18 U/L (12-78); ALBUMIN 3.8 G/DL (3.4-5.0); ALBUMIN/GLOBULIN RATIO 0.9 (1.1-1.5); ALKALINE PHOSPHATASE 163 IU/L (46-116); ANION GAP 14 (8-16); ASPARTATE AMINO TRANSFERASE 15 U/L (10-37); BILIRUBIN,TOTAL 0.4 MG/DL (0.1-1.0); BLOOD UREA NITROGEN 44 MG/DL (7-18); BUN/CREATININE RATIO 6.5 (6.6-38.0); CALCIUM 8.9 MG/DL (8.5-10.1); CHLORIDE 97 MMOL/L (99-107); CREATININE 6.75 MG/DL (0.40-0.90); GLUCOSE 132 MG/DL (70-104); POTASSIUM 5.2 MMOL/L (3.5-5.1); SODIUM 139 MMOL/L (135-145); TOTAL CARBON DIOXIDE 28.3 MMOL/L (24-32); TOTAL PROTEIN 7.9 G/DL (6.4-8.2); eGFR 6 ML/MIN
[2021-01-07 03:28] LABS: BASOPHILS # (AUTO) 0.1 X10'3 (0-0.2); BASOPHILS % (AUTO) 1.2 % (0-1); EOSINOPHILS # (AUTO) 0.2 X10'3 (0-0.9); EOSINOPHILS % (AUTO) 1.8 % (0-6); HEMATOCRIT 27.8 % (35.0-45.0); HEMOGLOBIN 9.3 g/dl (12.0-16.0); LYMPHOCYTES # (AUTO) 0.7 X10'3 (1.1-4.8); LYMPHOCYTES % (AUTO) 8.4 % (21-51); MEAN CORPUSCULAR HEMOGLOBIN 35.7 PG (27.0-31.0); MEAN CORPUSCULAR HGB CONC 33.3 g/dL (33.0-36.5); MEAN PLATELET VOLUME 8.6 FL (7.4-10.4); MONOCYTES # (AUTO) 0.4 X10'3 (0-0.9); MONOCYTES % (AUTO) 4.7 % (2-12); NEUTROPHILS # (AUTO) 7.2 X10'3 (1.8-7.7); NEUTROPHILS % (AUTO) 83.9 % (42-75); PLATELET COUNT 207 X10'3 (140-440); RED CELL DISTRIBUTION WIDTH 16.9 % (11.5-14.5); WHITE BLOOD COUNT 8.6 X10'3 (4.5-11.0)
[2021-01-07 03:32] LABS: TROPONIN I < 0.04 NG/ML (0.0-0.05)
[2021-01-07 05:06] VITALS: BP_SYST 118
== END 2021-01-07 05:41 | disposition home or self-care (01) ==
LOC: ER 02:24
DX: R06.02 Shortness of breath (principal); I48.91 Unspecified atrial fibrillation; I13.2 Hypertensive heart and chronic kidney disease with heart failure and with stage 5 chronic kidney disease, or end stage renal disease; E11.22 Type 2 diabetes mellitus with diabetic chronic kidney disease; N18.6 End stage renal disease; Z99.2 Dependence on renal dialysis; Z98.890 Other specified postprocedural states; Z79.82 Long term (current) use of aspirin; Z79.899 Other long term (current) drug therapy
CPT/HCPCS: 36415; 71045; 80053; 83880; 84484; 85025; 93005; 96374; 96375; 96376; 99285; J1940; J3490

== ENCOUNTER 2021-01-21 09:17 | Emergency (ER) | payer MEDICARE, OTHER ==
[~2021-01-21] VITALS: Ht 154.9 cm; Wt 55.5 kg
[2021-01-21] MEDS ORDERED: metoprolol tartrate 50mg tablet PO ONE (09:35)
[2021-01-21] MEDS ORDERED: furosemide 10 MG/1 ML 10ml inj IV ONE (09:35)
[2021-01-21 09:59] LABS: BASOPHILS # (AUTO) 0.1 X10'3 (0-0.2); BASOPHILS % (AUTO) 1.3 % (0-1); EOSINOPHILS % (AUTO) 0.3 % (0-6); HEMATOCRIT 34.5 % (35.0-45.0); HEMOGLOBIN 11.2 g/dl (12.0-16.0); LYMPHOCYTES # (AUTO) 0.6 X10'3 (1.1-4.8); LYMPHOCYTES % (AUTO) 6.4 % (21-51); MEAN CORPUSCULAR HEMOGLOBIN 35.1 PG (27.0-31.0); MEAN CORPUSCULAR HGB CONC 32.6 g/dL (33.0-36.5); MEAN CORPUSCULAR VOLUME 107.9 FL (78-98); MEAN PLATELET VOLUME 8.5 FL (7.4-10.4); MONOCYTES # (AUTO) 0.5 X10'3 (0-0.9); MONOCYTES % (AUTO) 5.2 % (2-12); NEUTROPHILS # (AUTO) 8.5 X10'3 (1.8-7.7); NEUTROPHILS % (AUTO) 86.8 % (42-75); PLATELET COUNT 221 X10'3 (140-440); RED CELL DISTRIBUTION WIDTH 17.7 % (11.5-14.5); WHITE BLOOD COUNT 9.8 X10'3 (4.5-11.0)
[2021-01-21 10:42] LABS: ALANINE AMINOTRANSFERASE 19 U/L (12-78); ALBUMIN 3.9 G/DL (3.4-5.0); ALBUMIN/GLOBULIN RATIO 0.8 (1.1-1.5); ALKALINE PHOSPHATASE 109 IU/L (46-116); ANION GAP 20 (8-16); ASPARTATE AMINO TRANSFERASE 23 U/L (10-37); BILIRUBIN,TOTAL 0.7 MG/DL (0.1-1.0); BLOOD UREA NITROGEN 50 MG/DL (7-18); CALCIUM 9.6 MG/DL (8.5-10.1); CHLORIDE 95 MMOL/L (99-107); CREATININE 7.15 MG/DL (0.40-0.90); GLUCOSE 136 MG/DL (70-104); SODIUM 139 MMOL/L (135-145); TOTAL CARBON DIOXIDE 24.1 MMOL/L (24-32); TOTAL PROTEIN 8.5 G/DL (6.4-8.2); eGFR 5 ML/MIN
[2021-01-21 10:45] LABS: POTASSIUM 6.5 MMOL/L (3.5-5.1)
[2021-01-21] MEDS ORDERED: PATIROMER CALCIUM SORBITEX 8.4 GM POWD.PACK PO ONE ×2 (11:00→11:10)
[2021-01-21] MEDS ORDERED: albuterol 2.5 MG/3 ML nebule CONTNEB PRN (11:00)
[2021-01-21 11:25] VITALS: BP 149/88
--- NOTE | 2021-01-21 11:47 | NUR ---
1 HOUR ETA FOR [facility] TRANSPORT
== END 2021-01-21 13:18 | disposition home or self-care (01) ==
LOC: ER 09:17
DX: I48.20 Chronic atrial fibrillation, unspecified (principal); I13.2 Hypertensive heart and chronic kidney disease with heart failure and with stage 5 chronic kidney disease, or end stage renal disease; E11.22 Type 2 diabetes mellitus with diabetic chronic kidney disease; N18.6 End stage renal disease; R53.1 Weakness; E87.5 Hyperkalemia; J96.20 Acute and chronic respiratory failure, unspecified whether with hypoxia or hypercapnia; Z99.2 Dependence on renal dialysis; Z98.890 Other specified postprocedural states; Z79.82 Long term (current) use of aspirin; Z79.899 Other long term (current) drug therapy
CPT/HCPCS: 36415; 71045; 80053; 83880; 84484; 85025; 93005; 94640; 96374; 99285; J1940; 94760

== ENCOUNTER 2021-02-04 08:08 | Inpatient (IN) | payer MEDICARE, OTHER ==
[~2021-02-04] VITALS: Ht 154.9 cm; Wt 55.5 kg
[~2021-02-04 08:08] MED LIST changes: +AMLO-140 PO; -AMLO-93 PO
[2021-02-04] MEDS ORDERED: metoprolol tartrate 1mg/ml inj IV ONE ×2 (08:25→19:55)
[2021-02-04 08:38] LABS: BASOPHILS # (AUTO) 0.1 X10'3 (0-0.2); EOSINOPHILS % (AUTO) 0.1 % (0-6); HEMATOCRIT 34.1 % (35.0-45.0); LYMPHOCYTES # (AUTO) 0.6 X10'3 (1.1-4.8); LYMPHOCYTES % (AUTO) 5.1 % (21-51); MEAN CORPUSCULAR HGB CONC 32.4 g/dL (33.0-36.5); MEAN CORPUSCULAR VOLUME 105.2 FL (78-98); MEAN PLATELET VOLUME 9.1 FL (7.4-10.4); MONOCYTES # (AUTO) 0.7 X10'3 (0-0.9); MONOCYTES % (AUTO) 5.8 % (2-12); NEUTROPHILS # (AUTO) 10.1 X10'3 (1.8-7.7); PLATELET COUNT 191 X10'3 (140-440); RED BLOOD COUNT 3.24 X10'6 (4.20-5.60); RED CELL DISTRIBUTION WIDTH 17.7 % (11.5-14.5); WHITE BLOOD COUNT 11.4 X10'3 (4.5-11.0)
[2021-02-04 08:56] LABS: ALANINE AMINOTRANSFERASE 18 U/L (12-78); ALBUMIN 3.5 G/DL (3.4-5.0); ALBUMIN/GLOBULIN RATIO 0.8 (1.1-1.5); ALKALINE PHOSPHATASE 89 IU/L (46-116); ANION GAP 17 (8-16); ASPARTATE AMINO TRANSFERASE 21 U/L (10-37); BILIRUBIN,TOTAL 0.9 MG/DL (0.1-1.0); BLOOD UREA NITROGEN 47 MG/DL (7-18); BUN/CREATININE RATIO 6.6 (6.6-38.0); CALCIUM 9.9 MG/DL (8.5-10.1); CHLORIDE 98 MMOL/L (99-107); CREATININE 7.17 MG/DL (0.40-0.90); GLUCOSE 166 MG/DL (70-104); MAGNESIUM 2.4 MG/DL (1.5-2.4); SODIUM 139 MMOL/L (135-145); TOTAL CARBON DIOXIDE 23.9 MMOL/L (24-32); eGFR 5 ML/MIN
[2021-02-04 09:00] LABS: POTASSIUM 7.2 MMOL/L (3.5-5.1)
[2021-02-04] MEDS ORDERED: diltiazem 5mg/ml 5ml inj. IV ONE (09:00)
[2021-02-04] MEDS ORDERED: diltiazem-NS 100mg/100ml 100 ML IV SCH (09:15)
[2021-02-04] MEDS ORDERED: furosemide 10 MG/1 ML 10ml inj IV ONE (09:20)
[2021-02-04] MEDS ORDERED: PATIROMER CALCIUM SORBITEX 8.4 GM POWD.PACK PO SCH (09:20)
[2021-02-04] MEDS ORDERED: PATIROMER CALCIUM SORBITEX 8.4 GM POWD.PACK PO ONE (09:20)
[2021-02-04] MEDS ORDERED: EPOETIN ALFA-EPBX 20,000 UNIT/ML 1 ML MDV IV ONE (09:25)
[2021-02-04] MEDS ORDERED: normal saline 1000ml 250 ML IV PRN (09:25)
[2021-02-04] MEDS ORDERED: heparin 1,000 units/ml 10ml inj IV ONE (09:25)
[2021-02-04] MEDS ORDERED: LIDOcaine 1% (10mg/ml) 2ml vial SQ ONE (09:25)
[2021-02-04] MEDS: albuterol 2.5 MG/3 ML nebule CONTNEB PRN ×2 (10:34→10:35)
[2021-02-04] MEDS ORDERED: morphine 2 MG/ML inj. syringe IV PRN ×2 (12:00)
[2021-02-04] MEDS ORDERED: acetaminophen 650mg rectal suppository RC PRN (12:00)
[2021-02-04] MEDS ORDERED: diphenhydrAMINE 25mg capsule PO PRN (12:00)
[2021-02-04] MEDS ORDERED: acetaminophen 325mg tablet PO PRN ×2 (12:00)
[2021-02-04] MEDS ORDERED: magnesium hydroxide 30ml (MOM) UD suspension PO PRN (12:00)
[2021-02-04] MEDS ORDERED: HYDROcodone/acetaminophen 5mg/325mg tablet PO PRN (12:00)
[2021-02-04] MEDS ORDERED: HYDROcodone/acetaminophen 10/325mg tab PO PRN (12:00)
[2021-02-04] MEDS ORDERED: bisacodyl 10mg suppository rectal RC PRN (12:00)
[2021-02-04] MEDS ORDERED: mag hydrox/Alum hydrox/simeth 30ml oral suspension PO PRN (12:00)
[2021-02-04 12:31] LABS: HEMOGLOBIN A1C 5.9 % (4.5-6.2)
[2021-02-04] MEDS ORDERED: FURO80TA3 PO (13:03)
[2021-02-04] MEDS ORDERED: ATOR20TA66 PO (13:03)
[2021-02-04] MEDS ORDERED: ASPI-1397 PO (13:03)
[2021-02-04] MEDS ORDERED: SEVE800T8 PO (13:03)
[2021-02-04] MEDS ORDERED: METO50TA16 PO (13:03)
[2021-02-04] MEDS ORDERED: APIX2.5T PO (13:03)
[2021-02-04] MEDS ORDERED: OMEP-50 PO (13:09)
[2021-02-04] MEDS: ondansetron/PF 4mg/2ml inj IV PRN ×2 (13:35→19:16)
--- NOTE | 2021-02-04 13:55 | NUR ---
IV in R EJ accidently pulled out.
--- NOTE | 2021-02-04 14:00 | NUR ---
Report given to JAMAAL Orourke in PCU.
[2021-02-04] MEDS: metoprolol tartrate 50mg tablet PO SCH ×3 (15:22→21:32)
[2021-02-04] MEDS ORDERED: ipratropium/albuterol 3ml nebule NEB PRN (17:00)
[2021-02-04] MEDS ORDERED: digoxin 250mcg/ml 2ml ampule IV ONE ×2 (17:25→17:30)
--- NOTE | 2021-02-04 17:26 | NUR ---
PATIENT RECEIVING DIALYSIS. LAYING IN BED.
[2021-02-04] MEDS ORDERED: amiodarone 150mg/dext, iso-os 100 ML IV ONE (17:40)
[2021-02-04 18:00] VITALS: BP 97/70
[2021-02-04] MEDS: diltiazem-NS 100mg/100ml 100 ML IV SCH (18:00)
--- NOTE | 2021-02-04 19:30 | NUR ---
Patient in room PCU 3012. I have received report from Joey and had the opportunity to ask questions and assume patient care.
[2021-02-04] MEDS: sodium bicarbonate (8.4%) inj. 50 MEQ in dextrose 5%-water 1,000 ML IV SCH (19:50)
[2021-02-04] MEDS ORDERED: heparin, porcine 5000 units/ml vial SQ SCH (20:00)
[2021-02-04] MEDS: sevelamer carbonate 800mg tablet PO SCH (21:00)
[2021-02-04] MEDS: furosemide 40mg tablet PO SCH (21:30)
[2021-02-04] MEDS: docusate sod 100mg capsule PO SCH (21:32)
[2021-02-04] MEDS: apixaban 2.5mg tablet PO SCH (21:32)
[2021-02-04] MEDS: gabapentin 100mg capsule PO SCH (21:33)
[2021-02-04] MEDS: hydrALAZINE 25 MG tablet PO SCH (21:33)
[2021-02-04 22:00] VITALS: BP 134/99
[2021-02-04] MEDS: amiodarone/D5 360MG/200ML BAG 200 ML IV SCH (22:02)
[2021-02-05] VITALS (8 sets, daily range): BP systolic 108–147; BP diastolic 48–79
[2021-02-05] MEDS: ondansetron/PF 4mg/2ml inj IV PRN ×3 (01:13→21:19)
--- NOTE | 2021-02-05 02:30 | NUR ---
pt's systolic blood pressure fluctuated between 140's and 160's. notified charge nurse Elzbieta and was told to notify Dr. Avendano when systolic reaches >180.
[2021-02-05] MEDS ORDERED: ondansetron/PF 4mg/2ml inj IV ONE (03:05)
[2021-02-05] MEDS: amiodarone/D5 360MG/200ML BAG 200 ML IV SCH (04:25)
--- NOTE | 2021-02-05 04:39 | NUR ---
I called Dr. Avendano to address pt's persistent vomiting after zofran administration. Per Dr. Avendano, an additional 4mg of zofran iv given once and changed from 4 mg to 8mg Zofran IV PRN.
[2021-02-05] MEDS: sodium bicarbonate (8.4%) inj. 50 MEQ in dextrose 5%-water 1,000 ML IV SCH ×2 (06:20→13:11)
[2021-02-05 06:39] LABS: BASOPHILS % (AUTO) 0.2 % (0-1); EOSINOPHILS % (AUTO) 0.1 % (0-6); HEMATOCRIT 32.5 % (35.0-45.0); HEMOGLOBIN 10.6 g/dl (12.0-16.0); LYMPHOCYTES # (AUTO) 0.4 X10'3 (1.1-4.8); LYMPHOCYTES % (AUTO) 2.8 % (21-51); MEAN CORPUSCULAR HEMOGLOBIN 34.2 PG (27.0-31.0); MEAN CORPUSCULAR HGB CONC 32.7 g/dL (33.0-36.5); MEAN CORPUSCULAR VOLUME 104.5 FL (78-98); MEAN PLATELET VOLUME 9.3 FL (7.4-10.4); MONOCYTES # (AUTO) 0.6 X10'3 (0-0.9); MONOCYTES % (AUTO) 4.5 % (2-12); NEUTROPHILS % (AUTO) 92.4 % (42-75); PLATELET COUNT 161 X10'3 (140-440); RED BLOOD COUNT 3.11 X10'6 (4.20-5.60); RED CELL DISTRIBUTION WIDTH 17.3 % (11.5-14.5)
--- NOTE | 2021-02-05 07:00 | NUR ---
Patient in room PCU 3012. I have received report from JAMAAL Cobos and had the opportunity to ask questions and assume patient care.
--- NOTE | 2021-02-05 07:01 | NUR ---
Problems reprioritized. Patient report given, questions answered & plan of care reviewed with Cassie HINTON.
[2021-02-05 07:16] LABS: ALANINE AMINOTRANSFERASE 19 U/L (12-78); ALBUMIN 3.2 G/DL (3.4-5.0); ALBUMIN/GLOBULIN RATIO 0.8 (1.1-1.5); ALKALINE PHOSPHATASE 86 IU/L (46-116); ANION GAP 13 (8-16); ASPARTATE AMINO TRANSFERASE 24 U/L (10-37); BILIRUBIN,TOTAL 0.7 MG/DL (0.1-1.0); BLOOD UREA NITROGEN 27 MG/DL (7-18); CALCIUM 9.9 MG/DL (8.5-10.1); CHLORIDE 96 MMOL/L (99-107); CHOL/HDL RATIO 2.3 (0.00-4.99); CHOLESTEROL 95 MG/DL (0-200); CREATININE 3.83 MG/DL (0.40-0.90); GLUCOSE 236 MG/DL (70-104); HDL CHOLESTEROL 42 MG/DL (35-60); LDL CHOLESTEROL 34 MG/DL (50-100); MAGNESIUM 2.2 MG/DL (1.5-2.4); PHOSPHORUS 4.4 MG/DL (2.3-4.5); POTASSIUM 4.7 MMOL/L (3.5-5.1); SODIUM 139 MMOL/L (135-145); TOTAL PROTEIN 7.3 G/DL (6.4-8.2); TRIGLYCERIDES 73 MG/DL (20-135); eGFR 11 ML/MIN
[2021-02-05] MEDS: metoprolol tartrate 50mg tablet PO SCH ×2 (09:04→20:31)
[2021-02-05] MEDS: hydrALAZINE 25 MG tablet PO SCH (09:05)
[2021-02-05] MEDS: docusate sod 100mg capsule PO SCH ×3 (09:05→20:29)
[2021-02-05] MEDS: sevelamer carbonate 800mg tablet PO SCH ×3 (09:05→20:30)
[2021-02-05] MEDS: gabapentin 100mg capsule PO SCH ×3 (09:06→20:30)
[2021-02-05] MEDS: aspirin 81mg, enteric-coated 1 TAB TABLET.DR PO SCH (09:06)
[2021-02-05] MEDS: atorvastatin 20mg tablet PO SCH (09:07)
[2021-02-05] MEDS: furosemide 40mg tablet PO SCH ×2 (09:07→20:30)
[2021-02-05] MEDS: pantoprazole 40mg Tablet.DR PO SCH (09:07)
[2021-02-05] MEDS: apixaban 2.5mg tablet PO SCH ×2 (09:07→20:29)
[2021-02-05] MEDS: diltiazem-NS 100mg/100ml 100 ML IV SCH (10:21)
--- NOTE | 2021-02-05 12:08 | NUR ---
page regarding nausea PAGER ID: [phone] MESSAGE: room 3012C Анна Enrique, patient has severe nausea, currently zofran 8mg Q6Hr is ineffective. Can you recommend anything else for nausea? Thank you, Cassie HINTON [phone]
[2021-02-05] MEDS ORDERED: metoprolol tartrate 25mg tablet PO ONE (12:30)
[2021-02-05] MEDS ORDERED: hydrALAZINE 25 MG tablet PO PRN (12:35)
[2021-02-05] MEDS: amiodarone 200mg tablet PO SCH ×2 (13:11→20:29)
[2021-02-05 16:03] LABS: HBSAG SCREEN Negative (Negative)
--- NOTE | 2021-02-05 18:00 | NUR ---
Patient in room PCU 3012. I have received report from JAMAAL Matthews and had the opportunity to ask questions and assume patient care.
--- NOTE | 2021-02-05 18:55 | NUR ---
I have received report from JAMAAL Matthews and had the opportunity to ask questions and assume patient care.
--- NOTE | 2021-02-05 19:16 | NUR ---
Problems reprioritized. Patient report given, questions answered & plan of care reviewed with Shahid HINTON.
[2021-02-05] MEDS ORDERED: LORazepam 2 mg/ml vial IV PRN ×2 (21:50→21:55)
[2021-02-06] VITALS (9 sets, daily range): BP systolic 103–166; BP diastolic 34–72
--- NOTE | 2021-02-06 04:44 | NUR ---
Notified on 02/05/21 at 0041, regarding pt nausea not relieved by PRN Zofran. Order received for alternative.
[2021-02-06 06:11] LABS: BASOPHILS % (AUTO) 0.4 % (0-1); EOSINOPHILS % (AUTO) 0.2 % (0-6); HEMOGLOBIN 10.4 g/dl (12.0-16.0); LYMPHOCYTES # (AUTO) 0.7 X10'3 (1.1-4.8); LYMPHOCYTES % (AUTO) 6.3 % (21-51); MEAN CORPUSCULAR HEMOGLOBIN 34.8 PG (27.0-31.0); MEAN CORPUSCULAR HGB CONC 33.7 g/dL (33.0-36.5); MEAN CORPUSCULAR VOLUME 103.5 FL (78-98); MEAN PLATELET VOLUME 8.6 FL (7.4-10.4); MONOCYTES # (AUTO) 0.9 X10'3 (0-0.9); MONOCYTES % (AUTO) 8.5 % (2-12); NEUTROPHILS # (AUTO) 8.9 X10'3 (1.8-7.7); NEUTROPHILS % (AUTO) 84.6 % (42-75); PLATELET COUNT 189 X10'3 (140-440); RED CELL DISTRIBUTION WIDTH 17.6 % (11.5-14.5); WHITE BLOOD COUNT 10.5 X10'3 (4.5-11.0)
--- NOTE | 2021-02-06 06:14 | NUR ---
I agree with JAMAAL Dominguez oriente documentation, assessments, and report given to JAMAAL Matthews
--- NOTE | 2021-02-06 06:15 | NUR ---
Problems reprioritized. Patient report given, questions answered & plan of care reviewed with JAMAAL Matthews.
[2021-02-06 06:21] LABS: ALANINE AMINOTRANSFERASE 14 U/L (12-78); ALBUMIN 2.8 G/DL (3.4-5.0); ALBUMIN/GLOBULIN RATIO 0.7 (1.1-1.5); ALKALINE PHOSPHATASE 76 IU/L (46-116); ANION GAP 11 (8-16); ASPARTATE AMINO TRANSFERASE 15 U/L (10-37); BILIRUBIN,TOTAL 0.5 MG/DL (0.1-1.0); BLOOD UREA NITROGEN 40 MG/DL (7-18); BUN/CREATININE RATIO 7.9 (6.6-38.0); CALCIUM 9.3 MG/DL (8.5-10.1); CHLORIDE 96 MMOL/L (99-107); CREATININE 5.08 MG/DL (0.40-0.90); GLUCOSE 125 MG/DL (70-104); MAGNESIUM 2.3 MG/DL (1.5-2.4); PHOSPHORUS 4.3 MG/DL (2.3-4.5); POTASSIUM 4.9 MMOL/L (3.5-5.1); SODIUM 135 MMOL/L (135-145); TOTAL CARBON DIOXIDE 28.2 MMOL/L (24-32); TOTAL PROTEIN 6.6 G/DL (6.4-8.2); eGFR 8 ML/MIN
--- NOTE | 2021-02-06 06:44 | NUR ---
Patient in room PCU 3012. I have received report from Shahid RN/Angelica RN and had the opportunity to ask questions and assume patient care.
[2021-02-06] MEDS: diltiazem-NS 100mg/100ml 100 ML IV SCH (06:45)
[2021-02-06] MEDS ORDERED: normal saline 1000ml 250 ML IV PRN (08:00)
[2021-02-06] MEDS ORDERED: LIDOcaine 1% (10mg/ml) 2ml vial SQ ONE (08:00)
[2021-02-06] MEDS ORDERED: EPOETIN ALFA-EPBX 20,000 UNIT/ML 1 ML MDV IV ONE (08:00)
[2021-02-06] MEDS ORDERED: heparin 1,000 units/ml 10ml inj IV ONE (08:00)
[2021-02-06] MEDS: furosemide 40mg tablet PO SCH ×2 (08:30→20:19)
[2021-02-06] MEDS: sevelamer carbonate 800mg tablet PO SCH ×3 (08:30→20:19)
[2021-02-06] MEDS: apixaban 2.5mg tablet PO SCH ×2 (08:30→20:19)
[2021-02-06] MEDS: docusate sod 100mg capsule PO SCH ×2 (08:30→20:19)
[2021-02-06] MEDS: gabapentin 100mg capsule PO SCH ×3 (08:30→20:19)
[2021-02-06] MEDS: pantoprazole 40mg Tablet.DR PO SCH (08:30)
[2021-02-06] MEDS: metoprolol tartrate 50mg tablet PO SCH ×2 (08:31→20:20)
[2021-02-06] MEDS: aspirin 81mg, enteric-coated 1 TAB TABLET.DR PO SCH (08:31)
[2021-02-06] MEDS: amiodarone 200mg tablet PO SCH ×2 (08:31→20:19)
[2021-02-06] MEDS: atorvastatin 20mg tablet PO SCH (08:31)
[2021-02-06] MEDS ORDERED: morphine 10mg/ml inj. IV ONE (11:10)
[2021-02-06] MEDS ORDERED: MIDAZolam 1mg/ml 10ml vial IV ONE (11:10)
--- NOTE | 2021-02-06 11:47 | NUR ---
paged respiratory room 3019V Анна Enrique, patient scheduled for cardioversion with Dr Renae today 02/06 at 1330. Thank You
--- NOTE | 2021-02-06 11:51 | NUR ---
geovanny RODRIGUEZ nurse for assist with cardioversion vitals room 3012C has a scheduled cardioversion today 02/[address] Renae. If anyone is available to assist with pre/intra/post procedure vitals we would greatly appreciate the help. Thank You
--- NOTE | 2021-02-06 18:00 | NUR ---
Patient in room PCU 3012. I have received report fromJAMAAL Matthews and had the opportunity to ask questions and assume patient care.
--- NOTE | 2021-02-06 19:50 | NUR ---
I have received report from JAMAAL Matthews and had the opportunity to ask questions and assume patient care.
[2021-02-07 02:00] VITALS: BP 109/52
--- NOTE | 2021-02-07 06:00 | NUR ---
Problems reprioritized. Patient report given, questions answered & plan of care reviewed with JAMAAL Rascon.
[2021-02-07 06:19] LABS: BASOPHILS % (AUTO) 0.7 % (0-1); EOSINOPHILS % (AUTO) 0.3 % (0-6); HEMOGLOBIN 10.1 g/dl (12.0-16.0); LYMPHOCYTES # (AUTO) 0.6 X10'3 (1.1-4.8); LYMPHOCYTES % (AUTO) 8.8 % (21-51); MEAN CORPUSCULAR HEMOGLOBIN 34.4 PG (27.0-31.0); MEAN CORPUSCULAR HGB CONC 32.6 g/dL (33.0-36.5); MEAN CORPUSCULAR VOLUME 105.6 FL (78-98); MEAN PLATELET VOLUME 8.8 FL (7.4-10.4); MONOCYTES # (AUTO) 0.9 X10'3 (0-0.9); MONOCYTES % (AUTO) 12.6 % (2-12); NEUTROPHILS # (AUTO) 5.5 X10'3 (1.8-7.7); NEUTROPHILS % (AUTO) 77.6 % (42-75); PLATELET COUNT 168 X10'3 (140-440); RED BLOOD COUNT 2.93 X10'6 (4.20-5.60); RED CELL DISTRIBUTION WIDTH 17.5 % (11.5-14.5); WHITE BLOOD COUNT 7.1 X10'3 (4.5-11.0)
--- NOTE | 2021-02-07 06:21 | NUR ---
I agree with Angelica RN assessments, documentation, and report given to JAMAAL Mast
[2021-02-07 06:32] LABS: ALANINE AMINOTRANSFERASE 13 U/L (12-78); ALBUMIN 2.8 G/DL (3.4-5.0); ALBUMIN/GLOBULIN RATIO 0.7 (1.1-1.5); ALKALINE PHOSPHATASE 74 IU/L (46-116); ANION GAP 8 (8-16); ASPARTATE AMINO TRANSFERASE 16 U/L (10-37); BILIRUBIN,TOTAL 0.5 MG/DL (0.1-1.0); BLOOD UREA NITROGEN 22 MG/DL (7-18); BUN/CREATININE RATIO 5.9 (6.6-38.0); CALCIUM 9.1 MG/DL (8.5-10.1); CHLORIDE 104 MMOL/L (99-107); CREATININE 3.74 MG/DL (0.40-0.90); GLUCOSE 99 MG/DL (70-104); MAGNESIUM 2.2 MG/DL (1.5-2.4); PHOSPHORUS 3.7 MG/DL (2.3-4.5); POTASSIUM 4.5 MMOL/L (3.5-5.1); SODIUM 141 MMOL/L (135-145); TOTAL CARBON DIOXIDE 29.3 MMOL/L (24-32); TOTAL PROTEIN 6.7 G/DL (6.4-8.2); eGFR 12 ML/MIN
[2021-02-07 07:21] VITALS: BP 119/52
[2021-02-07] MEDS: aspirin 81mg, enteric-coated 1 TAB TABLET.DR PO SCH (09:21)
[2021-02-07] MEDS: amiodarone 200mg tablet PO SCH (09:22)
[2021-02-07] MEDS: atorvastatin 20mg tablet PO SCH (09:22)
[2021-02-07] MEDS: gabapentin 100mg capsule PO SCH ×2 (09:22→13:26)
[2021-02-07] MEDS: sevelamer carbonate 800mg tablet PO SCH ×2 (09:25→13:25)
[2021-02-07] MEDS: docusate sod 100mg capsule PO SCH (09:25)
[2021-02-07] MEDS: apixaban 2.5mg tablet PO SCH (09:26)
[2021-02-07] MEDS: furosemide 40mg tablet PO SCH (09:26)
[2021-02-07] MEDS: pantoprazole 40mg Tablet.DR PO SCH (09:26)
[2021-02-07] MEDS ORDERED: ALBU8.5H17 INH (09:45)
[2021-02-07] MEDS ORDERED: AMIO200T67 PO (09:45)
[2021-02-07] MEDS ORDERED: METO50TA16 PO (09:45)
[2021-02-07 11:00] VITALS: BP 138/48
--- NOTE | 2021-02-07 13:00 | NUR ---
Patient discharged on paper, waiting on a ride.
--- NOTE | 2021-02-07 15:11 | NUR ---
Patient educated on all next doses to take for her home medications and her new medication. 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 Patient states that she doesn't need her O2 for trip home. Patient aware to make follow up appointments with Dr. Gomez, Dr. Watters and her own PCP, all highlighted on discharge papers. Patient is A&Ox4, VSS. All belongings with patient. Patients ride is on way to pick her up currently.
[2021-02-07] MEDS ORDERED: metoprolol tartrate 50mg tablet PO SCH (20:00)
== END 2021-02-07 15:43 | disposition home or self-care (01) | DRG 291 ==
LOC: ER 08:09 → ED HOLD 12:10 → PCU 3S 14:35
PROVIDERS: ADMIT Family Medicine; ATTEND Family Medicine
PROC: 5A1D70Z Performance of Urinary Filtration, Intermittent, Less than 6 Hours Per Day (ICD-10-PCS; principal; 2021-02-04)
PROC: 5A1D70Z Performance of Urinary Filtration, Intermittent, Less than 6 Hours Per Day (ICD-10-PCS; 2021-02-06)
PROC: 5A2204Z Restoration of Cardiac Rhythm, Single (ICD-10-PCS; 2021-02-06)
DX: I13.2 Hypertensive heart and chronic kidney disease with heart failure and with stage 5 chronic kidney disease, or end stage renal disease (principal); N18.6 End stage renal disease; J96.20 Acute and chronic respiratory failure, unspecified whether with hypoxia or hypercapnia; I50.33 Acute on chronic diastolic (congestive) heart failure; I48.20 Chronic atrial fibrillation, unspecified; Z66 Do not resuscitate; I25.10 Atherosclerotic heart disease of native coronary artery without angina pectoris; I08.1 Rheumatic disorders of both mitral and tricuspid valves; D64.9 Anemia, unspecified; E11.22 Type 2 diabetes mellitus with diabetic chronic kidney disease; E78.5 Hyperlipidemia, unspecified; E87.5 Hyperkalemia; E11.40 Type 2 diabetes mellitus with diabetic neuropathy, unspecified; Z20.822 Contact with and (suspected) exposure to COVID-19; K21.9 Gastro-esophageal reflux disease without esophagitis; Z87.891 Personal history of nicotine dependence; Z80.52 Family history of malignant neoplasm of bladder; Z79.01 Long term (current) use of anticoagulants; Z99.2 Dependence on renal dialysis; Z99.81 Dependence on supplemental oxygen; Z79.899 Other long term (current) drug therapy; Z82.49 Family history of ischemic heart disease and other diseases of the circulatory system
CPT/HCPCS: 36415; 71045; 80053; 80061; 80162; 83036; 83735; 83880; 84100; 84132; 84443; 84484; 85025; 87340; 87635; 93005; 94640; 94760; 94799; 97116; 97161; 97530; 99291; A7015; C9803; G0257; G0378; J1160; J1940; J2250; J2270; J2405; J3490; Q4081

== ENCOUNTER 2021-03-29 18:34 | Inpatient (IN) | payer MEDICARE, OTHER ==
[~2021-03-29] VITALS: Ht 154.9 cm; Wt 55.5 kg
[~2021-03-29 18:34] MED LIST changes: +ALBU8.5H17 INH; +AMIO200T27 PO; -AMLO-140 PO; -AMLO2.5T2 PO; -ASPI-1071 PO; -CHOL400T8 PO; -FOLI0.8T7 PO; -FURO-149 PO; +FURO80TA3 PO; -FURO80TA87 PO; -LANT1000 PO; -LOP25T PO; +METO50TA16 PO; -OMEP20TA5 PO; -OMEP40CA21 PO; +PANT40TA54 PO; +SUCR1TAB34 PO
[2021-03-29 19:24] LABS: HEMOGLOBIN 9.5 g/dl (12.0-16.0)
[2021-03-29 19:26] LABS: BASOPHILS % (AUTO) 0.6 % (0-1); EOSINOPHILS # (AUTO) 0.2 X10'3 (0-0.9); EOSINOPHILS % (AUTO) 2.1 % (0-6); HEMATOCRIT 29.5 % (35.0-45.0); LYMPHOCYTES # (AUTO) 0.7 X10'3 (1.1-4.8); LYMPHOCYTES % (AUTO) 9.1 % (21-51); MEAN CORPUSCULAR HEMOGLOBIN 31.4 PG (27.0-31.0); MEAN CORPUSCULAR HGB CONC 32.2 g/dL (33.0-36.5); MEAN CORPUSCULAR VOLUME 97.7 FL (78-98); MEAN PLATELET VOLUME 8.2 FL (7.4-10.4); MONOCYTES # (AUTO) 0.4 X10'3 (0-0.9); MONOCYTES % (AUTO) 5.7 % (2-12); NEUTROPHILS # (AUTO) 6.4 X10'3 (1.8-7.7); NEUTROPHILS % (AUTO) 82.5 % (42-75); PLATELET COUNT 216 X10'3 (140-440); RED BLOOD COUNT 3.02 X10'6 (4.20-5.60); RED CELL DISTRIBUTION WIDTH 24.9 % (11.5-14.5); WHITE BLOOD COUNT 7.7 X10'3 (4.5-11.0)
[2021-03-29 19:29] LABS: ALANINE AMINOTRANSFERASE 12 U/L (12-78); ALBUMIN 2.8 G/DL (3.4-5.0); ALBUMIN/GLOBULIN RATIO 0.6 (1.1-1.5); ALKALINE PHOSPHATASE 106 IU/L (46-116); ANION GAP 10 (8-16); ASPARTATE AMINO TRANSFERASE 15 U/L (10-37); BILIRUBIN,TOTAL 0.5 MG/DL (0.1-1.0); BLOOD UREA NITROGEN 30 MG/DL (7-18); BUN/CREATININE RATIO 5.7 (6.6-38.0); CALCIUM 10.2 MG/DL (8.5-10.1); CHLORIDE 97 MMOL/L (99-107); CREATININE 5.24 MG/DL (0.40-0.90); GLUCOSE 145 MG/DL (70-104); POTASSIUM 4.2 MMOL/L (3.5-5.1); SODIUM 143 MMOL/L (135-145); TOTAL PROTEIN 7.5 G/DL (6.4-8.2); eGFR 8 ML/MIN
--- NOTE | 2021-03-29 19:44 | NUR ---
DR WAGNER AT BEDSIDE DOING U/S EXAM
[2021-03-29] MEDS ORDERED: furosemide 10 MG/1 ML 10ml inj IV ONE (20:35)
[2021-03-29 21:08] LABS: ANISOCYTOSIS 3+; PLATELET ESTIMATE NORMAL; POLYCHROMASIA 1+
[2021-03-29 21:09] LABS: ELLIPTOCYTES FEW; HYPOCHROMASIA 1+; LARGE PLATELETS FEW; SCHISTOCYTES FEW; TEAR DROP CELLS FEW
[2021-03-29] MEDS: calcium carbonate 500mg chew tablet PO SCH (21:55)
--- NOTE | 2021-03-29 21:55 | NUR ---
PT C/O "INDIGESTION." DENIES C/P. DR WAGNER NOTIFIED, TUMS OK. PT REPORTS "EATING RICH FOOD FOR [place], AND I TAKE TUMS ALL THE TIME AT HOME."
[2021-03-29] MEDS ORDERED: ondansetron/PF 4mg/2ml inj IV PRN (22:45)
[2021-03-29] MEDS ORDERED: magnesium hydroxide 30ml (MOM) UD suspension PO PRN (22:45)
[2021-03-29] MEDS ORDERED: mag hydrox/Alum hydrox/simeth 30ml oral suspension PO PRN (22:45)
[2021-03-29] MEDS ORDERED: acetaminophen 325mg tablet PO PRN (22:45)
--- NOTE | 2021-03-29 23:50 | NUR ---
pt states is feeling anxious and feel slike could breathe better and sleep if she could relax. contacted dr parra and recieved verbal order for 0.5mg ativan iv once.
[2021-03-29] MEDS ORDERED: DOXE4VIA IV (23:58)
[2021-03-29] MEDS ORDERED: OMEP40CA21 PO (23:58)
[2021-03-29] MEDS ORDERED: CINA60TA PO ×2 (23:58)
[2021-03-29] MEDS ORDERED: EPOE200015 IV (23:58)
[2021-03-29] MEDS ORDERED: APIX2.5T PO (23:58)
[2021-03-29] MEDS ORDERED: FOLI0.8T7 PO (23:58)
[2021-03-29] MEDS ORDERED: ASPI81TA52 PO (23:58)
[2021-03-29] MEDS ORDERED: LOP12.5T PO (23:58)
[2021-03-29] MEDS ORDERED: LANT1000 PO (23:58)
[2021-03-30] MEDS ORDERED: LORazepam 2 mg/ml vial IV ONE
--- NOTE | 2021-03-30 03:06 | NUR ---
PT PLACED ON HOSPITAL BED FROM [facility]. NO S/S OF DISTRESS.
[2021-03-30 03:16] LABS: BASOPHILS # (AUTO) 0.1 X10'3 (0-0.2); BASOPHILS % (AUTO) 0.9 % (0-1); EOSINOPHILS % (AUTO) 0.4 % (0-6); HEMATOCRIT 29.9 % (35.0-45.0); HEMOGLOBIN 9.8 g/dl (12.0-16.0); LYMPHOCYTES # (AUTO) 0.4 X10'3 (1.1-4.8); LYMPHOCYTES % (AUTO) 4.6 % (21-51); MEAN CORPUSCULAR HEMOGLOBIN 31.9 PG (27.0-31.0); MEAN CORPUSCULAR HGB CONC 32.7 g/dL (33.0-36.5); MEAN CORPUSCULAR VOLUME 97.4 FL (78-98); MEAN PLATELET VOLUME 8.7 FL (7.4-10.4); MONOCYTES # (AUTO) 0.5 X10'3 (0-0.9); MONOCYTES % (AUTO) 4.8 % (2-12); NEUTROPHILS # (AUTO) 8.6 X10'3 (1.8-7.7); NEUTROPHILS % (AUTO) 89.3 % (42-75); PLATELET COUNT 230 X10'3 (140-440); RED BLOOD COUNT 3.07 X10'6 (4.20-5.60); RED CELL DISTRIBUTION WIDTH 24.6 % (11.5-14.5); WHITE BLOOD COUNT 9.7 X10'3 (4.5-11.0)
[2021-03-30 03:32] LABS: ALANINE AMINOTRANSFERASE 10 U/L (12-78); ALBUMIN 2.7 G/DL (3.4-5.0); ALBUMIN/GLOBULIN RATIO 0.6 (1.1-1.5); ALKALINE PHOSPHATASE 103 IU/L (46-116); ANION GAP 10 (8-16); ASPARTATE AMINO TRANSFERASE 13 U/L (10-37); BILIRUBIN,TOTAL 0.5 MG/DL (0.1-1.0); BLOOD UREA NITROGEN 37 MG/DL (7-18); BUN/CREATININE RATIO 6.6 (6.6-38.0); CALCIUM 10.4 MG/DL (8.5-10.1); CHLORIDE 98 MMOL/L (99-107); CREATININE 5.61 MG/DL (0.40-0.90); GLUCOSE 156 MG/DL (70-104); POTASSIUM 5.5 MMOL/L (3.5-5.1); SODIUM 139 MMOL/L (135-145); TOTAL CARBON DIOXIDE 30.8 MMOL/L (24-32); TOTAL PROTEIN 7.3 G/DL (6.4-8.2); eGFR 7 ML/MIN
[2021-03-30] MEDS: LANTHANUM CARBONATE 1000 MG PO SCH ×2 (07:30→12:30)
[2021-03-30] MEDS ORDERED: pantoprazole 40mg Tablet.DR PO SCH (07:30)
[2021-03-30] MEDS: calcium carbonate 500mg chew tablet PO SCH ×2 (07:59→12:30)
[2021-03-30] MEDS ORDERED: docusate sod 100mg capsule PO SCH (08:00)
[2021-03-30] MEDS ORDERED: folic acid/vitamin B complex w/vitamin C 0.8mg tablet PO SCH (08:00)
[2021-03-30] MEDS ORDERED: cinacalcet 30mg tablet PO SCH ×3 (08:00→18:00)
[2021-03-30] MEDS ORDERED: atorvastatin 20mg tablet PO SCH (08:00)
[2021-03-30] MEDS ORDERED: metoprolol tartrate 50mg tablet PO SCH (08:00)
[2021-03-30] MEDS ORDERED: gabapentin 100mg capsule PO SCH ×2 (08:00→21:00)
[2021-03-30] MEDS ORDERED: hydrALAZINE 25 MG tablet PO SCH (08:00)
[2021-03-30] MEDS ORDERED: furosemide 40mg tablet PO SCH (08:00)
[2021-03-30 08:06] VITALS: BP 162/83
[2021-03-30] MEDS ORDERED: normal saline 1000ml 250 ML IV PRN (08:55)
[2021-03-30] MEDS ORDERED: heparin 1,000unit/ml 10ml vial 10 ML IV ONE (08:55)
[2021-03-30] MEDS ORDERED: heparin 1,000 units/ml 10ml inj IV ONE (08:55)
--- NOTE | 2021-03-30 16:45 | NUR ---
Pt Dc to home with daughter, pt A & O x4 and in no apparent distress. pt had her dialysis and feels 90% better, states she feels good going home. Pt verbalizes understanding of all DC orders and will follow up with her normal dialysis schedule. Pt wheeled to the front where her daughter took her home.
[2021-03-31] MEDS ORDERED: DOXERCALCIFEROL IV SCH (08:00)
[2021-04-03] MEDS ORDERED: cinacalcet 30mg tablet PO SCH ×2 (12:00→18:00)
== END 2021-03-30 16:45 | disposition home or self-care (01) | DRG 640 ==
LOC: ER 18:35 → ED HOLD 22:47 → MED 3N 03-30 08:55
PROVIDERS: ADMIT Internal Medicine; ATTEND Family Medicine
PROC: 5A1D70Z Performance of Urinary Filtration, Intermittent, Less than 6 Hours Per Day (ICD-10-PCS; principal; 2021-03-30)
DX: E87.5 Hyperkalemia (principal); N18.6 End stage renal disease; I13.2 Hypertensive heart and chronic kidney disease with heart failure and with stage 5 chronic kidney disease, or end stage renal disease; I48.20 Chronic atrial fibrillation, unspecified; Z20.822 Contact with and (suspected) exposure to COVID-19; E11.22 Type 2 diabetes mellitus with diabetic chronic kidney disease; I35.0 Nonrheumatic aortic (valve) stenosis; I50.9 Heart failure, unspecified; J44.9 Chronic obstructive pulmonary disease, unspecified; Z79.01 Long term (current) use of anticoagulants; Z80.52 Family history of malignant neoplasm of bladder; Z99.2 Dependence on renal dialysis; Z79.899 Other long term (current) drug therapy; Z79.82 Long term (current) use of aspirin
CPT/HCPCS: 36415; 71045; 80053; 83880; 84484; 85008; 85025; 87635; 90935; 93005; 96374; 99285; C9803; G0257; G0378; J0604; J1940; J2060

== ENCOUNTER 2021-05-05 11:28 | Emergency (ER) | payer MEDICARE, OTHER ==
[~2021-05-05] VITALS: Ht 156.2 cm; Wt 55.5 kg
[~2021-05-05 11:28] MED LIST changes: -ALBU8.5H17 INH; -AMIO200T27 PO; +APIX2.5T PO; +ASPI81TA52 PO; +CINA60TA PO; +DOXE4VIA IV; +EPOE200015 IV; +FOLI0.8T7 PO; +LANT1000 PO; +LOP12.5T PO; -METO50TA16 PO; +OMEP40CA21 PO; -PANT40TA54 PO; -SEVE800T8 PO; -SUCR1TAB34 PO
[2021-05-05] MEDS ORDERED: furosemide 10 MG/1 ML 10ml inj IV ONE (11:55)
[2021-05-05 11:57] LABS: BASOPHILS # (AUTO) 0.2 X10'3 (0-0.2); BASOPHILS % (AUTO) 1.9 % (0-1); EOSINOPHILS # (AUTO) 0.1 X10'3 (0-0.9); EOSINOPHILS % (AUTO) 0.7 % (0-6); HEMATOCRIT 27.2 % (35.0-45.0); HEMOGLOBIN 8.7 g/dl (12.0-16.0); LYMPHOCYTES # (AUTO) 0.4 X10'3 (1.1-4.8); MEAN CORPUSCULAR HEMOGLOBIN 33.3 PG (27.0-31.0); MEAN CORPUSCULAR HGB CONC 31.8 g/dL (33.0-36.5); MEAN CORPUSCULAR VOLUME 104.8 FL (78-98); MEAN PLATELET VOLUME 8.5 FL (7.4-10.4); MONOCYTES # (AUTO) 0.5 X10'3 (0-0.9); MONOCYTES % (AUTO) 6.2 % (2-12); NEUTROPHILS # (AUTO) 7.3 X10'3 (1.8-7.7); NEUTROPHILS % (AUTO) 86.2 % (42-75); PLATELET COUNT 258 X10'3 (140-440); RED CELL DISTRIBUTION WIDTH 22.4 % (11.5-14.5); WHITE BLOOD COUNT 8.5 X10'3 (4.5-11.0)
[2021-05-05 12:16] LABS: ALANINE AMINOTRANSFERASE 15 U/L (12-78); ALBUMIN 3.4 G/DL (3.4-5.0); ALBUMIN/GLOBULIN RATIO 0.7 (1.1-1.5); ALKALINE PHOSPHATASE 76 IU/L (46-116); ANION GAP 8 (8-16); ASPARTATE AMINO TRANSFERASE 17 U/L (10-37); BILIRUBIN,TOTAL 0.6 MG/DL (0.1-1.0); BLOOD UREA NITROGEN 29 MG/DL (7-18); BUN/CREATININE RATIO 5.7 (6.6-38.0); CALCIUM 9.5 MG/DL (8.5-10.1); CHLORIDE 100 MMOL/L (99-107); CREATININE 5.05 MG/DL (0.40-0.90); GLUCOSE 172 MG/DL (70-104); POTASSIUM 5.2 MMOL/L (3.5-5.1); SODIUM 139 MMOL/L (135-145); TOTAL CARBON DIOXIDE 31.2 MMOL/L (24-32); eGFR 8 ML/MIN
[2021-05-05] MEDS ORDERED: AMLO-140 PO (13:43)
[2021-05-05 13:45] VITALS: BP 149/67
== END 2021-05-05 13:48 | disposition home or self-care (01) ==
LOC: ER 11:29
DX: R06.89 Other abnormalities of breathing (principal); Z20.822 Contact with and (suspected) exposure to COVID-19; I48.91 Unspecified atrial fibrillation; E11.22 Type 2 diabetes mellitus with diabetic chronic kidney disease; I12.0 Hypertensive chronic kidney disease with stage 5 chronic kidney disease or end stage renal disease; N18.6 End stage renal disease; I11.0 Hypertensive heart disease with heart failure; I50.9 Heart failure, unspecified; Z87.81 Personal history of (healed) traumatic fracture; Z99.2 Dependence on renal dialysis; Z95.5 Presence of coronary angioplasty implant and graft; Z79.82 Long term (current) use of aspirin; Z79.899 Other long term (current) drug therapy
CPT/HCPCS: 36415; 71045; 80053; 83880; 84484; 85025; 87635; 93005; 96374; 99285; C9803; J1940

== ENCOUNTER 2021-05-13 10:30 | Emergency (ER) | payer MEDICARE, OTHER ==
[~2021-05-13] VITALS: Ht 154.9 cm; Wt 55.5 kg
[~2021-05-13 10:30] MED LIST changes: +AMLO-140 PO
[2021-05-13 11:28] LABS: BASOPHILS # (AUTO) 0.1 X10'3 (0-0.2); BASOPHILS % (AUTO) 1.4 % (0-1); EOSINOPHILS % (AUTO) 0.5 % (0-6); HEMATOCRIT 28.3 % (35.0-45.0); LYMPHOCYTES # (AUTO) 0.3 X10'3 (1.1-4.8); LYMPHOCYTES % (AUTO) 3.4 % (21-51); MEAN CORPUSCULAR HEMOGLOBIN 33.8 PG (27.0-31.0); MEAN CORPUSCULAR HGB CONC 31.9 g/dL (33.0-36.5); MEAN CORPUSCULAR VOLUME 105.8 FL (78-98); MEAN PLATELET VOLUME 9.6 FL (7.4-10.4); MONOCYTES # (AUTO) 0.5 X10'3 (0-0.9); MONOCYTES % (AUTO) 6.6 % (2-12); NEUTROPHILS # (AUTO) 7.2 X10'3 (1.8-7.7); NEUTROPHILS % (AUTO) 88.1 % (42-75); PLATELET COUNT 183 X10'3 (140-440); RED BLOOD COUNT 2.67 X10'6 (4.20-5.60); WHITE BLOOD COUNT 8.2 X10'3 (4.5-11.0)
--- NOTE | 2021-05-13 11:44 | NUR ---
DR. WEST AT BEDSIDE, NEW EKG. NO CHEST PAIN, JUST CHANGES ON RHYTHM.
[2021-05-13 12:00] LABS: ALANINE AMINOTRANSFERASE 17 U/L (12-78); ALBUMIN 3.6 G/DL (3.4-5.0); ALBUMIN/GLOBULIN RATIO 0.8 (1.1-1.5); ALKALINE PHOSPHATASE 86 IU/L (46-116); ANION GAP 11 (8-16); ASPARTATE AMINO TRANSFERASE 21 U/L (10-37); BILIRUBIN,TOTAL 0.7 MG/DL (0.1-1.0); BLOOD UREA NITROGEN 36 MG/DL (7-18); BUN/CREATININE RATIO 6.1 (6.6-38.0); CALCIUM 9.4 MG/DL (8.5-10.1); CHLORIDE 99 MMOL/L (99-107); CREATININE 5.95 MG/DL (0.40-0.90); GLUCOSE 138 MG/DL (70-104); SODIUM 137 MMOL/L (135-145); eGFR 7 ML/MIN
[2021-05-13 12:02] LABS: POTASSIUM 6.2 MMOL/L (3.5-5.1)
[2021-05-13] MEDS ORDERED: insulin regular, human 10 units/0.1 ml syringe IV ONE (12:05)
[2021-05-13] MEDS ORDERED: calcium chloride 100 MG/1 ML inj IV ONE (12:05)
[2021-05-13] MEDS ORDERED: dextrose 50%-water 50ml dispensing syringe IV ONE (12:05)
[2021-05-13 13:35] VITALS: BP 189/68
--- NOTE | 2021-05-13 13:35 | NUR ---
EMS AT BEDSIDE TO TRANSPORT PT TO DIALYSIS.
== END 2021-05-13 13:48 | disposition home or self-care (01) ==
LOC: ER 10:31
DX: E11.22 Type 2 diabetes mellitus with diabetic chronic kidney disease (principal); I12.0 Hypertensive chronic kidney disease with stage 5 chronic kidney disease or end stage renal disease; N18.6 End stage renal disease; E87.70 Fluid overload, unspecified; I48.91 Unspecified atrial fibrillation; E87.5 Hyperkalemia; I11.0 Hypertensive heart disease with heart failure; I50.9 Heart failure, unspecified; Z87.81 Personal history of (healed) traumatic fracture; Z99.2 Dependence on renal dialysis; Z79.82 Long term (current) use of aspirin; Z79.2 Long term (current) use of antibiotics; Z79.899 Other long term (current) drug therapy
CPT/HCPCS: 36415; 71045; 80053; 83880; 84145; 84484; 85025; 93005; 96374; 96375; 99285; J1815; J3490; 96365

== ENCOUNTER 2021-05-19 20:11 | Emergency (ER) | payer MEDICARE, OTHER ==
[~2021-05-19] VITALS: Ht 154.9 cm; Wt 55.5 kg
[2021-05-19] MEDS ORDERED: SOTROVIMAB 500mg injection 500 MG in normal saline 100ml IV soln 100 ML IV ONE (21:25)
[2021-05-19 21:31] LABS: BASOPHILS % (AUTO) 0.9 % (0-1); EOSINOPHILS % (AUTO) 0.1 % (0-6); HEMATOCRIT 28.5 % (35.0-45.0); HEMOGLOBIN 9.1 g/dl (12.0-16.0); LYMPHOCYTES # (AUTO) 0.3 X10'3 (1.1-4.8); LYMPHOCYTES % (AUTO) 5.6 % (21-51); MEAN CORPUSCULAR HEMOGLOBIN 32.5 PG (27.0-31.0); MEAN CORPUSCULAR VOLUME 101.6 FL (78-98); MEAN PLATELET VOLUME 9.6 FL (7.4-10.4); MONOCYTES # (AUTO) 0.3 X10'3 (0-0.9); NEUTROPHILS # (AUTO) 4.1 X10'3 (1.8-7.7); NEUTROPHILS % (AUTO) 87.4 % (42-75); PLATELET COUNT 131 X10'3 (140-440); RED CELL DISTRIBUTION WIDTH 20.6 % (11.5-14.5); WHITE BLOOD COUNT 4.7 X10'3 (4.5-11.0)
[2021-05-19 21:36] LABS: ALANINE AMINOTRANSFERASE 13 U/L (12-78); ALBUMIN 2.9 G/DL (3.4-5.0); ALBUMIN/GLOBULIN RATIO 0.6 (1.1-1.5); ANION GAP 11 (8-16); ASPARTATE AMINO TRANSFERASE 20 U/L (10-37); BILIRUBIN,TOTAL 1.2 MG/DL (0.1-1.0); BLOOD UREA NITROGEN 38 MG/DL (7-18); CALCIUM 9.1 MG/DL (8.5-10.1); CHLORIDE 95 MMOL/L (99-107); CREATININE 5.42 MG/DL (0.40-0.90); GLUCOSE 111 MG/DL (70-104); MAGNESIUM 1.7 MG/DL (1.5-2.4); POTASSIUM 4.9 MMOL/L (3.5-5.1); SODIUM 136 MMOL/L (135-145); TOTAL CARBON DIOXIDE 29.9 MMOL/L (24-32); TOTAL PROTEIN 7.4 G/DL (6.4-8.2); eGFR 8 ML/MIN
[2021-05-19 21:59] LABS: ANISOCYTOSIS 3+; PLATELET ESTIMATE DECREASED; POLYCHROMASIA FEW
[2021-05-19 22:00] LABS: TEAR DROP CELLS FEW
[2021-05-19 23:51] VITALS: BP 145/78
[2021-05-20] MEDS ORDERED: AMIO200T61 PO (11:18)
[2021-05-20] MEDS ORDERED: METO50TA16 PO (11:18)
[2021-05-20] MEDS ORDERED: PANT40TA54 PO (11:18)
== END 2021-05-19 23:53 | disposition home or self-care (01) ==
LOC: ER 20:11
DX: U07.1 COVID-19 (principal); R06.02 Shortness of breath; I48.91 Unspecified atrial fibrillation; I11.0 Hypertensive heart disease with heart failure; I50.9 Heart failure, unspecified; E11.22 Type 2 diabetes mellitus with diabetic chronic kidney disease; I12.0 Hypertensive chronic kidney disease with stage 5 chronic kidney disease or end stage renal disease; N18.6 End stage renal disease; Z79.82 Long term (current) use of aspirin; Z79.899 Other long term (current) drug therapy; Z99.2 Dependence on renal dialysis; Z95.5 Presence of coronary angioplasty implant and graft
CPT/HCPCS: 36415; 71045; 80053; 83735; 83880; 84484; 85008; 85025; 93005; 99285; J3490; M0247; Q0247

== ENCOUNTER 2021-05-20 06:48 | Inpatient (IN) | payer MEDICARE, OTHER ==
[~2021-05-20] VITALS: Ht 154.9 cm; Wt 55.5 kg
[2021-05-20] MEDS ORDERED: acetaminophen 325mg tablet PO ONE (07:00)
[2021-05-20] MEDS ORDERED: EPOETIN ALFA-EPBX 20,000 UNIT/ML 1 ML MDV IV ONE (08:25)
[2021-05-20] MEDS ORDERED: albumin (human) 25% 100ml IV 100 ML IV PRN (08:25)
[2021-05-20 09:05] LABS: HEMATOCRIT 33.7 % (35.0-45.0); HEMOGLOBIN 10.9 g/dl (12.0-16.0); MEAN CORPUSCULAR HEMOGLOBIN 32.8 PG (27.0-31.0); MEAN CORPUSCULAR HGB CONC 32.4 g/dL (33.0-36.5); MEAN CORPUSCULAR VOLUME 100.9 FL (78-98); MEAN PLATELET VOLUME 10.7 FL (7.4-10.4); PLATELET COUNT 183 X10'3 (140-440); RED BLOOD COUNT 3.34 X10'6 (4.20-5.60); RED CELL DISTRIBUTION WIDTH 20.5 % (11.5-14.5); WHITE BLOOD COUNT 7.3 X10'3 (4.5-11.0)
[2021-05-20] MEDS ORDERED: potassium Cl 20 mEq SR tablet PO PRN ×2 (09:05)
[2021-05-20] MEDS ORDERED: magnesium Cl slow-release 64mg tablet PO PRN (09:05)
[2021-05-20] MEDS ORDERED: magnesium 4gm in 100ml NS 100 ML IV PRN (09:05)
[2021-05-20] MEDS ORDERED: acetaminophen 325mg tablet PO PRN (09:05)
[2021-05-20] MEDS ORDERED: potassium CL 10mEq/100ml bag 100 ML IV PRN (09:05)
[2021-05-20] MEDS ORDERED: ondansetron/PF 4mg/2ml inj IV PRN (09:05)
[2021-05-20] MEDS ORDERED: magnesium 2GM in 50ml NS 50 ML IV PRN (09:05)
[2021-05-20 11:15] VITALS: BP 146/73
[2021-05-20] MEDS ORDERED: PANT40TA54 PO (11:18)
[2021-05-20] MEDS ORDERED: AMIO200T61 PO (11:18)
[2021-05-20] MEDS ORDERED: METO50TA16 PO (11:18)
[2021-05-20 12:25] LABS: MAGNESIUM 2.1 MG/DL (1.5-2.4); POTASSIUM 4.6 MMOL/L (3.5-5.1)
[2021-05-20] MEDS ORDERED: dexamethasone 4mg/ml inj IM SCH (13:40)
[2021-05-20 14:00] VITALS: BP 154/61
[2021-05-20 18:00] VITALS: BP 109/64
--- NOTE | 2021-05-20 18:22 | NUR ---
Problems reprioritized. Patient report given, questions answered & plan of care reviewed with AUGUST HINTON.
[2021-05-20] MEDS ORDERED: DEXAMETHASONE 6 MG TABLET PO SCH (18:45)
[2021-05-20] MEDS: K and/or MAG REPLACEMENT MC SCH (20:00)
[2021-05-20] MEDS: furosemide 40mg tablet PO SCH (21:38)
[2021-05-20] MEDS: apixaban 2.5mg tablet PO SCH (21:38)
[2021-05-20] MEDS: gabapentin 100mg capsule PO SCH (21:39)
[2021-05-20] MEDS: pantoprazole 40mg Tablet.DR PO SCH (21:39)
[2021-05-20] MEDS: cinacalcet 30mg tablet PO SCH (21:41)
[2021-05-20] MEDS: metoprolol tartrate 50mg tablet PO SCH (21:42)
[2021-05-20 22:00] VITALS: BP 146/71
[2021-05-20] MEDS ORDERED: guaiFENesin/DM 10ml UD oral syrup PO PRN (23:35)
[2021-05-20] MEDS: hydrALAZINE 25 MG tablet PO SCH (23:57)
[2021-05-21 02:00] VITALS: BP 134/65
[2021-05-21 06:38] VITALS: BP 116/68
--- NOTE | 2021-05-21 06:41 | NUR ---
Patient in room ORTHO 4017. I have received report from Alicia RN and had the opportunity to ask questions and assume patient care.
[2021-05-21] MEDS ORDERED: DOXERCALCIFEROL IV SCH (08:00)
[2021-05-21] MEDS: cinacalcet 30mg tablet PO SCH ×2 (08:00→13:35)
[2021-05-21] MEDS ORDERED: amLODIPine 5mg tablet PO SCH (08:00)
[2021-05-21] MEDS: K and/or MAG REPLACEMENT MC SCH (08:00)
[2021-05-21] MEDS ORDERED: folic acid/vitamin B complex w/vitamin C 0.8mg tablet PO SCH (08:00)
[2021-05-21] MEDS ORDERED: amiodarone 200mg tablet PO SCH (08:00)
[2021-05-21] MEDS ORDERED: atorvastatin 20mg tablet PO SCH (08:00)
[2021-05-21] MEDS ORDERED: aspirin 81mg, enteric-coated 1 TAB TABLET.DR PO SCH (08:00)
[2021-05-21] MEDS ORDERED: lisinopril 20mg tablet PO SCH (08:00)
[2021-05-21] MEDS: LANTHANUM CARBONATE 1000 MG PO SCH ×2 (08:00)
[2021-05-21] MEDS ORDERED: dexamethasone 6 MG/D5W 100ml IV.soln (total 101.5ml) IV SCH ×2 (08:00)
[2021-05-21 08:35] LABS: BASOPHILS % (AUTO) 0.5 % (0-1); EOSINOPHILS % (AUTO) 0 % (0-6); HEMATOCRIT 30.1 % (35.0-45.0); HEMOGLOBIN 9.6 g/dl (12.0-16.0); LYMPHOCYTES # (AUTO) 0.3 X10'3 (1.1-4.8); LYMPHOCYTES % (AUTO) 5.9 % (21-51); MEAN CORPUSCULAR HEMOGLOBIN 32.1 PG (27.0-31.0); MEAN CORPUSCULAR HGB CONC 31.9 g/dL (33.0-36.5); MEAN CORPUSCULAR VOLUME 100.8 FL (78-98); MONOCYTES # (AUTO) 0.4 X10'3 (0-0.9); MONOCYTES % (AUTO) 8.4 % (2-12); NEUTROPHILS # (AUTO) 3.9 X10'3 (1.8-7.7); NEUTROPHILS % (AUTO) 85.2 % (42-75); PLATELET COUNT 143 X10'3 (140-440); RED BLOOD COUNT 2.99 X10'6 (4.20-5.60); RED CELL DISTRIBUTION WIDTH 20.4 % (11.5-14.5); WHITE BLOOD COUNT 4.6 X10'3 (4.5-11.0)
[2021-05-21] MEDS: pantoprazole 40mg Tablet.DR PO SCH (08:51)
[2021-05-21] MEDS: metoprolol tartrate 50mg tablet PO SCH (08:52)
[2021-05-21] MEDS: hydrALAZINE 25 MG tablet PO SCH (08:52)
[2021-05-21] MEDS: gabapentin 100mg capsule PO SCH ×2 (08:53→13:35)
[2021-05-21] MEDS: apixaban 2.5mg tablet PO SCH (08:53)
[2021-05-21] MEDS: furosemide 40mg tablet PO SCH (08:53)
--- NOTE | 2021-05-21 08:59 | NUR ---
Malnutrition Consult: Pt admit DX COVID-19 hx ESRD on HD per EMR. Pt PO ~54% avg first three renal diet meals partially meeting needs w/ no significant weakness, and no edema/wounds noted per EMR. Pt appears well-developed per MD note w/ no scaled wt this admit but reported wt consistent w/ bed scaled wt 03/01/21 admit per EMR. Pt on 2-4L NC and PO is decent given age but would benefit from Nepro ONS BIDBD to assist meeting protein/kcal needs on HD w/ COVID DX per EMR. MD notified of ONS recs. At this time pt lacks minimum two malnutrition criteria. Will monitor for further nutrition intervention needs this admit. Addendum: 05/21/21 at [address] Amended: Links added.
[2021-05-21 09:00] VITALS: BP 134/58
--- NOTE | 2021-05-21 09:00 | NUR ---
When meds given patient VS were 134/58 100spo and hr 66
[2021-05-21 09:22] LABS: ALBUMIN 3.2 G/DL (3.4-5.0); ANION GAP 14 (8-16); BLOOD UREA NITROGEN 32 MG/DL (7-18); BUN/CREATININE RATIO 7.7 (6.6-38.0); CHLORIDE 99 MMOL/L (99-107); CREATININE 4.15 MG/DL (0.40-0.90); GLUCOSE 151 MG/DL (70-104); MAGNESIUM 2.1 MG/DL (1.5-2.4); SODIUM 138 MMOL/L (135-145); TOTAL CARBON DIOXIDE 25.3 MMOL/L (24-32); eGFR 10 ML/MIN
[2021-05-21 09:47] VITALS: BP 131/69
[2021-05-21 11:10] LABS: PLATELET ESTIMATE DECREASED
[2021-05-21 11:11] LABS: ANISOCYTOSIS 3+
[2021-05-21 11:12] LABS: ELLIPTOCYTES FEW; LARGE PLATELETS FEW; POLYCHROMASIA FEW; SCHISTOCYTES FEW; TEAR DROP CELLS FEW
[2021-05-21] MEDS ORDERED: DEXA2TAB PO (12:17)
[2021-05-21] MEDS ORDERED: NUT.TX.IMP.RENAL FXN,LAC-REDUC (Nepro) 237 ML VANILLA PO SCH (17:30)
== END 2021-05-21 15:10 | disposition home or self-care (01) | DRG 177 ==
LOC: ER 06:48 → ED HOLD 09:10 → ORTHO 4S 11:11
PROVIDERS: ADMIT Internal Medicine; ATTEND Family Medicine
PROC: 5A1D70Z Performance of Urinary Filtration, Intermittent, Less than 6 Hours Per Day (ICD-10-PCS; principal; 2021-05-20)
DX: U07.1 COVID-19 (principal); J96.21 Acute and chronic respiratory failure with hypoxia; N18.6 End stage renal disease; J96.22 Acute and chronic respiratory failure with hypercapnia; I48.20 Chronic atrial fibrillation, unspecified; I50.22 Chronic systolic (congestive) heart failure; I13.2 Hypertensive heart and chronic kidney disease with heart failure and with stage 5 chronic kidney disease, or end stage renal disease; E11.22 Type 2 diabetes mellitus with diabetic chronic kidney disease; E78.5 Hyperlipidemia, unspecified; E11.42 Type 2 diabetes mellitus with diabetic polyneuropathy; K21.9 Gastro-esophageal reflux disease without esophagitis; Z79.01 Long term (current) use of anticoagulants; Z99.2 Dependence on renal dialysis; Z80.52 Family history of malignant neoplasm of bladder; Z82.49 Family history of ischemic heart disease and other diseases of the circulatory system; Z99.81 Dependence on supplemental oxygen; Z79.899 Other long term (current) drug therapy; Z79.82 Long term (current) use of aspirin
CPT/HCPCS: 36415; 71045; 80048; 80053; 82948; 83036; 83735; 83880; 84132; 84484; 85008; 85025; 85027; 87081; 93005; 96374; 99285; G0257; G0378; J0604; J1100; J3490; J7060; M0247; P9047; Q0247; Q4081

== ENCOUNTER 2021-06-11 17:26 | Inpatient (IN) | payer MEDICARE, OTHER ==
[~2021-06-11] VITALS: Ht 167.6 cm; Wt 65.0 kg
[~2021-06-11 17:26] MED LIST changes: +AMIO200T61 PO; +DEXA2TAB PO; -EPOE200015 IV; -LOP12.5T PO; +METO50TA16 PO; -OMEP40CA21 PO; +PANT40TA54 PO
[2021-06-11] MEDS ORDERED: pantoprazole IV 80 MG in normal saline 100ml IV soln 100 ML IV ONE (18:15)
[2021-06-11] MEDS ORDERED: pantoprazole 40MG/NS 100ML BAG 100 ML IV SCH ×2 (18:20→21:00)
--- NOTE | 2021-06-11 18:50 | NUR ---
First encounter with pt. , resting on stretcher, awake, a/o, lab at bs. denies need
[2021-06-11 19:13] LABS: BASOPHILS # (AUTO) 0.1 X10'3 (0-0.2); BASOPHILS % (AUTO) 0.7 % (0-1); EOSINOPHILS % (AUTO) 0 % (0-6); HEMATOCRIT 28.5 % (35.0-45.0); HEMOGLOBIN 9.1 g/dl (12.0-16.0); LYMPHOCYTES # (AUTO) 0.4 X10'3 (1.1-4.8); LYMPHOCYTES % (AUTO) 4.3 % (21-51); MEAN CORPUSCULAR HEMOGLOBIN 32.4 PG (27.0-31.0); MEAN CORPUSCULAR VOLUME 101.1 FL (78-98); MEAN PLATELET VOLUME 9.3 FL (7.4-10.4); MONOCYTES # (AUTO) 0.2 X10'3 (0-0.9); NEUTROPHILS # (AUTO) 7.5 X10'3 (1.8-7.7); PLATELET COUNT 156 X10'3 (140-440); RED BLOOD COUNT 2.81 X10'6 (4.20-5.60); RED CELL DISTRIBUTION WIDTH 21.4 % (11.5-14.5); WHITE BLOOD COUNT 8.2 X10'3 (4.5-11.0)
[2021-06-11 19:24] LABS: APTT 28 SECONDS (22-32); D-DIMER 0.98 MG/L FEU (0-0.50)
[2021-06-11 19:34] LABS: ALANINE AMINOTRANSFERASE 55 U/L (12-78); ALBUMIN 3.5 G/DL (3.4-5.0); ALBUMIN/GLOBULIN RATIO 0.8 (1.1-1.5); ALKALINE PHOSPHATASE 130 IU/L (46-116); ANION GAP 15 (8-16); ASPARTATE AMINO TRANSFERASE 70 U/L (10-37); BILIRUBIN,TOTAL 0.6 MG/DL (0.1-1.0); BLOOD UREA NITROGEN 55 MG/DL (7-18); CALCIUM 9.9 MG/DL (8.5-10.1); CHLORIDE 97 MMOL/L (99-107); GLUCOSE 192 MG/DL (70-104); SODIUM 139 MMOL/L (135-145); TOTAL CARBON DIOXIDE 27.4 MMOL/L (24-32); TOTAL PROTEIN 7.7 G/DL (6.4-8.2); eGFR 8 ML/MIN
[2021-06-11 19:37] LABS: POTASSIUM 6.3 MMOL/L (3.5-5.1)
[2021-06-11] MEDS ORDERED: furosemide 10 MG/1 ML 10ml inj IV ONE (20:05)
[2021-06-11] MEDS ORDERED: calcium chloride 100 MG/1 ML inj IV ONE (21:00)
[2021-06-11] MEDS ORDERED: insulin regular, human 10 units/0.1 ml syringe IV ONE ×2 (21:00→22:10)
[2021-06-11] MEDS ORDERED: dextrose 50%-water 50ml dispensing syringe IV ONE ×2 (21:00→22:10)
[2021-06-11 21:22] LABS: ANISOCYTOSIS 3+; PLATELET ESTIMATE NORMAL
[2021-06-11 21:25] LABS: ELLIPTOCYTES FEW; POLYCHROMASIA FEW
[2021-06-11] MEDS ORDERED: ondansetron/PF 4mg/2ml inj IV PRN (22:10)
[2021-06-11] MEDS ORDERED: HYDROcodone/acetaminophen 5mg/325mg tablet PO PRN (22:10)
[2021-06-11] MEDS ORDERED: albuterol 2.5 MG/3 ML nebule NEB ONE (22:10)
[2021-06-11] MEDS ORDERED: morphine 2 MG/ML inj. syringe IV PRN (22:10)
[2021-06-11] MEDS ORDERED: CALCIUM GLUC 1gm/50ml NACL,iso 50 ML IV ONE (22:10)
[2021-06-11] MEDS ORDERED: acetaminophen 325mg tablet PO PRN ×2 (22:10)
[2021-06-11] MEDS: normal saline 1000ml 1,000 ML IV SCH (23:42)
--- NOTE | 2021-06-12 00:05 | NUR ---
pt assisted to the bs comode for dark soft stool
--- NOTE | 2021-06-12 01:00 | NUR ---
Duplicate orders for Insulin R 5 units and 10 units, and Dextrose 50 ml and 25 ml found on eMAR verified with Dr. Ibarra; will give Insulin 5 units and Dextrose [address] Ibarra.
--- NOTE | 2021-06-12 01:47 | NUR ---
Report called to unit rn
[2021-06-12 02:11] LABS: BASOPHILS # (AUTO) 0.1 X10'3 (0-0.2); BASOPHILS % (AUTO) 0.8 % (0-1); EOSINOPHILS % (AUTO) 0.1 % (0-6); HEMATOCRIT 28.6 % (35.0-45.0); LYMPHOCYTES # (AUTO) 0.8 X10'3 (1.1-4.8); LYMPHOCYTES % (AUTO) 7.1 % (21-51); MEAN CORPUSCULAR HEMOGLOBIN 32.9 PG (27.0-31.0); MEAN CORPUSCULAR HGB CONC 31.3 g/dL (33.0-36.5); MEAN PLATELET VOLUME 9.5 FL (7.4-10.4); MONOCYTES # (AUTO) 0.8 X10'3 (0-0.9); MONOCYTES % (AUTO) 7.6 % (2-12); NEUTROPHILS # (AUTO) 9.4 X10'3 (1.8-7.7); NEUTROPHILS % (AUTO) 84.4 % (42-75); PLATELET COUNT 158 X10'3 (140-440); RED BLOOD COUNT 2.73 X10'6 (4.20-5.60); RED CELL DISTRIBUTION WIDTH 22.1 % (11.5-14.5); WHITE BLOOD COUNT 11.1 X10'3 (4.5-11.0)
[2021-06-12 04:00] VITALS: BP 130/72
[2021-06-12 04:01] LABS: ANISOCYTOSIS 3+; PLATELET ESTIMATE NORMAL
[2021-06-12 04:02] LABS: POLYCHROMASIA FEW; TEAR DROP CELLS FEW
[2021-06-12 06:00] VITALS: BP 135/78
[2021-06-12 06:37] LABS: ALANINE AMINOTRANSFERASE 57 U/L (12-78); ALBUMIN 3.5 G/DL (3.4-5.0); ALBUMIN/GLOBULIN RATIO 0.9 (1.1-1.5); ALKALINE PHOSPHATASE 112 IU/L (46-116); ANION GAP 22 (8-16); ASPARTATE AMINO TRANSFERASE 67 U/L (10-37); BILIRUBIN,TOTAL 0.8 MG/DL (0.1-1.0); BLOOD UREA NITROGEN 62 MG/DL (7-18); BUN/CREATININE RATIO 11.5 (6.6-38.0); CALCIUM 10.8 MG/DL (8.5-10.1); CHLORIDE 98 MMOL/L (99-107); CREATININE 5.38 MG/DL (0.40-0.90); GLUCOSE 91 MG/DL (70-104); SODIUM 140 MMOL/L (135-145); TOTAL CARBON DIOXIDE 20.1 MMOL/L (24-32); TOTAL PROTEIN 7.4 G/DL (6.4-8.2); eGFR 8 ML/MIN
[2021-06-12 06:41] LABS: POTASSIUM 6.2 MMOL/L (3.5-5.1)
[2021-06-12] MEDS ORDERED: LIDOcaine 1% (10mg/ml) 2ml vial SQ ONE (08:00)
[2021-06-12] MEDS ORDERED: EPOETIN ALFA-EPBX 20,000 UNIT/ML 1 ML MDV IV ONE (08:00)
[2021-06-12] MEDS ORDERED: normal saline 1000ml 250 ML IV PRN (08:00)
[2021-06-12] MEDS ORDERED: normal saline 1000ml 100 ML IV PRN (08:00)
[2021-06-12] MEDS: pantoprazole 40MG/NS 100ML BAG 100 ML IV SCH ×2 (08:23→21:32)
[2021-06-12] MEDS ORDERED: FLU VACC QS2021-22(6MOS UP)/PF 60 MCG/0.5 ML SYRINGE IM ONE (09:00)
[2021-06-12 10:26] LABS: % IRON SATURATION 54 % (11-46); IRON 113 UG/DL (49-151); TOTAL IRON BINDING CAPACITY 211 UG/DL (259-388)
[2021-06-12 11:00] VITALS: BP 140/75
[2021-06-12 12:00] LABS: FERRITIN 7497 NG/ML (8-252)
[2021-06-12 15:18] LABS: BASOPHILS # (AUTO) 0.1 X10'3 (0-0.2); BASOPHILS % (AUTO) 0.8 % (0-1); EOSINOPHILS % (AUTO) 0.1 % (0-6); HEMATOCRIT 27.8 % (35.0-45.0); HEMOGLOBIN 8.8 g/dl (12.0-16.0); LYMPHOCYTES # (AUTO) 0.6 X10'3 (1.1-4.8); LYMPHOCYTES % (AUTO) 6.6 % (21-51); MEAN CORPUSCULAR HEMOGLOBIN 32.6 PG (27.0-31.0); MEAN CORPUSCULAR HGB CONC 31.8 g/dL (33.0-36.5); MEAN CORPUSCULAR VOLUME 102.7 FL (78-98); MEAN PLATELET VOLUME 8.4 FL (7.4-10.4); MONOCYTES # (AUTO) 0.6 X10'3 (0-0.9); MONOCYTES % (AUTO) 6.2 % (2-12); NEUTROPHILS # (AUTO) 7.9 X10'3 (1.8-7.7); NEUTROPHILS % (AUTO) 86.3 % (42-75); PLATELET COUNT 135 X10'3 (140-440); RED BLOOD COUNT 2.71 X10'6 (4.20-5.60); RED CELL DISTRIBUTION WIDTH 21.6 % (11.5-14.5); WHITE BLOOD COUNT 9.1 X10'3 (4.5-11.0)
[2021-06-12 18:00] VITALS: BP 141/83
[2021-06-12 22:00] VITALS: BP 132/85
[2021-06-12] MEDS: temazepam 15mg capsule PO PRN (23:29)
[2021-06-13 02:00] VITALS: BP 149/89
[2021-06-13 06:00] VITALS: BP 135/80
[2021-06-13 06:24] LABS: HBSAG SCREEN Negative (Negative)
[2021-06-13 07:39] LABS: BASOPHILS # (AUTO) 0.1 X10'3 (0-0.2); BASOPHILS % (AUTO) 1.4 % (0-1); EOSINOPHILS # (AUTO) 0.1 X10'3 (0-0.9); EOSINOPHILS % (AUTO) 0.7 % (0-6); HEMATOCRIT 26.3 % (35.0-45.0); HEMOGLOBIN 8.4 g/dl (12.0-16.0); LYMPHOCYTES # (AUTO) 0.6 X10'3 (1.1-4.8); LYMPHOCYTES % (AUTO) 7.9 % (21-51); MEAN CORPUSCULAR HEMOGLOBIN 32.7 PG (27.0-31.0); MEAN CORPUSCULAR HGB CONC 31.8 g/dL (33.0-36.5); MEAN CORPUSCULAR VOLUME 102.8 FL (78-98); MEAN PLATELET VOLUME 8.9 FL (7.4-10.4); MONOCYTES # (AUTO) 0.5 X10'3 (0-0.9); MONOCYTES % (AUTO) 7.1 % (2-12); NEUTROPHILS # (AUTO) 5.9 X10'3 (1.8-7.7); NEUTROPHILS % (AUTO) 82.9 % (42-75); PLATELET COUNT 136 X10'3 (140-440); RED BLOOD COUNT 2.55 X10'6 (4.20-5.60); RED CELL DISTRIBUTION WIDTH 21.6 % (11.5-14.5); WHITE BLOOD COUNT 7.1 X10'3 (4.5-11.0)
[2021-06-13 08:06] LABS: ALANINE AMINOTRANSFERASE 65 U/L (12-78); ALBUMIN 3.2 G/DL (3.4-5.0); ALBUMIN/GLOBULIN RATIO 0.8 (1.1-1.5); ALKALINE PHOSPHATASE 96 IU/L (46-116); ANION GAP 15 (8-16); ASPARTATE AMINO TRANSFERASE 56 U/L (10-37); BILIRUBIN,TOTAL 0.7 MG/DL (0.1-1.0); BLOOD UREA NITROGEN 33 MG/DL (7-18); BUN/CREATININE RATIO 8.8 (6.6-38.0); CALCIUM 9.5 MG/DL (8.5-10.1); CHLORIDE 100 MMOL/L (99-107); CREATININE 3.76 MG/DL (0.40-0.90); GLUCOSE 110 MG/DL (70-104); POTASSIUM 4.5 MMOL/L (3.5-5.1); SODIUM 141 MMOL/L (135-145); TOTAL CARBON DIOXIDE 26.2 MMOL/L (24-32); eGFR 11 ML/MIN
[2021-06-13 08:19] LABS: ANISOCYTOSIS 3+; PLATELET ESTIMATE DECREASED; POIKILOCYTOSIS FEW; TEAR DROP CELLS FEW
[2021-06-13] MEDS: pantoprazole 40MG/NS 100ML BAG 100 ML IV SCH ×2 (08:20→20:04)
[2021-06-13] MEDS ORDERED: EPOETIN ALFA-EPBX 20,000 UNIT/ML 1 ML MDV IV ONE (09:55)
[2021-06-13] MEDS ORDERED: albumin (human) 25% 100ml IV 100 ML IV PRN (09:55)
[2021-06-13 10:00] VITALS: BP 126/72
[2021-06-13] MEDS ORDERED: amiodarone/D5 360MG/200ML BAG 200 ML IV SCH (15:55)
[2021-06-13] MEDS ORDERED: amiodarone 150mg/dext, iso-os 100 ML IV ONE (15:55)
[2021-06-13 17:01] LABS: BASOPHILS # (AUTO) 0.1 X10'3 (0-0.2); EOSINOPHILS # (AUTO) 0.1 X10'3 (0-0.9); EOSINOPHILS % (AUTO) 0.7 % (0-6); HEMATOCRIT 26.1 % (35.0-45.0); HEMOGLOBIN 8.5 g/dl (12.0-16.0); LYMPHOCYTES # (AUTO) 0.5 X10'3 (1.1-4.8); MEAN CORPUSCULAR HEMOGLOBIN 33.3 PG (27.0-31.0); MEAN CORPUSCULAR HGB CONC 32.5 g/dL (33.0-36.5); MEAN CORPUSCULAR VOLUME 102.4 FL (78-98); MONOCYTES # (AUTO) 0.6 X10'3 (0-0.9); MONOCYTES % (AUTO) 7.1 % (2-12); NEUTROPHILS # (AUTO) 6.6 X10'3 (1.8-7.7); NEUTROPHILS % (AUTO) 84.2 % (42-75); PLATELET COUNT 153 X10'3 (140-440); RED BLOOD COUNT 2.55 X10'6 (4.20-5.60); RED CELL DISTRIBUTION WIDTH 22.1 % (11.5-14.5); WHITE BLOOD COUNT 7.9 X10'3 (4.5-11.0)
[2021-06-13] MEDS: amiodarone/D5 360MG/200ML BAG 200 ML IV SCH ×2 (17:01→21:58)
--- NOTE | 2021-06-13 17:12 | NUR ---
HD RN SET-UP IINITIATED AND REPORTED PT 130'S SUSTAINING ,PER HD RN SHE TEXTED Dr. DUNAWAY ORDERS INITIATED FOR INCREASED HR, AMIODARONE BOLUS GIVEN, FOLLOWED BY IV AMIODARONE@33.3ML/HR. NOTIFED MONITOR ROOM RUBEN TO MONITOR AND NOTIFY OF ADDTL CHANGES. WILL CONTINUE TO MONITOR.AMIODARONE PROTOCOL IN PROGRESS.
[2021-06-13 18:00] VITALS: BP 131/74
[2021-06-13 20:00] VITALS: BP 124/60
[2021-06-13] MEDS: temazepam 15mg capsule PO PRN (20:04)
[2021-06-13 22:00] VITALS: BP 145/90
[2021-06-13] MEDS: normal saline 1000ml 1,000 ML IV SCH (22:10)
[2021-06-14] VITALS (10 sets, daily range): BP systolic 129–159; BP diastolic 53–82
[2021-06-14] MEDS: amiodarone/D5 360MG/200ML BAG 200 ML IV SCH ×2 (04:08→10:12)
--- NOTE | 2021-06-14 06:35 | NUR ---
Problems reprioritized. Patient report given, questions answered & plan of care reviewed with Sara.
[2021-06-14 07:09] LABS: BASOPHILS # (AUTO) 0.1 X10'3 (0-0.2); BASOPHILS % (AUTO) 0.8 % (0-1); EOSINOPHILS # (AUTO) 0.1 X10'3 (0-0.9); EOSINOPHILS % (AUTO) 1.3 % (0-6); HEMATOCRIT 26.6 % (35.0-45.0); HEMOGLOBIN 8.6 g/dl (12.0-16.0); LYMPHOCYTES # (AUTO) 0.6 X10'3 (1.1-4.8); LYMPHOCYTES % (AUTO) 7.8 % (21-51); MEAN CORPUSCULAR HGB CONC 32.5 g/dL (33.0-36.5); MEAN CORPUSCULAR VOLUME 101.6 FL (78-98); MEAN PLATELET VOLUME 9.1 FL (7.4-10.4); MONOCYTES # (AUTO) 0.5 X10'3 (0-0.9); MONOCYTES % (AUTO) 6.9 % (2-12); NEUTROPHILS # (AUTO) 6.2 X10'3 (1.8-7.7); NEUTROPHILS % (AUTO) 83.2 % (42-75); PLATELET COUNT 167 X10'3 (140-440); RED BLOOD COUNT 2.62 X10'6 (4.20-5.60); RED CELL DISTRIBUTION WIDTH 21.6 % (11.5-14.5); WHITE BLOOD COUNT 7.5 X10'3 (4.5-11.0)
[2021-06-14] MEDS: pantoprazole 40MG/NS 100ML BAG 100 ML IV SCH ×2 (07:09→20:36)
[2021-06-14 07:37] LABS: ALANINE AMINOTRANSFERASE 74 U/L (12-78); ALBUMIN 3.3 G/DL (3.4-5.0); ALBUMIN/GLOBULIN RATIO 0.8 (1.1-1.5); ALKALINE PHOSPHATASE 98 IU/L (46-116); ANION GAP 17 (8-16); ASPARTATE AMINO TRANSFERASE 63 U/L (10-37); BILIRUBIN,TOTAL 0.7 MG/DL (0.1-1.0); BLOOD UREA NITROGEN 45 MG/DL (7-18); BUN/CREATININE RATIO 9.2 (6.6-38.0); CALCIUM 9.6 MG/DL (8.5-10.1); CHLORIDE 94 MMOL/L (99-107); CREATININE 4.91 MG/DL (0.40-0.90); GLUCOSE 135 MG/DL (70-104); POTASSIUM 4.6 MMOL/L (3.5-5.1); SODIUM 136 MMOL/L (135-145); TOTAL CARBON DIOXIDE 24.8 MMOL/L (24-32); TOTAL PROTEIN 7.2 G/DL (6.4-8.2); eGFR 8 ML/MIN
[2021-06-14 08:01] LABS: ANISOCYTOSIS 3+; PLATELET ESTIMATE NORMAL; POIKILOCYTOSIS 1+
[2021-06-14] MEDS ORDERED: normal saline 1000ml 250 ML IV PRN (09:40)
[2021-06-14] MEDS ORDERED: normal saline 1000ml 100 ML IV PRN (09:40)
[2021-06-14] MEDS ORDERED: LIDOcaine 1% (10mg/ml) 2ml vial SQ ONE (09:40)
[2021-06-14] MEDS ORDERED: EPOETIN ALFA-EPBX 20,000 UNIT/ML 1 ML MDV IV ONE (09:40)
[2021-06-14] MEDS ORDERED: diltiazem CD 180mg cap (once-daily) PO ONE (10:00)
[2021-06-14] MEDS: apixaban 2.5mg tablet PO SCH ×2 (10:15→20:36)
[2021-06-14] MEDS ORDERED: ondansetron 4mg rapidly disintigrating tab PO PRN (11:40)
[2021-06-14] MEDS ORDERED: diltiazem CD 120mg capsule (once-daily) PO ONE (19:00)
[2021-06-14] MEDS ORDERED: diltiazem 5mg/ml 5ml inj. IV ONE (21:15)
[2021-06-14] MEDS: temazepam 15mg capsule PO PRN (22:26)
[2021-06-15 02:00] VITALS: BP 121/53
--- NOTE | 2021-06-15 04:29 | NUR ---
81-year-old female, admitted 06/12/2021, day 3 of hospitalization, Full code, NDA, no restraints, no isolation. Who came with her concern regarding shortness of breath. When I evaluated the patient, the patient was using 3-liter oxygen and was saturating 100%. The patient is a dialysis patient and she recently had dialysis done yesterday. The patient also has cardiac issues and follows with Dr. Renae. The patient denied any chest pain, no cough, no fever, noticed mild phlegm. Denied any swelling over the ankles. The patient also mentioned that she has noticed that her stools are loose and black stools. As per the patient, she has history of ulcer. ER physician paged Dr. Fernandes and unable to get any response from Dr. Fernandes. Old records reviewed. The patient has chronic anemia. The rectal examination showed signs of blood in stool. Further workup was done in ER. Potassium was 6.3. The patient also has aortic stenosis as per her old records of echocardiogram. The patient denies any other symptoms. No other alleviating or exacerbating factors. Upon arrival at the change of shift, the pt was found to be in Rapid A-FIB rate of 130- 140, Pt had been on an Amiodarone gtt, according to the Day RN the MD was aware of the Rate. Called Dr Avendano and obtained an order for Cardizem IV 10 MG push. Pt has been in AF rate 70-90's. BP 129/63. Fair pulses. #22 Right wrist f/p. Pt is a difficult stick for a line. Pt is AAO times 4 moves all extremities, follows all commands, afebrile. RR 16 PO 98% 2L NC, Breath sounds, diminished, equal, symmetrical, non labored. Hypoactive bowel sounds, soft non tender, non distended, Renal diet fairly tolerated. Protonix gtt for GI Prophylaxis. Dialysis completed 06/14/2021 removed 2500, Access RAVI. +Br+TH. Skin intact. Pt remains safe. Possible Discharge today.
[2021-06-15 06:00] VITALS: BP 125/74
--- NOTE | 2021-06-15 06:45 | NUR ---
Patient in room MED 308. I have received report from JAMAAL POLANCO, and had the opportunity to ask questions and assume patient care.
[2021-06-15 07:31] LABS: ALANINE AMINOTRANSFERASE 74 U/L (12-78); ALBUMIN 3.1 G/DL (3.4-5.0); ALBUMIN/GLOBULIN RATIO 0.8 (1.1-1.5); ALKALINE PHOSPHATASE 96 IU/L (46-116); ANION GAP 13 (8-16); ASPARTATE AMINO TRANSFERASE 51 U/L (10-37); BILIRUBIN,TOTAL 0.7 MG/DL (0.1-1.0); BLOOD UREA NITROGEN 19 MG/DL (7-18); BUN/CREATININE RATIO 6.5 (6.6-38.0); CALCIUM 9.3 MG/DL (8.5-10.1); CHLORIDE 100 MMOL/L (99-107); CREATININE 2.93 MG/DL (0.40-0.90); GLUCOSE 121 MG/DL (70-104); POTASSIUM 3.8 MMOL/L (3.5-5.1); SODIUM 140 MMOL/L (135-145); TOTAL CARBON DIOXIDE 26.9 MMOL/L (24-32); TOTAL PROTEIN 6.9 G/DL (6.4-8.2); eGFR 15 ML/MIN
[2021-06-15] MEDS: pantoprazole 40MG/NS 100ML BAG 100 ML IV SCH (08:35)
--- NOTE | 2021-06-15 08:35 | NUR ---
Initial: Pt admitted w/ SOB, ESRD on HD, and black stools per EMR. Pt currently on Renal diet w/ avg intake 80% x 9 meals which meets about 97% of est energy needs and 75% of eset protein needs. Will provide double protein w/ some meals to help fully meet needs. Pt currently on HD, last treatment 06/14 w/ 2.5L out per documentation. LBM 06/13. Will continue to monitor. Recs: 1. Continue Renal diet as tolerated 2. Double protein WB 3. Bowel care per rx 4. Scaled wts w/ HD Addendum: 06/15/21 at [address] Amended: Links added.
[2021-06-15] MEDS: diltiazem CD 120mg capsule (once-daily) PO SCH (08:38)
[2021-06-15] MEDS: apixaban 2.5mg tablet PO SCH ×2 (08:39→19:20)
[2021-06-15 11:00] VITALS: BP 127/83
[2021-06-15] MEDS: gabapentin 100mg capsule PO SCH ×2 (12:45→20:58)
[2021-06-15 15:00] VITALS: BP 128/69
--- NOTE | 2021-06-15 18:06 | NUR ---
Problems reprioritized. Patient report given, questions answered & plan of care reviewed with JAMAAL JAIMES.
[2021-06-15 19:17] VITALS: BP 140/70
[2021-06-15] MEDS: furosemide 40mg tablet PO SCH (19:19)
[2021-06-15] MEDS: pantoprazole 40mg Tablet.DR PO SCH (19:20)
[2021-06-15] MEDS: metoprolol tartrate 25mg tablet PO SCH (19:20)
[2021-06-15] MEDS ORDERED: apixaban 2.5mg tablet PO SCH (20:00)
[2021-06-15 22:37] VITALS: BP 135/58
[2021-06-15] MEDS: normal saline 1000ml 1,000 ML IV SCH (22:37)
[2021-06-16 02:00] VITALS: BP 130/57
[2021-06-16 06:00] VITALS: BP 122/65
[2021-06-16 07:33] LABS: ALANINE AMINOTRANSFERASE 46 U/L (12-78); ALBUMIN 3.1 G/DL (3.4-5.0); ALBUMIN/GLOBULIN RATIO 0.8 (1.1-1.5); ALKALINE PHOSPHATASE 91 IU/L (46-116); ANION GAP 12 (8-16); ASPARTATE AMINO TRANSFERASE 21 U/L (10-37); BILIRUBIN,TOTAL 0.6 MG/DL (0.1-1.0); BLOOD UREA NITROGEN 30 MG/DL (7-18); BUN/CREATININE RATIO 6.6 (6.6-38.0); CALCIUM 9.3 MG/DL (8.5-10.1); CHLORIDE 99 MMOL/L (99-107); CREATININE 4.52 MG/DL (0.40-0.90); GLUCOSE 152 MG/DL (70-104); POTASSIUM 4.2 MMOL/L (3.5-5.1); SODIUM 137 MMOL/L (135-145); TOTAL PROTEIN 6.8 G/DL (6.4-8.2); eGFR 9 ML/MIN
[2021-06-16] MEDS ORDERED: aspirin 81mg, enteric-coated 1 TAB TABLET.DR PO SCH (08:00)
[2021-06-16] MEDS ORDERED: amiodarone 200mg tablet PO SCH (08:00)
[2021-06-16] MEDS ORDERED: folic acid/vitamin B complex w/vitamin C 0.8mg tablet PO SCH (08:00)
[2021-06-16] MEDS: diltiazem CD 120mg capsule (once-daily) PO SCH (08:52)
[2021-06-16] MEDS: gabapentin 100mg capsule PO SCH (08:52)
[2021-06-16] MEDS: furosemide 40mg tablet PO SCH (08:53)
[2021-06-16] MEDS: apixaban 2.5mg tablet PO SCH (08:53)
[2021-06-16] MEDS: metoprolol tartrate 25mg tablet PO SCH (08:53)
[2021-06-16] MEDS: pantoprazole 40mg Tablet.DR PO SCH (08:54)
[2021-06-16] MEDS ORDERED: CARCD120C PO (09:18)
[2021-06-16 10:00] VITALS: BP 130/62
--- NOTE | 2021-06-16 13:41 | NUR ---
LARGE DARK BROWN SOFT STOOL. Addendum: 06/16/21 at 1341 by Cassie Dorado RN Amended: Links added.
== END 2021-06-16 14:12 | DRG 640 ==
LOC: ER 17:27 → ED HOLD 22:13 → MED 3N 06-12 02:00
PROVIDERS: ADMIT Internal Medicine; ATTEND Internal Medicine
PROC: 5A1D70Z Performance of Urinary Filtration, Intermittent, Less than 6 Hours Per Day (ICD-10-PCS; 2021-06-12)
PROC: 3E02340 Introduction of Influenza Vaccine into Muscle, Percutaneous Approach (ICD-10-PCS; 2021-06-12)
PROC: CB121ZZ Planar Nuclear Medicine Imaging of Lungs and Bronchi using Technetium 99m (Tc-99m) (ICD-10-PCS; 2021-06-12)
PROC: 5A1D70Z Performance of Urinary Filtration, Intermittent, Less than 6 Hours Per Day (ICD-10-PCS; principal; 2021-06-14)
DX: E87.5 Hyperkalemia (principal); N18.6 End stage renal disease; I50.23 Acute on chronic systolic (congestive) heart failure; I13.2 Hypertensive heart and chronic kidney disease with heart failure and with stage 5 chronic kidney disease, or end stage renal disease; K92.1 Melena; Z20.822 Contact with and (suspected) exposure to COVID-19; I35.0 Nonrheumatic aortic (valve) stenosis; E11.22 Type 2 diabetes mellitus with diabetic chronic kidney disease; R79.89 Other specified abnormal findings of blood chemistry; D63.1 Anemia in chronic kidney disease; I27.81 Cor pulmonale (chronic); I48.0 Paroxysmal atrial fibrillation; Z79.01 Long term (current) use of anticoagulants; Z79.899 Other long term (current) drug therapy; Z80.52 Family history of malignant neoplasm of bladder; Z87.11 Personal history of peptic ulcer disease; Z99.2 Dependence on renal dialysis; Z23 Encounter for immunization; Z79.82 Long term (current) use of aspirin
CPT/HCPCS: 36415; 71045; 78582; 80053; 82728; 82948; 83540; 83550; 83880; 84145; 84484; 85008; 85025; 85379; 85610; 85730; 86885; 86900; 86901; 87081; 87340; 87635; 93005; 94640; 96374; 97110; 97116; 97161; 97530; 99285; A9539; A9540; C9113; G0257; G0378; J0282; J0610; J1815; J1940; J3490; J7030; Q4081

== ENCOUNTER 2021-07-08 09:30 | Inpatient (IN) | payer MEDICARE, OTHER ==
[~2021-07-08] VITALS: Ht 154.9 cm; Wt 52.3 kg
[2021-07-08] VITALS (11 sets, daily range): BP systolic 107–131; BP diastolic 58–75
[~2021-07-08 09:30] MED LIST changes: -AMLO-140 PO; -ASPI81TA52 PO; -ATOR20TA66 PO; +CARCD120C PO; -CINA60TA PO; -DEXA2TAB PO; -DOXE4VIA IV; -HYDR-4069 PO; -LANT1000 PO
[2021-07-08] MEDS ORDERED: pantoprazole IV 80 MG in normal saline 100ml IV soln 100 ML IV ONE (10:25)
[2021-07-08] MEDS ORDERED: pantoprazole 40MG/NS 100ML BAG 100 ML IV SCH (10:35)
[2021-07-08 10:49] LABS: BASOPHILS # (AUTO) 0.1 X10'3 (0-0.2); BASOPHILS % (AUTO) 1.2 % (0-1); EOSINOPHILS # (AUTO) 0.2 X10'3 (0-0.9); EOSINOPHILS % (AUTO) 1.5 % (0-6); LYMPHOCYTES # (AUTO) 0.7 X10'3 (1.1-4.8); LYMPHOCYTES % (AUTO) 6.8 % (21-51); MEAN CORPUSCULAR HEMOGLOBIN 31.1 PG (27.0-31.0); MEAN CORPUSCULAR HGB CONC 31.9 g/dL (33.0-36.5); MEAN CORPUSCULAR VOLUME 97.5 FL (78-98); MEAN PLATELET VOLUME 8.9 FL (7.4-10.4); MONOCYTES # (AUTO) 0.7 X10'3 (0-0.9); MONOCYTES % (AUTO) 6.9 % (2-12); NEUTROPHILS # (AUTO) 8.2 X10'3 (1.8-7.7); NEUTROPHILS % (AUTO) 83.6 % (42-75); PLATELET COUNT 274 X10'3 (140-440); RED BLOOD COUNT 1.98 X10'6 (4.20-5.60); RED CELL DISTRIBUTION WIDTH 20.6 % (11.5-14.5); WHITE BLOOD COUNT 9.8 X10'3 (4.5-11.0)
[2021-07-08 10:51] LABS: HEMATOCRIT 19.4 % (35.0-45.0); HEMOGLOBIN 6.2 g/dl (12.0-16.0)
[2021-07-08 11:02] LABS: APTT 34 SECONDS (22-32)
[2021-07-08 11:06] LABS: ALANINE AMINOTRANSFERASE 33 U/L (12-78); ALBUMIN 2.8 G/DL (3.4-5.0); ALBUMIN/GLOBULIN RATIO 0.7 (1.1-1.5); ALKALINE PHOSPHATASE 96 IU/L (46-116); ANION GAP 13 (8-16); ASPARTATE AMINO TRANSFERASE 23 U/L (10-37); BILIRUBIN,TOTAL 0.4 MG/DL (0.1-1.0); BLOOD UREA NITROGEN 80 MG/DL (7-18); BUN/CREATININE RATIO 13.6 (6.6-38.0); CALCIUM 9.4 MG/DL (8.5-10.1); CHLORIDE 92 MMOL/L (99-107); GLUCOSE 198 MG/DL (70-104); SODIUM 131 MMOL/L (135-145); TOTAL CARBON DIOXIDE 25.6 MMOL/L (24-32); TOTAL PROTEIN 7.1 G/DL (6.4-8.2); eGFR 7 ML/MIN
[2021-07-08 11:12] LABS: ANISOCYTOSIS 3+; LARGE PLATELETS FEW; PLATELET ESTIMATE NORMAL
[2021-07-08 11:15] LABS: POTASSIUM 6.7 MMOL/L (3.5-5.1)
[2021-07-08] MEDS: pantoprazole 40MG/NS 100ML BAG 100 ML IV SCH ×3 (11:19→22:11)
[2021-07-08] MEDS ORDERED: insulin regular, human 10 units/0.1 ml syringe IV ONE (11:20)
[2021-07-08] MEDS ORDERED: dextrose 50%-water 50ml dispensing syringe IV ONE (11:20)
[2021-07-08] MEDS ORDERED: calcium chloride 100 MG/1 ML inj IV ONE (11:20)
[2021-07-08] MEDS ORDERED: human prothrombin complex-PCC 500 UNIT/20 ML VIAL IV ONE ×2 (11:20)
[2021-07-08] MEDS ORDERED: CALCIUM GLUC 1gm/50ml NACL,iso 50 ML IV SCH (11:50)
[2021-07-08] MEDS: CALCIUM GLUC 1gm/50ml NACL,iso 50 ML IV SCH ×3 (12:07→13:10)
[2021-07-08] MEDS ORDERED: EPOETIN ALFA-EPBX 20,000 UNIT/ML 1 ML MDV IV ONE (12:10)
[2021-07-08] MEDS ORDERED: normal saline 1000ml 100 ML IV PRN (12:10)
[2021-07-08] MEDS ORDERED: normal saline 1000ml 250 ML IV PRN (12:10)
[2021-07-08] MEDS ORDERED: ACET650T11 PO (15:48)
[2021-07-08] MEDS ORDERED: BISA10SU11 RC ×2 (15:49→15:59)
[2021-07-08] MEDS ORDERED: metoprolol tartrate 1mg/ml inj IV ONE (15:55)
[2021-07-08] MEDS ORDERED: INSU100V43 SQ (15:58)
[2021-07-08] MEDS ORDERED: LORA10TA7 PO (15:58)
[2021-07-08] MEDS ORDERED: LOP12.5T PO (16:01)
[2021-07-08] MEDS ORDERED: NA P133E4 RC (16:01)
[2021-07-08] MEDS ORDERED: OMEP20TA43 PO (16:01)
[2021-07-08] MEDS ORDERED: ONDA-103 PO (16:03)
[2021-07-08] MEDS ORDERED: TEMA15CA5 PO (16:03)
[2021-07-08] MEDS ORDERED: FOLI0.8T22 PO (16:03)
[2021-07-08] MEDS ORDERED: RIVA15TA PO (16:03)
--- NOTE | 2021-07-08 16:15 | NUR ---
Reprort received from Duane HINTON in ER in preparation to receive pt to ICU. Per Duane, pt tachycardic, 5mg metoprolol just given, and two units of blood have been ordered to be given during HD. critical lab: K: 6.5. Per Ora, 3gm calcioum gluc, plus insulin and D50 given already as wella s K centra to counteract "plavix".
--- NOTE | 2021-07-08 16:45 | NUR ---
Pt arrived to ICU room 2039. Pt alert, oriented x3, tachycardic with HR in 120's. mild SOB when laying flat. no chest pain. pt hooked up to monitors. HD nurse at bedside to commence HD. safety education completed. skin checks completed: skin tear to left fore arm present. skin otherwise unremarkable. protonix GTT hooked up.
--- NOTE | 2021-07-08 18:30 | NUR ---
Problems reprioritized. Patient report given, questions answered & plan of care reviewed with Dulce HINTON. Pt continues on HD, safety measures in place. no s/sx reaction to blood transfusion. pt alert to voice, chest rising and falling evenly. call light within reach.
--- NOTE | 2021-07-08 18:35 | NUR ---
Patient in room ICU 2039. I have received report from Narcisa HINTON and had the opportunity to ask questions and assume patient care.
--- NOTE | 2021-07-08 18:40 | NUR ---
Dr Carrasco rounded on PT before leaving, received verbal order to transfuse the 2units of PRBC's not 4 that were ordered and PT can be transferred out to floor as long as potassium comes back at an acceptable level. Will continue to monitor.
[2021-07-08 20:37] LABS: BASOPHILS # (AUTO) 0.1 X10'3 (0-0.2); BASOPHILS % (AUTO) 0.8 % (0-1); EOSINOPHILS # (AUTO) 0.1 X10'3 (0-0.9); EOSINOPHILS % (AUTO) 0.8 % (0-6); HEMATOCRIT 29.5 % (35.0-45.0); LYMPHOCYTES # (AUTO) 0.5 X10'3 (1.1-4.8); MEAN CORPUSCULAR HEMOGLOBIN 30.7 PG (27.0-31.0); MEAN CORPUSCULAR HGB CONC 33.9 g/dL (33.0-36.5); MEAN CORPUSCULAR VOLUME 90.7 FL (78-98); MONOCYTES # (AUTO) 0.4 X10'3 (0-0.9); MONOCYTES % (AUTO) 4.5 % (2-12); NEUTROPHILS # (AUTO) 7.7 X10'3 (1.8-7.7); NEUTROPHILS % (AUTO) 87.9 % (42-75); PLATELET COUNT 230 X10'3 (140-440); RED BLOOD COUNT 3.25 X10'6 (4.20-5.60); RED CELL DISTRIBUTION WIDTH 19.1 % (11.5-14.5); WHITE BLOOD COUNT 8.7 X10'3 (4.5-11.0)
[2021-07-08 21:32] LABS: ALBUMIN 2.4 G/DL (3.4-5.0); ANION GAP 9 (8-16); BLOOD UREA NITROGEN 28 MG/DL (7-18); BUN/CREATININE RATIO 11.5 (6.6-38.0); CALCIUM 8.1 MG/DL (8.5-10.1); CHLORIDE 103 MMOL/L (99-107); CREATININE 2.43 MG/DL (0.40-0.90); GLUCOSE 100 MG/DL (70-104); SODIUM 139 MMOL/L (135-145); TOTAL CARBON DIOXIDE 27.5 MMOL/L (24-32); eGFR 19 ML/MIN
[2021-07-08 21:33] LABS: POTASSIUM 4.7 MMOL/L (3.5-5.1)
--- NOTE | 2021-07-08 22:11 | NUR ---
Problems reprioritized. Patient report given, questions answered & plan of care reviewed with Ben HINTON.
[2021-07-08 22:12] LABS: ANISOCYTOSIS 2+; PLATELET ESTIMATE NORMAL
[2021-07-08 22:13] LABS: ELLIPTOCYTES FEW; LARGE PLATELETS FEW; POLYCHROMASIA FEW
[2021-07-09] VITALS (24 sets, daily range): BP systolic 86–150; BP diastolic 47–87
[2021-07-09] MEDS: pantoprazole 40MG/NS 100ML BAG 100 ML IV SCH ×3 (02:58→12:52)
[2021-07-09 07:54] LABS: BASOPHILS # (AUTO) 0.1 X10'3 (0-0.2); BASOPHILS % (AUTO) 1.3 % (0-1); EOSINOPHILS # (AUTO) 0.2 X10'3 (0-0.9); HEMATOCRIT 26.3 % (35.0-45.0); HEMOGLOBIN 8.8 g/dl (12.0-16.0); LYMPHOCYTES # (AUTO) 0.6 X10'3 (1.1-4.8); MEAN CORPUSCULAR HEMOGLOBIN 30.5 PG (27.0-31.0); MEAN CORPUSCULAR HGB CONC 33.3 g/dL (33.0-36.5); MEAN CORPUSCULAR VOLUME 91.6 FL (78-98); MEAN PLATELET VOLUME 8.2 FL (7.4-10.4); MONOCYTES # (AUTO) 0.7 X10'3 (0-0.9); MONOCYTES % (AUTO) 8.3 % (2-12); NEUTROPHILS # (AUTO) 6.5 X10'3 (1.8-7.7); NEUTROPHILS % (AUTO) 81.4 % (42-75); PLATELET COUNT 199 X10'3 (140-440); RED BLOOD COUNT 2.87 X10'6 (4.20-5.60); RED CELL DISTRIBUTION WIDTH 19.6 % (11.5-14.5); WHITE BLOOD COUNT 7.9 X10'3 (4.5-11.0)
[2021-07-09 08:12] LABS: ALBUMIN 2.6 G/DL (3.4-5.0); ANION GAP 10 (8-16); BLOOD UREA NITROGEN 39 MG/DL (7-18); CALCIUM 9.1 MG/DL (8.5-10.1); CHLORIDE 102 MMOL/L (99-107); CREATININE 3.55 MG/DL (0.40-0.90); GLUCOSE 102 MG/DL (70-104); POTASSIUM 5.1 MMOL/L (3.5-5.1); SODIUM 140 MMOL/L (135-145); TOTAL CARBON DIOXIDE 28.5 MMOL/L (24-32); eGFR 12 ML/MIN
[2021-07-09] MEDS ORDERED: EPOETIN ALFA-EPBX 20,000 UNIT/ML 1 ML MDV IV ONE (09:40)
[2021-07-09] MEDS ORDERED: normal saline 1000ml 100 ML IV PRN (09:40)
[2021-07-09] MEDS ORDERED: non-formulary drug (Ondansetron HCl 1 TAB) PO PRN (11:10)
[2021-07-09] MEDS ORDERED: bisacodyl 10mg suppository rectal RC PRN (11:10)
[2021-07-09] MEDS ORDERED: acetaminophen 325mg tablet PO PRN (11:15)
[2021-07-09] MEDS ORDERED: LIDOcaine Viscous 15ml cup ONE (12:39)
[2021-07-09] MEDS ORDERED: fentaNYL/PF 50MCG/1 ML 2ML syringe ONE (12:39)
[2021-07-09] MEDS ORDERED: MIDAZolam 1 MG/ML 5ML VIAL ONE (12:39)
--- NOTE | 2021-07-09 12:45 | NUR ---
report given to Sima HINTON tele floor.
--- NOTE | 2021-07-09 12:50 | NUR ---
Patient in room ICU 2039 BEING TRANSFERRED TO [facility]. I have received report from JAMAAL SERRATO and had the opportunity to ask questions WILL AWAIT PTS ARRIVAL TO THE FLOOR AND assume patient care.
[2021-07-09] MEDS: gabapentin 100mg capsule PO SCH ×2 (13:00→20:49)
--- NOTE | 2021-07-09 13:15 | NUR ---
PT ARRIVED TO THE FLOOR IN STABLE CONDITION, WILL CONTINUE TO MONITOR
--- NOTE | 2021-07-09 13:39 | NUR ---
PT LEFT FLOOR TO GO TO GI LAB IN STABLE CONDITION
--- NOTE | 2021-07-09 14:06 | NUR ---
1400 ACCUCHECK NOT DONE DUE TO PT AT GI LAB, WILL MONITOR WHEN PT GETS BACK TO FLOOR
--- NOTE | 2021-07-09 15:44 | NUR ---
pt arrived back to the floor in stable condition
--- NOTE | 2021-07-09 18:33 | NUR ---
Problems reprioritized. Patient report given, questions answered & plan of care reviewed with JAMAAL LIRA.
[2021-07-09] MEDS: furosemide 40mg tablet PO SCH (20:49)
[2021-07-09] MEDS: metoprolol tartrate 25mg tablet PO SCH (20:49)
[2021-07-09] MEDS: pantoprazole 40mg Tablet.DR PO SCH (20:50)
[2021-07-09] MEDS: temazepam 15mg capsule PO PRN (20:51)
[2021-07-10 06:00] VITALS: BP 111/73
[2021-07-10 06:47] LABS: BASOPHILS # (AUTO) 0.1 X10'3 (0-0.2); BASOPHILS % (AUTO) 1.5 % (0-1); EOSINOPHILS # (AUTO) 0.1 X10'3 (0-0.9); HEMATOCRIT 25.7 % (35.0-45.0); HEMOGLOBIN 8.3 g/dl (12.0-16.0); LYMPHOCYTES # (AUTO) 0.6 X10'3 (1.1-4.8); LYMPHOCYTES % (AUTO) 7.9 % (21-51); MEAN CORPUSCULAR HGB CONC 32.2 g/dL (33.0-36.5); MEAN CORPUSCULAR VOLUME 93.1 FL (78-98); MEAN PLATELET VOLUME 8.3 FL (7.4-10.4); MONOCYTES # (AUTO) 0.7 X10'3 (0-0.9); MONOCYTES % (AUTO) 9.4 % (2-12); NEUTROPHILS # (AUTO) 5.8 X10'3 (1.8-7.7); NEUTROPHILS % (AUTO) 79.2 % (42-75); PLATELET COUNT 204 X10'3 (140-440); RED BLOOD COUNT 2.76 X10'6 (4.20-5.60); WHITE BLOOD COUNT 7.4 X10'3 (4.5-11.0)
[2021-07-10 07:33] LABS: ALBUMIN 2.6 G/DL (3.4-5.0); ANION GAP 14 (8-16); BLOOD UREA NITROGEN 55 MG/DL (7-18); BUN/CREATININE RATIO 11.5 (6.6-38.0); CHLORIDE 103 MMOL/L (99-107); CREATININE 4.79 MG/DL (0.40-0.90); GLUCOSE 103 MG/DL (70-104); POTASSIUM 5.7 MMOL/L (3.5-5.1); SODIUM 139 MMOL/L (135-145); TOTAL CARBON DIOXIDE 22.3 MMOL/L (24-32); eGFR 9 ML/MIN
[2021-07-10] MEDS: furosemide 40mg tablet PO SCH ×2 (07:58→19:33)
[2021-07-10] MEDS: metoprolol tartrate 25mg tablet PO SCH ×2 (08:00→19:36)
[2021-07-10] MEDS: folic acid/vitamin B complex w/vitamin C 0.8mg tablet PO SCH (08:00)
[2021-07-10] MEDS: pantoprazole 40mg Tablet.DR PO SCH ×2 (08:01→19:33)
[2021-07-10] MEDS: loratadine 10mg tablet PO SCH (08:01)
[2021-07-10] MEDS: gabapentin 100mg capsule PO SCH ×3 (08:01→20:48)
[2021-07-10] MEDS: amiodarone 200mg tablet PO SCH (08:02)
--- NOTE | 2021-07-10 08:22 | NUR ---
Paged Shaunao PAGER ID: [phone] MESSAGE: [phone]. Анна Enrique. GI rec resume renal diet. ok? [phone]
[2021-07-10] MEDS ORDERED: EPOETIN ALFA-EPBX 20,000 UNIT/ML 1 ML MDV IV ONE (09:00)
[2021-07-10] MEDS ORDERED: medroxyprogesterone acet. 2.5mg tablet PO SCH (09:15)
[2021-07-10 11:00] VITALS: BP 114/68
--- NOTE | 2021-07-10 14:31 | NUR ---
BS 69, APPLE JUICE PROVIDED AND LUNCH TRAY ON ITS WAY, WILL CONTINUE TO MONITOR
[2021-07-10 15:00] VITALS: BP 128/64
--- NOTE | 2021-07-10 15:21 | NUR ---
blood sugar recheck 120 pt comfortable, provided sandwich, lunch tray still not here
--- NOTE | 2021-07-10 17:03 | NUR ---
Paged Dr Umana PAGER ID: [phone] MESSAGE: [phone]. Анна Enrique. Pt req Benadryl for itching. [place] [phone]
--- NOTE | 2021-07-10 18:19 | NUR ---
[place] documentation: I have reviewed and agree with all interventions, assessments performed and documented by NIKA Richey.
[2021-07-10 18:30] VITALS: BP 161/85
[2021-07-10] MEDS ORDERED: diphenhydrAMINE 25mg capsule PO PRN (19:15)
[2021-07-10 22:00] VITALS: BP 114/78
[2021-07-10] MEDS: temazepam 15mg capsule PO PRN (23:42)
[2021-07-11 02:00] VITALS: BP 104/68
[2021-07-11 06:00] VITALS: BP 108/74
[2021-07-11 06:48] LABS: HEMATOCRIT 24.1 % (35.0-45.0); HEMOGLOBIN 7.8 g/dl (12.0-16.0); MEAN CORPUSCULAR HEMOGLOBIN 30.4 PG (27.0-31.0); MEAN CORPUSCULAR HGB CONC 32.4 g/dL (33.0-36.5); MEAN CORPUSCULAR VOLUME 93.8 FL (78-98); PLATELET COUNT 192 X10'3 (140-440); RED BLOOD COUNT 2.57 X10'6 (4.20-5.60); RED CELL DISTRIBUTION WIDTH 19.6 % (11.5-14.5); WHITE BLOOD COUNT 6.6 X10'3 (4.5-11.0)
[2021-07-11] MEDS: amiodarone 200mg tablet PO SCH (08:34)
[2021-07-11] MEDS: loratadine 10mg tablet PO SCH (08:34)
[2021-07-11] MEDS: pantoprazole 40mg Tablet.DR PO SCH ×2 (08:35→19:35)
[2021-07-11] MEDS: folic acid/vitamin B complex w/vitamin C 0.8mg tablet PO SCH (08:36)
[2021-07-11] MEDS: gabapentin 100mg capsule PO SCH ×3 (08:36→21:16)
[2021-07-11] MEDS: metoprolol tartrate 25mg tablet PO SCH ×2 (08:36→19:35)
[2021-07-11] MEDS: medroxyprogesterone acet. 2.5mg tablet PO SCH (08:37)
[2021-07-11] MEDS: furosemide 40mg tablet PO SCH ×2 (08:50→19:35)
--- NOTE | 2021-07-11 09:54 | NUR ---
Per MD Umana, A1C 5.3 - ok to d/c ac/hs blood sugar
[2021-07-11 11:00] VITALS: BP 113/73
--- NOTE | 2021-07-11 11:03 | NUR ---
Initial: Pt admit for GIB with h/o ESRD on HD and T2DM, well controlled with A1c 5.3% per EMR. Pt s/p HD 07/08 and 07/10 with a total of 2920 mL fluid removed per I&O. Pt initially NPO though was advanced to renal diet 07/10, documented with average 44% PO intake first two meals however up to 100% PO intake at breakfast this morning, resulting in total average of 63% PO intake closely meeting estimated nutrient needs. LBM 07/10, no GI symptoms this morning per EMR. No nutrition intervention implemented at this time. Will continue to follow and make recommendations as appropriate pending further trends in PO intake. Recommendations: 1) Continue renal diet 2) Monitor need for ONS/additional protein 3) Bowel care per rx 4) Scaled weights with dialysis Addendum: 07/11/21 at [address] Amended: Links added.
[2021-07-11] MEDS ORDERED: normal saline 1000ml 100 ML IV PRN (12:30)
[2021-07-11 15:00] VITALS: BP 107/51
[2021-07-11 18:00] VITALS: BP 160/70
--- NOTE | 2021-07-11 18:23 | NUR ---
[place] documentation: I have reviewed and agree with all interventions, assessments performed and documented by NIKA Richey.
[2021-07-11] MEDS: temazepam 15mg capsule PO PRN (19:38)
[2021-07-11 23:00] VITALS: BP 130/70
[2021-07-12] VITALS (16 sets, daily range): BP systolic 88–130; BP diastolic 44–92
[2021-07-12 06:32] LABS: ALBUMIN 2.4 G/DL (3.4-5.0); ANION GAP 11 (8-16); BLOOD UREA NITROGEN 50 MG/DL (7-18); CHLORIDE 98 MMOL/L (99-107); CREATININE 4.99 MG/DL (0.40-0.90); GLUCOSE 125 MG/DL (70-104); POTASSIUM 5.1 MMOL/L (3.5-5.1); SODIUM 136 MMOL/L (135-145); TOTAL CARBON DIOXIDE 26.6 MMOL/L (24-32); eGFR 8 ML/MIN
[2021-07-12 06:39] LABS: HEMATOCRIT 22.4 % (35.0-45.0); HEMOGLOBIN 7.5 g/dl (12.0-16.0); MEAN CORPUSCULAR HEMOGLOBIN 31.4 PG (27.0-31.0); MEAN CORPUSCULAR HGB CONC 33.5 g/dL (33.0-36.5); MEAN CORPUSCULAR VOLUME 93.6 FL (78-98); MEAN PLATELET VOLUME 7.9 FL (7.4-10.4); PLATELET COUNT 191 X10'3 (140-440); RED BLOOD COUNT 2.39 X10'6 (4.20-5.60); RED CELL DISTRIBUTION WIDTH 19.3 % (11.5-14.5); WHITE BLOOD COUNT 6.7 X10'3 (4.5-11.0)
[2021-07-12] MEDS: metoprolol tartrate 25mg tablet PO SCH ×2 (08:00→21:43)
[2021-07-12] MEDS: furosemide 40mg tablet PO SCH ×2 (08:00→21:43)
[2021-07-12] MEDS: pantoprazole 40mg Tablet.DR PO SCH ×2 (09:07→21:43)
[2021-07-12] MEDS: folic acid/vitamin B complex w/vitamin C 0.8mg tablet PO SCH (09:08)
[2021-07-12] MEDS: loratadine 10mg tablet PO SCH (09:08)
[2021-07-12] MEDS: gabapentin 100mg capsule PO SCH ×3 (09:08→21:43)
[2021-07-12] MEDS: medroxyprogesterone acet. 2.5mg tablet PO SCH (09:09)
[2021-07-12] MEDS: amiodarone 200mg tablet PO SCH (09:12)
--- NOTE | 2021-07-12 10:34 | NUR ---
Per Dr Umana. Angio will take patient in for a mesenteric angiogram with embolization. HD will be delayed until after procedure per MD. Spoke with HD RN Mari [phone]. She needs for us to call her once pt is back from procedure as she is internal medicine nurse practitioner today.
[2021-07-12] MEDS ORDERED: heparin 1,000 UNITS/NS 500ml 500 ML ONE (14:21)
[2021-07-12] MEDS ORDERED: midazolam 1 mg/ML 2ml injection ONE (14:21)
[2021-07-12] MEDS ORDERED: LIDOCAINE 1% w/preservative (10 MG/ML) inj. 10mL VIAL ONE (14:21)
[2021-07-12] MEDS ORDERED: fentaNYL/PF 50MCG/1 ML 2ML syringe ONE (14:21)
[2021-07-12] MEDS ORDERED: iohexol 300mg/ml 100ml inj. ONE ×2 (14:22→15:45)
--- NOTE | 2021-07-12 14:57 | NUR ---
Patient taken in bed for procedure at 1445
--- NOTE | 2021-07-12 17:15 | NUR ---
Patient received from IR. Procedure performed: mesenteric angiography of emperic embolization of the GDA. Mynx closure device to right groin. Dressing CDI. Pt is to lay flat for 4 hours to prevent bleeding and/or hematoma. Pt verbalized understanding.
--- NOTE | 2021-07-12 18:01 | NUR ---
[place] documentation: I have reviewed and agree with all interventions, assessments performed and documented by NIKA Richey II.
[2021-07-12] MEDS: temazepam 15mg capsule PO PRN (21:43)
--- NOTE | 2021-07-12 23:54 | NUR ---
RN in to assess pt. BP 88/44. drowsy but easily arousable. A&Ox3, confused/forgetful at times. Pt denies lightheadedness or dizziness. Small amount dark/black liquid noted. pt s/p misenteric angiography of emperic emobolization of the GDA, right groin access CDI. pt denies any pain. full sensation throughout. pt s/p dialysis today removed 1L. recieved lopressor and lasix. MD Campbell called and made aware. per awaiting orders once chart reviewed. pt call light within reach. cycling BPs. frequent rounding. xavi Addendum: 07/13/21 at 0057 by Valorie Zhao Traveler RN MD Campbell placed orders to transfuse 1 unit of blood. Blood bank called for type and screen. Lab collected. pt remains A&Ox3, denies any symptoms of dizziness/lightheadedness. BP improved to 98/59. Right groin site remains CDI. xavi
[2021-07-13] VITALS (15 sets, daily range): BP systolic 98–111; BP diastolic 49–73
--- NOTE | 2021-07-13 06:30 | NUR ---
Patient in room PCU 3017. I have received report from JAMAAL Ruff and had the opportunity to ask questions and assume patient care.
[2021-07-13 07:21] LABS: HEMATOCRIT 28.5 % (35.0-45.0); HEMOGLOBIN 9.6 g/dl (12.0-16.0); MEAN CORPUSCULAR HEMOGLOBIN 31.2 PG (27.0-31.0); MEAN CORPUSCULAR HGB CONC 33.7 g/dL (33.0-36.5); MEAN CORPUSCULAR VOLUME 92.7 FL (78-98); MEAN PLATELET VOLUME 7.9 FL (7.4-10.4); PLATELET COUNT 185 X10'3 (140-440); RED BLOOD COUNT 3.08 X10'6 (4.20-5.60); RED CELL DISTRIBUTION WIDTH 18.6 % (11.5-14.5); WHITE BLOOD COUNT 7.7 X10'3 (4.5-11.0)
[2021-07-13 07:31] LABS: ALBUMIN 2.6 G/DL (3.4-5.0); ANION GAP 9 (8-16); BLOOD UREA NITROGEN 24 MG/DL (7-18); BUN/CREATININE RATIO 7.5 (6.6-38.0); CALCIUM 8.4 MG/DL (8.5-10.1); CHLORIDE 101 MMOL/L (99-107); CREATININE 3.19 MG/DL (0.40-0.90); GLUCOSE 128 MG/DL (70-104); POTASSIUM 4.2 MMOL/L (3.5-5.1); SODIUM 139 MMOL/L (135-145); TOTAL CARBON DIOXIDE 29.4 MMOL/L (24-32); eGFR 14 ML/MIN
[2021-07-13] MEDS: metoprolol tartrate 25mg tablet PO SCH ×2 (08:00→20:19)
[2021-07-13] MEDS: furosemide 40mg tablet PO SCH ×3 (08:00→21:48)
[2021-07-13] MEDS: amiodarone 200mg tablet PO SCH ×2 (08:00→12:18)
[2021-07-13] MEDS: loratadine 10mg tablet PO SCH (09:34)
[2021-07-13] MEDS: medroxyprogesterone acet. 2.5mg tablet PO SCH (09:34)
--- NOTE | 2021-07-13 09:34 | NUR ---
Paged hospitalist: PAGER ID: [phone] MESSAGE: Room: 3017B: Marielalisa: The pt's BP is 98/56 (69) with a HR of 92. I'm holding the pt's Lasix, metoprolol, and amiodarone. JAMAAL Lund 1164
[2021-07-13] MEDS: gabapentin 100mg capsule PO SCH ×3 (09:35→20:19)
[2021-07-13] MEDS: folic acid/vitamin B complex w/vitamin C 0.8mg tablet PO SCH (09:35)
[2021-07-13] MEDS: pantoprazole 40mg Tablet.DR PO SCH (09:36)
[2021-07-13] MEDS: pantoprazole 40MG/NS 100ML BAG 100 ML IV SCH ×3 (12:16→21:48)
--- NOTE | 2021-07-13 18:29 | NUR ---
Problems reprioritized. Patient report given, questions answered & plan of care reviewed with JAMAAL Ruff.
[2021-07-13] MEDS: temazepam 15mg capsule PO PRN (20:19)
[2021-07-14 02:30] VITALS: BP 107/67
[2021-07-14] MEDS: pantoprazole 40MG/NS 100ML BAG 100 ML IV SCH ×5 (02:37→20:40)
[2021-07-14 06:00] VITALS: BP 103/71
--- NOTE | 2021-07-14 06:30 | NUR ---
Patient in room PCU 3017. I have received report from JAMAAL Ruff and had the opportunity to ask questions and assume patient care.
[2021-07-14 07:03] LABS: HEMATOCRIT 28.7 % (35.0-45.0); HEMOGLOBIN 9.4 g/dl (12.0-16.0); MEAN CORPUSCULAR HEMOGLOBIN 30.4 PG (27.0-31.0); MEAN CORPUSCULAR HGB CONC 32.7 g/dL (33.0-36.5); MEAN CORPUSCULAR VOLUME 92.9 FL (78-98); MEAN PLATELET VOLUME 7.9 FL (7.4-10.4); PLATELET COUNT 151 X10'3 (140-440); RED CELL DISTRIBUTION WIDTH 19.5 % (11.5-14.5)
[2021-07-14 07:18] LABS: ALBUMIN 2.5 G/DL (3.4-5.0); ANION GAP 9 (8-16); BLOOD UREA NITROGEN 35 MG/DL (7-18); BUN/CREATININE RATIO 7.4 (6.6-38.0); CALCIUM 8.6 MG/DL (8.5-10.1); CHLORIDE 100 MMOL/L (99-107); CREATININE 4.71 MG/DL (0.40-0.90); GLUCOSE 125 MG/DL (70-104); POTASSIUM 4.3 MMOL/L (3.5-5.1); SODIUM 134 MMOL/L (135-145); TOTAL CARBON DIOXIDE 25.1 MMOL/L (24-32); eGFR 9 ML/MIN
[2021-07-14] MEDS: metoprolol tartrate 25mg tablet PO SCH ×2 (08:00→20:37)
[2021-07-14] MEDS: furosemide 40mg tablet PO SCH ×3 (08:00→20:38)
[2021-07-14] MEDS: amiodarone 200mg tablet PO SCH ×2 (08:00→10:05)
[2021-07-14] MEDS: folic acid/vitamin B complex w/vitamin C 0.8mg tablet PO SCH (08:28)
[2021-07-14] MEDS: gabapentin 100mg capsule PO SCH ×3 (08:28→20:38)
[2021-07-14] MEDS: medroxyprogesterone acet. 2.5mg tablet PO SCH (08:28)
[2021-07-14] MEDS: loratadine 10mg tablet PO SCH (08:29)
[2021-07-14 11:00] VITALS: BP 110/64
[2021-07-14 15:00] VITALS: BP 114/74
[2021-07-14 18:00] VITALS: BP 123/63
[2021-07-14] MEDS: temazepam 15mg capsule PO PRN (21:16)
[2021-07-14 22:00] VITALS: BP 116/69
[2021-07-15] MEDS: pantoprazole 40MG/NS 100ML BAG 100 ML IV SCH ×3 (01:59→12:13)
[2021-07-15 02:00] VITALS: BP 116/67
[2021-07-15 06:00] VITALS: BP 101/59
[2021-07-15 06:27] LABS: ALBUMIN 2.2 G/DL (3.4-5.0); ANION GAP 12 (8-16); BLOOD UREA NITROGEN 44 MG/DL (7-18); BUN/CREATININE RATIO 7.4 (6.6-38.0); CALCIUM 8.1 MG/DL (8.5-10.1); CHLORIDE 100 MMOL/L (99-107); CREATININE 5.94 MG/DL (0.40-0.90); GLUCOSE 107 MG/DL (70-104); POTASSIUM 4.9 MMOL/L (3.5-5.1); SODIUM 134 MMOL/L (135-145); TOTAL CARBON DIOXIDE 22.3 MMOL/L (24-32); eGFR 7 ML/MIN
[2021-07-15 06:46] LABS: MEAN PLATELET VOLUME 7.9 FL (7.4-10.4); PLATELET COUNT 139 X10'3 (140-440); WHITE BLOOD COUNT 7.6 X10'3 (4.5-11.0)
[2021-07-15 07:19] LABS: HEMATOCRIT 26.4 % (35.0-45.0); MEAN CORPUSCULAR HEMOGLOBIN 31.3 PG (27.0-31.0); RED BLOOD COUNT 2.87 X10'6 (4.20-5.60); RED CELL DISTRIBUTION WIDTH 17.7 % (11.5-14.5)
[2021-07-15] MEDS: amiodarone 200mg tablet PO SCH (08:00)
[2021-07-15] MEDS: furosemide 40mg tablet PO SCH ×2 (08:00→19:56)
[2021-07-15] MEDS: metoprolol tartrate 25mg tablet PO SCH ×2 (08:00→19:56)
--- NOTE | 2021-07-15 08:57 | NUR ---
Reassessment: Pt continues on Renal diet w/ avg intake 75-100% of meals meeting est nutrient needs at this time. Continues on HD, last treatment 07/12 w/ 1L out per documentation. Pt noted to be periodically confused. LBM 07/14. No nutrition intervention implemented at this time, will continue to monitor. Recommendations: 1) Continue renal diet 2) Monitor need for ONS/additional protein 3) Bowel care per rx 4) Scaled weights with dialysis Addendum: 07/15/21 at [address] Amended: Links added.
[2021-07-15] MEDS: folic acid/vitamin B complex w/vitamin C 0.8mg tablet PO SCH (09:02)
[2021-07-15] MEDS: medroxyprogesterone acet. 2.5mg tablet PO SCH (09:04)
[2021-07-15] MEDS: loratadine 10mg tablet PO SCH (09:04)
[2021-07-15] MEDS: gabapentin 100mg capsule PO SCH ×3 (09:04→19:56)
[2021-07-15] MEDS ORDERED: normal saline 1000ml 100 ML IV PRN (10:35)
[2021-07-15] MEDS ORDERED: normal saline 1000ml 250 ML IV PRN (10:35)
[2021-07-15] MEDS ORDERED: EPOETIN ALFA-EPBX 20,000 UNIT/ML 1 ML MDV IV ONE (10:35)
[2021-07-15 11:00] VITALS: BP 101/61
[2021-07-15 15:00] VITALS: BP 116/77
[2021-07-15 18:00] VITALS: BP 128/82
--- NOTE | 2021-07-15 18:08 | NUR ---
Problems reprioritized. Patient report given, questions answered & plan of care reviewed with JAMAAL Ruff.
--- NOTE | 2021-07-15 18:08 | NUR ---
Orientation documentation: I have reviewed and agree with all interventions, assessments performed and documented by NIKA Dominguez.
[2021-07-15] MEDS: pantoprazole 40mg Tablet.DR PO SCH (19:56)
[2021-07-15] MEDS: temazepam 15mg capsule PO PRN (21:26)
[2021-07-15 22:00] VITALS: BP 99/64
[2021-07-16 02:00] VITALS: BP 91/63
[2021-07-16 04:03] VITALS: BP 115/80
[2021-07-16 06:25] LABS: HEMATOCRIT 26.4 % (35.0-45.0); HEMOGLOBIN 8.7 g/dl (12.0-16.0); MEAN CORPUSCULAR VOLUME 94.1 FL (78-98); MEAN PLATELET VOLUME 8.4 FL (7.4-10.4); PLATELET COUNT 152 X10'3 (140-440); RED CELL DISTRIBUTION WIDTH 18.1 % (11.5-14.5); WHITE BLOOD COUNT 7.9 X10'3 (4.5-11.0)
[2021-07-16 06:30] VITALS: BP 101/63
[2021-07-16 06:36] LABS: ALBUMIN 2.4 G/DL (3.4-5.0); ANION GAP 10 (8-16); BLOOD UREA NITROGEN 28 MG/DL (7-18); BUN/CREATININE RATIO 6.6 (6.6-38.0); CALCIUM 8.6 MG/DL (8.5-10.1); CHLORIDE 100 MMOL/L (99-107); CREATININE 4.27 MG/DL (0.40-0.90); GLUCOSE 108 MG/DL (70-104); POTASSIUM 4.5 MMOL/L (3.5-5.1); SODIUM 137 MMOL/L (135-145); TOTAL CARBON DIOXIDE 27.3 MMOL/L (24-32); eGFR 10 ML/MIN
[2021-07-16 09:12] VITALS: BP 101/59
[2021-07-16 09:16] VITALS: BP 98/57
[2021-07-16] MEDS: loratadine 10mg tablet PO SCH (09:18)
[2021-07-16] MEDS: folic acid/vitamin B complex w/vitamin C 0.8mg tablet PO SCH (09:18)
[2021-07-16] MEDS: pantoprazole 40mg Tablet.DR PO SCH (09:18)
[2021-07-16] MEDS: gabapentin 100mg capsule PO SCH (09:18)
[2021-07-16] MEDS: amiodarone 200mg tablet PO SCH (09:19)
--- NOTE | 2021-07-16 09:58 | NUR ---
0958 07/16/2021 Provider notification sent: Room 3017/B Анна Enrique, BP 98/57 HR 80, Held metoprolol 75 mg and Lasix 80 mg this AM due to low BP.
[2021-07-16 11:00] VITALS: BP 105/52
[2021-07-17 16:40] LABS: HBSAG SCREEN Negative (Negative)
== END 2021-07-16 14:50 | DRG 981 ==
LOC: ER 09:31 → ED HOLD 13:16 → ICU 2S 16:48 → PCU 3S 07-09 13:15
PROVIDERS: ADMIT Internal Medicine Critical Care Medicine; ATTEND Internal Medicine Critical Care Medicine
PROC: 30233N1 Transfusion of Nonautologous Red Blood Cells into Peripheral Vein, Percutaneous Approach (ICD-10-PCS; 2021-07-08)
PROC: 5A1D70Z Performance of Urinary Filtration, Intermittent, Less than 6 Hours Per Day (ICD-10-PCS; 2021-07-08)
PROC: 5A1D70Z Performance of Urinary Filtration, Intermittent, Less than 6 Hours Per Day (ICD-10-PCS; 2021-07-10)
PROC: CD171ZZ Planar Nuclear Medicine Imaging of Gastrointestinal Tract using Technetium 99m (Tc-99m) (ICD-10-PCS; 2021-07-11)
PROC: 04V33DZ Restriction of Hepatic Artery with Intraluminal Device, Percutaneous Approach (ICD-10-PCS; principal; 2021-07-12)
PROC: B4141ZZ Fluoroscopy of Superior Mesenteric Artery using Low Osmolar Contrast (ICD-10-PCS; 2021-07-12)
PROC: B4131ZZ Fluoroscopy of Splenic Arteries using Low Osmolar Contrast (ICD-10-PCS; 2021-07-12)
PROC: B41F1ZZ Fluoroscopy of Right Lower Extremity Arteries using Low Osmolar Contrast (ICD-10-PCS; 2021-07-12)
PROC: B4121ZZ Fluoroscopy of Hepatic Artery using Low Osmolar Contrast (ICD-10-PCS; 2021-07-12)
PROC: 5A1D70Z Performance of Urinary Filtration, Intermittent, Less than 6 Hours Per Day (ICD-10-PCS; 2021-07-12)
PROC: 0DB68ZX Excision of Stomach, Via Natural or Artificial Opening Endoscopic, Diagnostic (ICD-10-PCS; 2021-07-12)
DX: K92.1 Melena (principal); R57.1 Hypovolemic shock; N18.6 End stage renal disease; D62 Acute posthemorrhagic anemia; I13.2 Hypertensive heart and chronic kidney disease with heart failure and with stage 5 chronic kidney disease, or end stage renal disease; E87.1 Hypo-osmolality and hyponatremia; I48.20 Chronic atrial fibrillation, unspecified; I50.32 Chronic diastolic (congestive) heart failure; Z20.822 Contact with and (suspected) exposure to COVID-19; E11.22 Type 2 diabetes mellitus with diabetic chronic kidney disease; E87.5 Hyperkalemia; J44.9 Chronic obstructive pulmonary disease, unspecified; Z99.2 Dependence on renal dialysis; Z80.52 Family history of malignant neoplasm of bladder; Z82.49 Family history of ischemic heart disease and other diseases of the circulatory system; Z79.899 Other long term (current) drug therapy
CPT/HCPCS: 36160; 36245; 36415; 36430; 37244; 43239; 71045; 75625; 76937; 77001; 78278; 80048; 80053; 82948; 84132; 84145; 85008; 85025; 85027; 85610; 85730; 86885; 86900; 86901; 86920; 87081; 87340; 87635; 88305; 90935; 93005; 96365; 96375; 97116; 97162; 97530; 99152; 99153; 99285; A4620; A6213; A9560; C1760; C1769; C1894; C9113; G0257; G0378; J0610; J1644; J1815; J2250; J3010; J3490; J7040; J7168; P9016; Q0163; Q4081; Q9967

== ENCOUNTER 2021-07-28 08:35 | Emergency (ER) | payer MEDICARE, OTHER ==
[~2021-07-28] VITALS: Ht 154.9 cm; Wt 55.4 kg
[~2021-07-28 08:35] MED LIST changes: +ACET650T11 PO; -APIX2.5T PO; +BISA10SU11 RC; -CARCD120C PO; +FOLI0.8T22 PO; -FOLI0.8T7 PO; +INSU100V43 SQ; +LOP12.5T PO; +LORA10TA7 PO; -METO50TA16 PO; +NA P133E4 RC; +OMEP20TA43 PO; +ONDA-103 PO; -PANT40TA54 PO; +RIVA15TA PO; +TEMA15CA5 PO
--- NOTE | 2021-07-28 09:16 | NUR ---
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
[2021-07-28 09:30] LABS: BASOPHILS # (AUTO) 0.1 X10'3 (0-0.2); BASOPHILS % (AUTO) 1.1 % (0-1); EOSINOPHILS # (AUTO) 0.2 X10'3 (0-0.9); EOSINOPHILS % (AUTO) 2.5 % (0-6); HEMATOCRIT 22.6 % (35.0-45.0); HEMOGLOBIN 7.4 g/dl (12.0-16.0); LYMPHOCYTES # (AUTO) 0.4 X10'3 (1.1-4.8); LYMPHOCYTES % (AUTO) 4.4 % (21-51); MEAN CORPUSCULAR HGB CONC 32.7 g/dL (33.0-36.5); MEAN CORPUSCULAR VOLUME 91.7 FL (78-98); MONOCYTES # (AUTO) 0.5 X10'3 (0-0.9); NEUTROPHILS # (AUTO) 7.9 X10'3 (1.8-7.7); PLATELET COUNT 152 X10'3 (140-440); RED BLOOD COUNT 2.46 X10'6 (4.20-5.60); RED CELL DISTRIBUTION WIDTH 17.5 % (11.5-14.5); WHITE BLOOD COUNT 9.1 X10'3 (4.5-11.0)
[2021-07-28 09:42] LABS: APTT 36 SECONDS (22-32)
[2021-07-28 09:44] LABS: ALANINE AMINOTRANSFERASE 26 U/L (12-78); ALBUMIN 2.6 G/DL (3.4-5.0); ALBUMIN/GLOBULIN RATIO 0.6 (1.1-1.5); ALKALINE PHOSPHATASE 83 IU/L (46-116); ANION GAP 13 (8-16); ASPARTATE AMINO TRANSFERASE 14 U/L (10-37); BILIRUBIN,TOTAL 0.5 MG/DL (0.1-1.0); BLOOD UREA NITROGEN 56 MG/DL (7-18); BUN/CREATININE RATIO 8.7 (6.6-38.0); CALCIUM 8.5 MG/DL (8.5-10.1); CHLORIDE 99 MMOL/L (99-107); CREATININE 6.46 MG/DL (0.40-0.90); GLUCOSE 148 MG/DL (70-104); LIPASE 205 U/L (73-393); MAGNESIUM 1.8 MG/DL (1.5-2.4); POTASSIUM 4.9 MMOL/L (3.5-5.1); SODIUM 136 MMOL/L (135-145); TOTAL CARBON DIOXIDE 24.5 MMOL/L (24-32); TOTAL PROTEIN 6.8 G/DL (6.4-8.2); eGFR 6 ML/MIN
[2021-07-28] MEDS ORDERED: NORMAL SALINE IV ONE ×2 (11:00→11:23)
[2021-07-28] MEDS ORDERED: DESMOPRESSIN IV ONE ×2 (11:00→11:23)
[2021-07-28 11:16] VITALS: BP 130/47
[2021-07-28 11:34] VITALS: BP 135/52
[2021-07-28 12:34] VITALS: BP 127/55
[2021-07-28 13:20] VITALS: BP 129/62
--- NOTE | 2021-07-28 13:34 | NUR ---
One unit PRBC infused at this time per MD order. Per Dr Neal patient to receive only 1 unit PRBC at this time to prevent fluid over load.
[2021-07-28 17:59] LABS: HEMOGLOBIN 8.9 g/dl (12.0-16.0); MEAN CORPUSCULAR HEMOGLOBIN 29.7 PG (27.0-31.0); MEAN CORPUSCULAR HGB CONC 32.9 g/dL (33.0-36.5); MEAN CORPUSCULAR VOLUME 90.2 FL (78-98); MEAN PLATELET VOLUME 8.3 FL (7.4-10.4); PLATELET COUNT 141 X10'3 (140-440); RED BLOOD COUNT 2.99 X10'6 (4.20-5.60); RED CELL DISTRIBUTION WIDTH 16.7 % (11.5-14.5); WHITE BLOOD COUNT 7.6 X10'3 (4.5-11.0)
[2021-07-29] VITALS (12 sets, daily range): BP systolic 117–160; BP diastolic 43–97
[2021-07-29] MEDS ORDERED: dextrose 50%-water 50ml dispensing syringe IV PRN ×2 (02:15)
[2021-07-29] MEDS ORDERED: morphine 2 MG/ML inj. syringe IV PRN ×2 (02:15)
[2021-07-29] MEDS ORDERED: MESSAGE TO PHARMACY PO ONE (02:15)
[2021-07-29] MEDS ORDERED: ondansetron/PF 4mg/2ml inj IV PRN (02:15)
[2021-07-29] MEDS ORDERED: mag hydrox/Alum hydrox/simeth 30ml oral suspension PO PRN (02:15)
[2021-07-29] MEDS ORDERED: DEXTROSE 15 GM of carb/4 tabs (each vial/BOTTLE has 4 tablets) PO PRN ×2 (02:15)
[2021-07-29] MEDS ORDERED: acetaminophen 325mg tablet PO PRN ×2 (02:15)
[2021-07-29] MEDS ORDERED: glucagon, human recombinant 1mg kit SUBCUT PRN (02:15)
[2021-07-29] MEDS ORDERED: insulin Lispro (HumaLOG) vial - multi-dose SQ SCH (02:15)
[2021-07-29] MEDS ORDERED: magnesium hydroxide 30ml (MOM) UD suspension PO PRN (02:15)
[2021-07-29] MEDS ORDERED: HYDROcodone/acetaminophen 5mg/325mg tablet PO PRN (02:15)
--- NOTE | 2021-07-29 02:27 | NUR ---
Patient had an A1C in June
[2021-07-29] MEDS ORDERED: pantoprazole 40MG/NS 100ML BAG 100 ML IV STA (04:04)
--- NOTE | 2021-07-29 05:57 | NUR ---
DR ling called to clarify his admission order. anuradha said that he would cancel the admission order and that the client is no longer his patient.
--- NOTE | 2021-07-29 07:58 | NUR ---
upper endoscopy by Dr. Martini around [address] Rae.
--- NOTE | 2021-07-29 07:59 | NUR ---
patient is back as an ER patient per Dr. Buckley.Extractions Technologist at bedside.
[2021-07-29] MEDS ORDERED: docusate sod 100mg capsule PO SCH (08:00)
[2021-07-29 08:17] LABS: BASOPHILS # (AUTO) 0.1 X10'3 (0-0.2); BASOPHILS % (AUTO) 1.2 % (0-1); EOSINOPHILS # (AUTO) 0.3 X10'3 (0-0.9); HEMATOCRIT 24.3 % (35.0-45.0); HEMOGLOBIN 8.1 g/dl (12.0-16.0); LYMPHOCYTES # (AUTO) 0.4 X10'3 (1.1-4.8); LYMPHOCYTES % (AUTO) 5.1 % (21-51); MEAN CORPUSCULAR HEMOGLOBIN 29.9 PG (27.0-31.0); MEAN CORPUSCULAR HGB CONC 33.3 g/dL (33.0-36.5); MEAN CORPUSCULAR VOLUME 89.6 FL (78-98); MEAN PLATELET VOLUME 8.7 FL (7.4-10.4); MONOCYTES # (AUTO) 0.5 X10'3 (0-0.9); MONOCYTES % (AUTO) 6.4 % (2-12); NEUTROPHILS % (AUTO) 83.3 % (42-75); PLATELET COUNT 138 X10'3 (140-440); RED BLOOD COUNT 2.71 X10'6 (4.20-5.60); RED CELL DISTRIBUTION WIDTH 17.5 % (11.5-14.5); WHITE BLOOD COUNT 8.4 X10'3 (4.5-11.0)
[2021-07-29 08:27] LABS: ALANINE AMINOTRANSFERASE 25 U/L (12-78); ALBUMIN 2.6 G/DL (3.4-5.0); ALBUMIN/GLOBULIN RATIO 0.6 (1.1-1.5); ALKALINE PHOSPHATASE 80 IU/L (46-116); ANION GAP 12 (8-16); ASPARTATE AMINO TRANSFERASE 16 U/L (10-37); BILIRUBIN,TOTAL 0.5 MG/DL (0.1-1.0); BLOOD UREA NITROGEN 69 MG/DL (7-18); BUN/CREATININE RATIO 8.7 (6.6-38.0); CALCIUM 8.8 MG/DL (8.5-10.1); CHLORIDE 100 MMOL/L (99-107); CREATININE 7.94 MG/DL (0.40-0.90); GLUCOSE 109 MG/DL (70-104); POTASSIUM 5.9 MMOL/L (3.5-5.1); SODIUM 138 MMOL/L (135-145); TOTAL CARBON DIOXIDE 26.3 MMOL/L (24-32); TOTAL PROTEIN 6.7 G/DL (6.4-8.2); eGFR 5 ML/MIN
[2021-07-29] MEDS ORDERED: fentaNYL/PF 50MCG/1 ML 2ML syringe ONE (08:47)
[2021-07-29] MEDS ORDERED: diphenhydrAMINE 50 mg/ml inj ONE (08:47)
[2021-07-29] MEDS ORDERED: MIDAZolam 1 MG/ML 5ML VIAL ONE (08:47)
--- NOTE | 2021-07-29 10:30 | NUR ---
pt back from GI, clear liquid diet and f/c needed.
[2021-07-29 11:04] LABS: CLARITY,URINE CLOUDY (Clear); COLOR,URINE YELLOW (Yellow); GLUCOSE, URINE 100 mg/dl (Neg); KETONES,URINE NEGATIVE (Neg); LEUKOCYTE ESTERASE ,URINE LARGE (Neg); NITRITES, URINE NEGATIVE (Neg); OCCULT BLOOD,URINE SMALL (Neg); PROTEIN,URINE 100 mg/dl (Neg); UROBILINOGEN,URINE 0.2 E.U/dL (0.2-1.0)
[2021-07-29 11:07] LABS: UA COLLECTION TYPE STRAIGHT CATH
[2021-07-29 11:14] LABS: SQUAMOUS EPITHELIAL CELL,UR FEW /LPF (FEW); WBC,URINE TNTC /HPF (0-4)
[2021-07-29 11:15] LABS: BACTERIA,URINE 2+ /HPF (Neg); RBC,URINE 0-2 /HPF (0-2); WBC CLUMPS,URINE MANY /HPF (NEGATIVE)
--- NOTE | 2021-07-29 11:30 | NUR ---
short period of danny 38bpm, pt asymptomatic,repeat ekg.Dr. Rae aware.
[2021-07-29 12:42] LABS: BASOPHILS # (AUTO) 0.1 X10'3 (0-0.2); BASOPHILS % (AUTO) 1.1 % (0-1); EOSINOPHILS # (AUTO) 0.1 X10'3 (0-0.9); EOSINOPHILS % (AUTO) 2.2 % (0-6); LYMPHOCYTES # (AUTO) 0.2 X10'3 (1.1-4.8); LYMPHOCYTES % (AUTO) 3.7 % (21-51); MEAN CORPUSCULAR HEMOGLOBIN 29.8 PG (27.0-31.0); MEAN CORPUSCULAR HGB CONC 32.4 g/dL (33.0-36.5); MEAN CORPUSCULAR VOLUME 91.8 FL (78-98); MEAN PLATELET VOLUME 8.1 FL (7.4-10.4); MONOCYTES # (AUTO) 0.4 X10'3 (0-0.9); MONOCYTES % (AUTO) 5.7 % (2-12); NEUTROPHILS # (AUTO) 5.4 X10'3 (1.8-7.7); NEUTROPHILS % (AUTO) 87.3 % (42-75); PLATELET COUNT 99 X10'3 (140-440); RED BLOOD COUNT 1.89 X10'6 (4.20-5.60); RED CELL DISTRIBUTION WIDTH 17.8 % (11.5-14.5); WHITE BLOOD COUNT 6.2 X10'3 (4.5-11.0)
[2021-07-29 12:54] LABS: HEMATOCRIT 17.4 % (35.0-45.0); HEMOGLOBIN 5.6 g/dl (12.0-16.0)
[2021-07-29] MEDS ORDERED: EPOETIN ALFA-EPBX 20,000 UNIT/ML 1 ML MDV IV ONE (13:00)
[2021-07-29] MEDS ORDERED: albumin (human) 25% 100ml IV 100 ML IV PRN (13:00)
--- NOTE | 2021-07-29 13:15 | NUR ---
DR. VINNY JACOB SPEAKING TO GLENYS ON PHONE. PT HAS BEEN GIVING MORPHINE FOR COMFORT, STILL ON OXYGEN. NOTIFIED JAMAAL JOHNSTON
[2021-07-29] MEDS ORDERED: NORMAL SALINE IV ONE (13:45)
[2021-07-29] MEDS ORDERED: DESMOPRESSIN IV ONE (13:45)
--- NOTE | 2021-07-29 14:20 | NUR ---
blood transfusion re started.piv infiltrated.
--- NOTE | 2021-07-29 14:59 | NUR ---
PATIENT WENT TO PCU FOR DIALYSIS.
--- NOTE | 2021-07-29 15:13 | NUR ---
PATIENT ACCEPTED IN [facility].
--- NOTE | 2021-07-29 15:41 | NUR ---
ASSISTING RN WITH PT CARE, PT IS RESTING QUIETLY ON ER GURNEY, RESP EVEN, UNLABORED, SKIN IS PALE, DRY, IV TO RT FOREARM IS PATENT AND CLEAR, MEDICATION INFUSING PER MD ORDER
[2021-07-29] MEDS: pantoprazole 40MG/NS 100ML BAG 100 ML IV SCH ×2 (16:36→20:21)
--- NOTE | 2021-07-29 16:39 | NUR ---
pt continues to rest quietly on PCU floor, dialysis nurse at bedside, protonix gtt started per order, IV to rt forearm is patent and clear
--- NOTE | 2021-07-29 18:58 | NUR ---
brought pt back to ER, will arrange for transport to [place] now, report to primary nurse, pt is eating dinner, milvia well, no n/v
--- NOTE | 2021-07-29 19:01 | NUR ---
H &H ordered per protocol after 2nd unit of PRBC
--- NOTE | 2021-07-29 19:11 | NUR ---
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
[2021-07-29 20:05] LABS: HEMATOCRIT 32.8 % (35.0-45.0); HEMOGLOBIN 11.1 g/dl (12.0-16.0); MEAN CORPUSCULAR HEMOGLOBIN 30.4 PG (27.0-31.0); MEAN CORPUSCULAR VOLUME 89.4 FL (78-98); MEAN PLATELET VOLUME 8.3 FL (7.4-10.4); PLATELET COUNT 130 X10'3 (140-440); RED BLOOD COUNT 3.67 X10'6 (4.20-5.60); RED CELL DISTRIBUTION WIDTH 16.5 % (11.5-14.5); WHITE BLOOD COUNT 7.3 X10'3 (4.5-11.0)
[2021-07-29] MEDS ORDERED: gabapentin 100mg capsule PO SCH (21:00)
[2021-07-29] MEDS ORDERED: insulin glargine (Lantus) pen - multi-dose SQ SCH (21:00)
== END 2021-07-30 01:47 ==
LOC: ER 08:36 → UNDOADMIN 07-29 02:18 → ED HOLD 07-29 02:18 → UNDODISIN 07-29 20:30 → ER 07-30 01:47
DX: D50.0 Iron deficiency anemia secondary to blood loss (chronic) (principal); K92.1 Melena; E87.6 Hypokalemia; K92.2 Gastrointestinal hemorrhage, unspecified; I48.91 Unspecified atrial fibrillation; I13.2 Hypertensive heart and chronic kidney disease with heart failure and with stage 5 chronic kidney disease, or end stage renal disease; E11.22 Type 2 diabetes mellitus with diabetic chronic kidney disease; N18.6 End stage renal disease; Z99.2 Dependence on renal dialysis; Z98.890 Other specified postprocedural states; Z79.899 Other long term (current) drug therapy
CPT/HCPCS: 36415; 36430; 43239; 71045; 80053; 81001; 83690; 83735; 85025; 85027; 85610; 85730; 86885; 86900; 86901; 86920; 87088; 93005; 96365; 96366; 96375; 99291; C9113; G0257; J1200; J2250; J2597; J3010; J3490; J7030; P9016; Q4081; Z7512; 99152; 99153; A4620; G0378; J1815

== ENCOUNTER 2021-08-29 09:14 | Day surgery (SDC) | payer MEDICARE, OTHER ==
[~2021-08-29] VITALS: Ht 154.9 cm; Wt 49.9 kg
[2021-08-29] VITALS (9 sets, daily range): BP systolic 133–157; BP diastolic 57–76
[~2021-08-29 09:14] MED LIST changes: -ACET650T11 PO; -BISA10SU11 RC; -FOLI0.8T22 PO; -INSU100V43 SQ; -LORA10TA7 PO; -NA P133E4 RC; -ONDA-103 PO
[2021-08-29] MEDS ORDERED: normal saline 1000ml 1,000 ML IV PRN (09:40)
[2021-08-29] MEDS ORDERED: APIX2.5T PO (10:09)
[2021-08-29] MEDS ORDERED: HYDR-4069 PO (10:10)
[2021-08-29] MEDS ORDERED: ATOR20TA66 PO (10:12)
[2021-08-29] MEDS ORDERED: AMLO5TAB PO (10:14)
[2021-08-29] MEDS ORDERED: LANT10005 PO (10:14)
[2021-08-29] MEDS ORDERED: fentaNYL/PF 50MCG/1 ML 2ML syringe ONE (10:17)
[2021-08-29] MEDS ORDERED: midazolam 1 mg/ML 2ml injection ONE (10:17)
[2021-08-29] MEDS ORDERED: LIDOcaine 1%/PF 5ML 10 MG/ML VIAL ONE (10:17)
[2021-08-29 10:41] LABS: BASOPHILS # (AUTO) 0.1 X10'3 (0-0.2); BASOPHILS % (AUTO) 1.3 % (0-1); EOSINOPHILS # (AUTO) 0.3 X10'3 (0-0.9); EOSINOPHILS % (AUTO) 4.2 % (0-6); HEMATOCRIT 25.5 % (35.0-45.0); HEMOGLOBIN 8.2 g/dl (12.0-16.0); LYMPHOCYTES # (AUTO) 0.3 X10'3 (1.1-4.8); LYMPHOCYTES % (AUTO) 4.1 % (21-51); MEAN CORPUSCULAR VOLUME 90.6 FL (78-98); MEAN PLATELET VOLUME 8.2 FL (7.4-10.4); MONOCYTES # (AUTO) 0.6 X10'3 (0-0.9); NEUTROPHILS # (AUTO) 5.3 X10'3 (1.8-7.7); NEUTROPHILS % (AUTO) 81.4 % (42-75); PLATELET COUNT 196 X10'3 (140-440); RED BLOOD COUNT 2.81 X10'6 (4.20-5.60); RED CELL DISTRIBUTION WIDTH 19.4 % (11.5-14.5); WHITE BLOOD COUNT 6.5 X10'3 (4.5-11.0)
[2021-08-29 10:56] LABS: ALBUMIN 2.7 G/DL (3.4-5.0); ANION GAP 11 (8-16); BLOOD UREA NITROGEN 49 MG/DL (7-18); BUN/CREATININE RATIO 8.5 (6.6-38.0); CALCIUM 9.4 MG/DL (8.5-10.1); CHLORIDE 96 MMOL/L (99-107); CREATININE 5.75 MG/DL (0.40-0.90); GLUCOSE 134 MG/DL (70-104); POTASSIUM 4.5 MMOL/L (3.5-5.1); SODIUM 137 MMOL/L (135-145); TOTAL CARBON DIOXIDE 30.3 MMOL/L (24-32); eGFR 7 ML/MIN
[2021-08-29 11:28] LABS: ANISOCYTOSIS 2+; ELLIPTOCYTES 1+; HYPOCHROMASIA 1+; PLATELET ESTIMATE NORMAL; POLYCHROMASIA FEW
== END 2021-08-29 15:10 ==
LOC: SSTAY O 09:14
PROVIDERS: ATTEND Radiology Diagnostic Radiology
DX: T82.858A Stenosis of other vascular prosthetic devices, implants and grafts, initial encounter (principal); E11.22 Type 2 diabetes mellitus with diabetic chronic kidney disease; I12.0 Hypertensive chronic kidney disease with stage 5 chronic kidney disease or end stage renal disease; N18.6 End stage renal disease; Z79.01 Long term (current) use of anticoagulants; Z79.899 Other long term (current) drug therapy; Z20.822 Contact with and (suspected) exposure to COVID-19; Z80.52 Family history of malignant neoplasm of bladder; Z83.3 Family history of diabetes mellitus; Z82.49 Family history of ischemic heart disease and other diseases of the circulatory system; Y83.2 Surgical operation with anastomosis, bypass or graft as the cause of abnormal reaction of the patient, or of later complication, without mention of misadventure at the time of the procedure; Y92.89 Other specified places as the place of occurrence of the external cause
CPT/HCPCS: 36415; 36901; 36907; 80048; 85025; 85610; 87635; 99152; 99153; C1725; C1769; C1894; C9803; J2250; J3010; J3490; 36902; 85008